=== PATIENT | male | born 1980 | race Caucasian/White ===

== ENCOUNTER → 2017-12-18 12:41 | Outpatient (CLI) | payer OTHER, SELFPAY ==
--- NOTE | 2017-12-18 | XR_ITS ---
Fluoroscopy-guided left shoulder joint injection FL fluoroscopy <1hr, XR shoulder LT 1V CLINICAL INDICATION: ITS.REASON: LT SHOULDER INJURY, PAIN ORDERING PHYSICIAN: Dagoberto Bell MD PATIENT AGE: 37 years COMPARISON: None TECHNIQUE: Following obtaining informed consent aseptic conditions and local anesthesia with 1% lidocaine using fluoroscopy guidance and the anterior approach 22-gauge spinal needle was inserted along the superior medial aspect of the left humeral head within the joint capsule and a small amount of Isovue-300 injected to confirm location and sided joint capsule. Contrast flowed freely about the joint. A mixture of 1 mL of betamethasone, 2 mL's lidocaine, 2 mL bupivacaine was injected without incident. Single view left shoulder: Shows contrast within the joint and joint capsule. No fracture or other significant anomalies. IMPRESSION: Status post fluoroscopy-guided left shoulder joint injection as described above without evidence of immediate complication
== END ==
PROVIDERS: Family Provider Physician Assistant; PCP Physician Assistant; Visit Provider Orthopaedic Surgery
DX: M75.42 Impingement syndrome of left shoulder (principal)
CPT/HCPCS: 73020; 76000

== ENCOUNTER → 2018-03-20 12:53 | Outpatient (CLI) | payer OTHER, SELFPAY ==
--- NOTE | 2018-03-20 12:55 | MR_ITS ---
MR shoulder LT w con, IR arthrogram shoulder LT HISTORY: Left arm pain weakness and limited range of motion, suspected SLAP injury ITS.REASON: SLAP ORDERING PHYSICIAN: Abner Campos MD PATIENT AGE: 37 years COMPARISON: 06/18/2017 IR arthrogram shoulder LT.: TECHNIQUE: Following obtaining informed consent under aseptic conditions with fluoroscopic guidance and local anesthesia with 1% buffered lidocaine using the anterior approach approximately 20 mL's of a mixture of Isovue, gadolinium, and normal saline injected into the left shoulder joint. The patient tolerated the procedure well without evidence of immediate complication. FINDINGS: Homogeneous filling of the left shoulder joint without significant resistance. No abnormal collection of contrast that would indicate a rotator cuff tear. MRI arthrogram: TECHNIQUE: Routine post arthrographic images obtained supplemented with ABER images FINDINGS: There is slight increased T2 signal of the acromioclavicular joint suggesting some mild edema with minimal hypertrophic change along the undersurface of the acromion with minimal impingement upon the supraspinatus muscle and tendon. Mild thickening of the supraspinatus tendon and there is slight increased T2 signal of the distal aspect of the infraspinatus tendon suggesting tendinopathy/tendinosis. There is a small subarticular cyst involving the base of the greater tuberosity medially. There is no evidence of rotator cuff tear. No contrast collection in the subdeltoid region. The glenoid labrum has an unremarkable appearance. No evidence of SLAP lesion. Unremarkable appearing glenohumeral ligaments. Bicipital tendon is in place. No evidence of tendon tear. The rotator interval has an unremarkable gas. IMPRESSION: 1. No evidence of rotator cuff tear or glenoid labral tear. 2. Mild tendinopathy/tendinosis of the supraspinatus and infraspinatus tendons with minimal impingement upon the supraspinatus tendon
== END ==
PROVIDERS: Family Provider Physician Assistant; PCP Physician Assistant; Visit Provider Orthopaedic Surgery
DX: S43.432A Superior glenoid labrum lesion of left shoulder, initial encounter (principal)
CPT/HCPCS: 73040; 73222

== ENCOUNTER → 2018-04-16 11:39 | Outpatient (CLI) | payer OTHER, SELFPAY ==
[2018-04-16 11:59] LABS: Basophils % 0.5 % (0.1-2.0); Eosinophils # 0.5 K/mm3 (0.0-0.4); Eosinophils % 5.8 % (0.1-12.0); Lymphocytes # 3.1 K/mm3 (0.7-4.5); Lymphocytes % 35.5 K/mm3 (10-50); Mean Corpuscular HGB Conc 32.2 g/dL (31.8-35.4); Mean Corpuscular Hemoglobin 28.7 pg (27.0-31.2); Mean Corpuscular Volume 89.2 fl (80-94); Mean Platelet Volume 7.8 fl (7.4-10.4); Monocytes # 0.5 K/mm3 (0.1-1.0); Monocytes % 5.8 % (1.7-9.3); Neutrophils # 4.6 K/mm3 (1.8-7.8); Neutrophils % 52.4 % (37.0-80.0); Platelet Count 190 K/mm3 (142-424); Red Blood Count 6.39 M/mm3 (4.60-6.20); Red Cell Distribution Width 13.6 % (11.5-17.5); White Blood Count 8.8 K/mm3 (4.8-10.8)
--- NOTE | 2018-04-16 12:04 | XR_ITS ---
XR chest 2V HISTORY: ITS.REASON: H/O TOBACCO USE ORDERING PHYSICIAN: Abner Campos MD PATIENT AGE: 37 years COMPARISON: None FINDINGS: Unremarkable cardiovascular structures. There is coarsening of the perihilar and lower lobe markings nonspecific but may be seen with chronic peribronchial inflammatory change/smoking-related lung disease. No lobar consolidation or collapse. No acute bony anomalies. IMPRESSION: Coarsened bronchovascular markings consistent with smoking-related lung disease
[2018-04-16 12:05] LABS: Hemoglobin 18.5 g/dL (14.1-18.0)
[2018-04-16 13:05] LABS: Anion Gap 12.2 mEq/L (5-15); Blood Urea Nitrogen 12 mg/dL (7-18); Carbon Dioxide 28 mmol/L (21.0-32.0); Chloride 104 mmol/L (98-107); Creatinine,Serum 0.73 mg/dL (0.70-1.30); Estimated Glomerular Filt Rate 122 ml/min (>60); GFR (African American) 147 ML/MIN (>60); Glucose 95 mg/dL (74-106); Potassium 4.2 mmoL/L (3.5-5.1); Sodium 140 mmol/L (136-145)
== END ==
PROVIDERS: Visit Provider Orthopaedic Surgery
DX: Z01.818 Encounter for other preprocedural examination (principal); S49.92XD Unspecified injury of left shoulder and upper arm, subsequent encounter; M75.42 Impingement syndrome of left shoulder; M67.912 Unspecified disorder of synovium and tendon, left shoulder; M75.22 Bicipital tendinitis, left shoulder; M19.012 Primary osteoarthritis, left shoulder; Y99.0 Civilian activity done for income or pay
CPT/HCPCS: 36415; 71046; 80048; 85025

== ENCOUNTER → 2018-07-29 13:25 | Outpatient (CLI) | payer OTHER, SELFPAY ==
--- NOTE | 2018-07-29 13:28 | XR_ITS ---
XR shoulder LT min 2V HISTORY: Shoulder pain, follow-up surgery ITS.REASON: 3 month shoulder sx follow up; sx 04/28/18 ORDERING PHYSICIAN: Abner Campos MD PATIENT AGE: 38 years Comparison: None FINDINGS: The glenohumeral joint and acromioclavicular joint has an unremarkable appearance. There is a well-circumscribed lucent defect in the proximal shaft of the humerus likely related to a surgical defect. Please correlate with surgical history. IMPRESSION: Small lucent defect of the proximal humerus which may be postsurgical otherwise no change with no acute finding
== END ==
PROVIDERS: PCP Physician Assistant; Visit Provider Orthopaedic Surgery
DX: Z09 Encounter for follow-up examination after completed treatment for conditions other than malignant neoplasm (principal)
CPT/HCPCS: 73030

== ENCOUNTER → 2018-08-12 09:59 | Outpatient (CLI) | payer OTHER, SELFPAY ==
[2018-08-12 11:40] LABS: Basophils # 0.1 K/mm3 (0-0.2); Eosinophils # 0.4 K/mm3 (0.0-0.4); Mean Platelet Volume 7.9 fl (7.4-10.4); Monocytes # 0.6 K/mm3 (0.1-1.0)
[2018-08-12 11:51] LABS: Basophils % 0.7 % (0.1-2.0); Hematocrit 56.5 % (42.0-52.0); Lymphocytes # 3.1 K/mm3 (0.7-4.5); Lymphocytes % 36.7 K/mm3 (10-50); Mean Corpuscular HGB Conc 33.1 g/dL (31.8-35.4); Mean Corpuscular Hemoglobin 29.9 pg (27.0-31.2); Mean Corpuscular Volume 90.4 fl (80-94); Monocytes % 7.2 % (1.7-9.3); Neutrophils # 4.2 K/mm3 (1.8-7.8); Neutrophils % 50.4 % (37.0-80.0); Platelet Count 201 K/mm3 (142-424); Red Blood Count 6.25 M/mm3 (4.60-6.20); Red Cell Distribution Width 13.5 % (11.5-17.5); White Blood Count 8.4 K/mm3 (4.8-10.8)
[2018-08-12 11:52] LABS: Anion Gap 13.6 mEq/L (5-15); Blood Urea Nitrogen 16 mg/dL (7-18); Calcium 9.7 mg/dL (8.5-10.1); Carbon Dioxide 30 mmol/L (21.0-32.0); Chloride 102 mmol/L (98-107); Creatinine,Serum 0.86 mg/dL (0.70-1.30); Estimated Glomerular Filt Rate 100 ml/min (>60); GFR (African American) 121 ML/MIN (>60); Glucose 90 mg/dL (74-106); Potassium 4.6 mmoL/L (3.5-5.1); Sodium 141 mmol/L (136-145)
[2018-08-12 11:57] LABS: Hemoglobin 18.7 g/dL (14.1-18.0)
== END ==
PROVIDERS: PCP Physician Assistant; Visit Provider Orthopaedic Surgery
DX: Z01.812 Encounter for preprocedural laboratory examination (principal)
CPT/HCPCS: 36415; 80048; 85025

== ENCOUNTER 2018-12-21 09:00 | Outpatient (RCR) | payer OTHER, SELFPAY ==
--- NOTE | 2018-06-17 14:32 | HMH.OTOPEV ---
OT Inpatient Evaluation Rehab OT Outpatient Eval Start: 06/17/18 14:19 Freq: Status: Active Protocol: Document 06/17/18 14:20 TFRY (Rec: 06/17/18 14:32 TFRY [id number]) Electronically Signed By Yumi Davey, OT 06/17/18 14:20 Outpatient Therapy Subjective History Subjective History This is 37 year old left handed male referred to occupational therapy as patient is status post glenohumeral debridement, bicep tenotomy, distal clavicle excision, SAD, open bicep tendoesis. Patient underwent surgery on 04/28/18. 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 Chief Complaint Pain Stiff Symptom Type Sharp Dull Other Symptoms Relieved By Rest/Positioning Symptoms Aggravated By Physical Activity Prior Functional Limitations None Current Functional Limitations Reaching Lifting Housework Sleeping Recreation Activity Level of pain today (0-10) 2 Pain scale - at its best (0-10) 2 Pain scale - at its worst (0-10) 7 Shoulder/Elbow Eval Shoulder Objective Measurements Palpation Tenderness tenderness shoulder exam standard left swelling shoulder exam standard left Shoulder ROM Left Shoulder ROM Limitations Pain Shoulder Abduction Active Range of 60 Motion (degrees) Shoulder Abduction Passive Range of 75 Motion (degrees) Shoulder Flexion Active Range of Motion 75 (degrees) Query Text: Shoulder Flexion Passive Range of Motion 108 (degrees) Shoulder External Rotation Active Range 5 of Motion (degrees) Shoulder External Rotation Passive Range 45 of Motion (degrees) Shoulder Internal Rotation Active Range WFL of Motion (degrees) Shoulder Internal Rotation Passive Range 48 of Motion (degrees) Shoulder Extension Active Range of 28 Motion (degrees) pain with active ROM shoulder exam left standard pain with passive ROM shoulder exam left standard decreased ROM shoulder exam standard left Shoulder MMT Shoulder Strength Reason Not Measured Orthopedic Precautions Elbow Objective Measurements OT Outpatient Assessment
--- NOTE | 2018-10-26 09:41 | HMH.RHREAS ---
Rehab Reassessment Rehab OP Re-assessment Start: 08/31/18 09:08 Freq: Status: Active Protocol: Document 10/26/18 08:35 TFRY (Rec: 10/26/18 09:41 TFRY [id number]) Electronically Signed By Yumi Davey OT 10/26/18 08:35 Rehab Re-assessment Subjective Subjective IT JUST HURTS EVERY ONCE IN A WHILE. Objective Objective Notes PATIENT SEEN THIS DATE FOR SKILLED OT SERVICES. REASESSMENT OF LEFT SHOULDER ROM: PROM - FLEXION - 0-168 AROM - FLEXION - 0-168 ABDUCTION - 0-180 ABDUCTION - 0-140 INT. ROT. - 0-82 INT. ROT. - 0-60 EXT. ROT. - 0-85 EXT. ROT. - 0-72 EXTENSION - 0-55 EXTENSION - 0-53 STRENGTH - FLEXION - 4/5 ABDUCTION - 4/5 INT. ROT. - 4/4+/5 EXT. ROT. - 4/5 EXTENSION - 4/5 PATIENT REPORTS THAT HE HIS ABLE TO DO ALL ADL'S AND OCCASSIONALLY HAS PAIN. EXT. ROT. - 0-85 Assessment Progress Assessment Progressing as Expected Assessment Notes PATIENT IS MAKING PROGRESS WITH STRENGTH AND AROM. Patient goals met STG'S - 8/8 LTG'S - /7 Goals Not Met STRENGTH AND ADVANCED HEP Revised Goals PATIENT TO DEMONSTRATE ABILITY TO LIFT BILATERALLY 150 LBS AWAY FROM BODY FROM GROUND TO OVERHEAD 3 TIMES IN A ROW IN 8 WEEKS. Plan Plan CONTINUE WORKING ON 2 UNMET LTGS AND REVISED GOAL. Frequency of Therapy 2X WEEK Duration of therapy 8 WEEKS Time and Billing Re-Eval Time 5 Re-Eval Billing Units 0 PHYSICIAN CERTIFICATION: I certify the specified therapy services for Elan Saavedra are required, authorized, and reviewed every 30 days.
--- NOTE | 2018-12-21 09:37 | HMH.RHREAS ---
Rehab Reassessment Rehab OP Re-assessment Start: 08/31/18 09:08 Freq: Status: Active Protocol: Document 12/21/18 08:59 TFRY (Rec: 12/21/18 09:36 TFRY [id number]) Electronically Signed By Yumi Davey OT 12/21/18 08:59 Rehab Re-assessment Subjective Subjective I DON'T GO BACK TO THE DOCTOR TILL END OF MONTH. Objective Objective Notes PATIENT SEEN THIS DATE FOR SKILLED OT SERVICES. LEFT SHOULDER AROM - FLEXION - 0- 175 ABDUCTION - 0-135 INT ROT - 0-85 EXT ROT - 0-60 PROM - ABDUCTION - 0-166 LEFT SHOULDER STRENGTH - 5/5 THROUGHOUT DEMONSTRATED ABILITY TO LIFT 80 LBS TO WAIST VERBALIZED UNDERSTANDING OF HEP Assessment Progress Assessment Progressing as Expected Assessment Notes ROM IMPROVED ONLY LIMITATION IS WITH ABDUCTION. 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 Time and Billing Re-Eval Time 5 Re-Eval Billing Units 0 PHYSICIAN CERTIFICATION: I certify the specified therapy services for Elan Saavedra are required, authorized, and reviewed every 30 days.
== END 2019-01-18 13:01 | disposition home or self-care (01) ==
LOC: OT 09:00
PROVIDERS: Family Provider Physician Assistant; PCP Physician Assistant; Visit Provider Orthopaedic Surgery
DX: M75.42 Impingement syndrome of left shoulder (principal); M67.912 Unspecified disorder of synovium and tendon, left shoulder; M75.22 Bicipital tendinitis, left shoulder; M19.012 Primary osteoarthritis, left shoulder
CPT/HCPCS: 97014; 97110; 97140; 97164; 97165; G0283

== ENCOUNTER 2018-12-31 11:20 | Outpatient (RCR) | payer OTHER, SELFPAY | END 2018-12-31 11:30 | disposition home or self-care (01) | LOC: PT 11:20 | PROVIDERS: Visit Provider Orthopaedic Surgery | DX: G56.02 Carpal tunnel syndrome, left upper limb (principal) | CPT/HCPCS: 97760 ==

== ENCOUNTER → 2019-01-13 12:54 | Outpatient (CLI) | payer OTHER, SELFPAY ==
--- NOTE | 2019-01-13 12:57 | MR_ITS ---
MR shoulder LT wo con HISTORY:Left shoulder pain and stiffness with limited range of motion ITS.REASON: had surgery 04/2018; still having stiffness ORDERING PHYSICIAN: Abner Campos MD PATIENT AGE: 38 years Comparison: 03/20/2018 TECHNIQUE: Standard multiplanar multiecho sequences are performed without contrast. FINDINGS: Acromioclavicular hypertrophic changes are less apparent presumed status post surgery. The impingement upon the supraspinatus tendon has decreased from the previous exam. No evidence of rotator cuff tear. The supra and infraspinatus tendons have an unremarkable appearance as does the subscapularis and teres minor tendon. No obvious labral tear. There is mild degree of motion artifact does of skier fine detail. The motion artifact is more prominent on the sagittal and axial images. There is a defect within the proximal shaft of the humerus anteriorly and may be due to transfer of the long head of the biceps tendon. IMPRESSION: 1. No evidence of rotator cuff tear or labral tear. 2. Postsurgical changes of the AC joint with decrease in the impingement upon the supraspinatus tendon 3. Defect within the anterior and proximal cortex of the humerus which may be due to bicipital tendon transfer
== END ==
PROVIDERS: PCP Nurse Practitioner Family; Visit Provider Orthopaedic Surgery
DX: M25.612 Stiffness of left shoulder, not elsewhere classified (principal); M75.42 Impingement syndrome of left shoulder
CPT/HCPCS: 73221

== ENCOUNTER → 2019-01-21 12:00 | Outpatient (CLI) | payer OTHER, SELFPAY ==
--- NOTE | 2019-01-21 12:03 | CA_ITS ---
PROCEDURE: 2-D M-mode and color Doppler study INDICATIONS FOR THE TEST: Chest painX COPD Heart Murmur Tobacco Smoking Palpitations Fatigue Syncope Edema HypertensionXDiabetes Mellitus Rheumatic Fever SOBXDOE Obesity Hyperlipidemia Family History HD Additional History ABN EKG,PRE OP GASTRIC SLEEVE PATIENT INFORMATION HEIGHT: 73 WEIGHT:322 GENDER: Male B/P:147/82 2-D/M-MODE INTERPRETATION: 2-D MEASUREMENTS OBSERVED VALUES IN CMS Right Ventricular Dimension (RVDd) 2.1 Interventricular Septum (Thickness)(IVsd) .9 Left Ventricular Internal Dimensions(LVIDd) 5.7 Left Ventricular Posterior Wall (Thickness)(LVPWd) .9 Aortic Root 3.5 Aortic Cusp Separation 2.0 Left Atrial Dimensions (LAD) 2.3 2D 1. Left atrium is normal size, left ventricle is normal size, no concentric left ventricular hypertrophy, visually estimated ejection fraction 55% with no regional wall motion abnormality. 2. The right atrium and right ventricle are normal size and contractility. 3. The aortic, mitral and tricuspid valvular grossly normal. 4. The pulmonic valve is poorly visualized. 5. No significant pericardial effusion noted. DOPPLER INTERROGATION: Doppler interrogation of the aortic, mitral and tricuspid valvular presence of mild mitral and tricuspid regurgitation, tricuspid regurgitation jet velocity is inadequate for calculation of the right ventricular systolic pressure, diastolic parameters are within normal range. CONCLUSION: 1. Normal left ventricular size, preserved left ventricular systolic function, visually estimated ejection fraction 55% with no regional wall motion abnormality, diastolic parameters are within normal range. 2. Mild mitral and tricuspid regurgitation 3. No significant pericardial effusion noted.
== END ==
PROVIDERS: PCP Nurse Practitioner Family; Visit Provider Internal Medicine
DX: Z01.818 Encounter for other preprocedural examination (principal); R06.02 Shortness of breath; R07.9 Chest pain, unspecified; R94.31 Abnormal electrocardiogram [ECG] [EKG]; I10 Essential (primary) hypertension
CPT/HCPCS: 93017; 93306

== ENCOUNTER → 2019-02-09 14:58 | Outpatient (CLI) | payer OTHER, SELFPAY ==
--- NOTE | 2019-02-09 15:12 | XR_ITS ---
XR chest 2V HISTORY: ITS.REASON: history of smoking and hypertension ORDERING PHYSICIAN: Abner Campos MD PATIENT AGE: 38 years COMPARISON: 04/16/2018 FINDINGS: The cardiomediastinal silhouette and pulmonary vascularity are within normal limits. The lungs are clear without infiltrates, suspicious nodules, or pleural effusions. No acute bony abnormalities. IMPRESSION: Negative chest, no acute finding
[2019-02-09 15:29] LABS: Basophils # 0.1 K/mm3 (0-0.2); Basophils % 0.5 % (0.1-2.0); Eosinophils # 0.3 K/mm3 (0.0-0.4); Eosinophils % 3.4 % (0.1-12.0); Hematocrit 49.9 % (42.0-52.0); Hemoglobin 16.9 g/dL (14.1-18.0); Lymphocytes # 3.9 K/mm3 (0.7-4.5); Lymphocytes % 39.9 % (10-50); Mean Corpuscular HGB Conc 33.8 g/dL (31.8-35.4); Mean Corpuscular Hemoglobin 29.8 pg (27.0-31.2); Mean Corpuscular Volume 88.2 fl (80-94); Mean Platelet Volume 7.5 fl (7.4-10.4); Monocytes # 0.5 K/mm3 (0.1-1.0); Monocytes % 5.6 % (1.7-9.3); Neutrophils # 4.9 K/mm3 (1.8-7.8); Neutrophils % 50.6 % (37.0-80.0); Platelet Count 210 K/mm3 (142-424); Red Blood Count 5.66 M/mm3 (4.60-6.20); Red Cell Distribution Width 13.3 % (11.5-17.5); White Blood Count 9.7 K/mm3 (4.8-10.8)
[2019-02-09 16:21] LABS: Alanine Aminotransferase 36 U/L (12-78); Albumin Level 3.9 gm/dL (3.4-5.0); Alkaline Phosphatase 78 U/L (46-116); Anion Gap 17.2 mEq/L (5-15); Aspartate Amino Transferase 19 U/L (15-37); Bilirubin,Total 0.4 mg/dL (0.2-1.0); Blood Urea Nitrogen 18 mg/dL (7-18); Calcium 9.1 mg/dL (8.5-10.1); Carbon Dioxide 26 mmol/L (21.0-32.0); Chloride 102 mmol/L (98-107); Creatinine,Serum 1.05 mg/dL (0.70-1.30); Estimated Glomerular Filt Rate 79 ml/min (>60); GFR (African American) 96 ML/MIN (>60); Globulin 3.8 gm/dl (1.3-3.2); Glucose 121 mg/dL (74-106); Potassium 4.2 mmoL/L (3.5-5.1); Sodium 141 mmol/L (136-145); Total Protein,Serum 7.7 gm/dL (6.4-8.2)
== END ==
PROVIDERS: Visit Provider Orthopaedic Surgery
DX: Z01.818 Encounter for other preprocedural examination (principal)
CPT/HCPCS: 36415; 71046; 80053; 85025

== ENCOUNTER → 2019-02-19 09:58 | Outpatient (CLI) | payer OTHER, SELFPAY ==
[2019-02-19 14:21] LABS: Basophils % 0.4 % (0.1-2.0); Eosinophils # 0.4 K/mm3 (0.0-0.4); Hemoglobin 14.9 g/dL (14.1-18.0); Lymphocytes # 3.5 K/mm3 (0.7-4.5); Lymphocytes % 35.9 % (10-50); Mean Corpuscular HGB Conc 33.9 g/dL (31.8-35.4); Mean Corpuscular Volume 88.5 fl (80-94); Mean Platelet Volume 8.3 fl (7.4-10.4); Monocytes # 0.6 K/mm3 (0.1-1.0); Monocytes % 6.4 % (1.7-9.3); Neutrophils # 5.3 K/mm3 (1.8-7.8); Neutrophils % 53.4 % (37.0-80.0); Platelet Count 237 K/mm3 (142-424); Red Blood Count 4.97 M/mm3 (4.60-6.20); Red Cell Distribution Width 13.5 % (11.5-17.5); White Blood Count 9.8 K/mm3 (4.8-10.8)
[2019-02-19 14:33] LABS: Alanine Aminotransferase 34 U/L (12-78); Albumin Level 3.4 gm/dL (3.4-5.0); Alkaline Phosphatase 64 U/L (46-116); Anion Gap 11.6 mEq/L (5-15); Aspartate Amino Transferase 15 U/L (15-37); Bilirubin,Total 0.4 mg/dL (0.2-1.0); Blood Urea Nitrogen 26 mg/dL (7-18); Calcium 8.8 mg/dL (8.5-10.1); Carbon Dioxide 30 mmol/L (21.0-32.0); Chloride 104 mmol/L (98-107); Cholesterol 182 mg/dL (140-200); Estimated Glomerular Filt Rate 84 ml/min (>60); Free T4 (Free Thyroxine) 0.83 ng/dl (0.76-1.46); GFR (African American) 102 ML/MIN (>60); Globulin 3.3 gm/dl (1.3-3.2); Glucose 88 mg/dL (74-106); HDL Cholesterol 45 mg/dL (27-67); LDL Cholesterol 118 mg/dL (0-130); Potassium 4.6 mmoL/L (3.5-5.1); Sodium 141 mmol/L (136-145); Thyroid Stimulating Hormone 4.88 uIU/ml (0.358-3.740); Total Protein,Serum 6.7 gm/dL (6.4-8.2); Triglycerides 94 mg/dL (30-200); VLDL Cholesterol 19 mg/dL (0-40)
[2019-02-25 09:48] LABS: Cotinine None Detected (.); Nicotine None Detected (.)
== END ==
PROVIDERS: PCP Nurse Practitioner Family; Visit Provider Nurse Practitioner Family
DX: F17.201 Nicotine dependence, unspecified, in remission (principal); E66.01 Morbid (severe) obesity due to excess calories; I10 Essential (primary) hypertension
CPT/HCPCS: 36415; 80053; 80061; 80323; 84439; 84443; 85025; G0480

== ENCOUNTER → 2019-03-24 10:18 | Outpatient (CLI) | payer OTHER, SELFPAY ==
--- NOTE | 2019-03-24 | NVE_ITS ---
Venous Exam Indications: 782.3 Edema. IMPRESSIONS 1. There is no evidence of significant Reflux. 2. No evidence of deep or superficial vein thrombosis involving the right lower extremity and left lower extremity History: Swelling of both lower extremities. Risk factors: Hypertension. Patient has bruising that showed up yesterday on the right foot and has now spread up to the ankle. He denies trauma. Edema present. Complete lower extremity venous duplex evaluation. Doppler flow study including spectral analysis, color and hensley scale imaging. Location: Vascular laboratory. Patient status: Outpatient. Tables: Venous flow and imaging: + +-------+ + Location Overall Flow properties + +-------+ + Right common femoral Patent Normal phasicity; spontaneous; normal augmentation; compressible + +-------+ + Right saphenofemoral junction Patent Compressible + +-------+ + Right profunda femoral Patent Compressible + +-------+ + Right femoral Patent Normal phasicity; spontaneous; normal augmentation; compressible; no reflux + +-------+ + Right greater saphenous Patent Normal phasicity; spontaneous; normal augmentation; compressible + +-------+ + Right popliteal Patent Normal phasicity; spontaneous; normal augmentation; compressible + +-------+ + Right posterior tibial Patent Compressible + +-------+ + Right peroneal Patent Compressible + +-------+ + Right gastrocnemius Patent Compressible + +-------+ + Right soleal Patent Compressible + +-------+ + Left common femoral Patent Normal phasicity; spontaneous; normal augmentation; compressible + +-------+ + Left saphenofemoral junction Patent Compressible + +-------+ + Left profunda femoral Patent Compressible + +-------+ + Left femoral Patent Normal phasicity; spontaneous; normal augmentation; compressible + +-------+ + Left greater saphenous Patent Normal phasicity; spontaneous; normal augmentati
--- NOTE | 2019-03-24 10:58 | XR_ITS ---
XR foot RT min 3V HISTORY: Foot pain ITS.REASON: RT LEG PAIN ORDERING PHYSICIAN: Jocelynn Thurston PATIENT AGE: 38 years COMPARISON: None FINDINGS: No fracture or dislocation. No lytic or blastic change. There is normal mineralization.. The joint spaces are well-preserved. No significant degenerative/arthritic changes. No erosive changes evident. IMPRESSION: Negative, no acute finding
--- NOTE | 2019-03-24 10:58 | XR_ITS ---
XR ankle RT min 3V HISTORY: ITS.REASON: RT LEG PAIN ORDERING PHYSICIAN: Jocelynn Thurston PATIENT AGE: 38 years Comparison: None FINDINGS: No fracture or dislocation. No lytic or blastic change. There is normal mineralization.. The joint spaces are well-preserved. No significant degenerative/arthritic changes. No erosive changes evident. There is mild soft tissue swelling at the ankle on both sides. IMPRESSION: Mild soft tissue swelling otherwise negative
--- NOTE | 2019-03-24 10:58 | XR_ITS ---
XR tibia fibula RT 2V CLINICAL INDICATION: ITS.REASON: RT LEG PAIN ORDERING PHYSICIAN: Jocelynn Thurston PATIENT AGE: 38 years Comparison: None FINDINGS: No fracture or dislocation. No lytic or blastic change. Tiny calcific density overlies the tibial tuberosity region within the soft tissues at 1 to 2 mm nonspecific. IMPRESSION: No acute finding
== END ==
PROVIDERS: PCP Nurse Practitioner Family; Visit Provider Nurse Practitioner Family
DX: M79.604 Pain in right leg (principal); M79.671 Pain in right foot; M25.571 Pain in right ankle and joints of right foot
CPT/HCPCS: 73590; 73610; 73630; 93970

== ENCOUNTER → 2019-05-06 13:02 | Outpatient (CLI) | payer OTHER, SELFPAY ==
--- NOTE | 2019-05-06 13:08 | XR_ITS ---
XR shoulder LT min 2V HISTORY: ITS.REASON: left shoulder pain/ sp sx 02/10/19 ORDERING PHYSICIAN: Abner Campos MD COMPARISON:: 01/13/2019 FINDINGS: The distal aspect of the clavicle is missing compared to the previous exam consistent with an osteotomy with widening of the acromioclavicular joint space. A small defect once again noted in the proximal shaft of the humerus which may be postsurgical. The glenohumeral joint has an unremarkable appearance. IMPRESSION: Postsurgical changes, no acute finding
== END ==
PROVIDERS: PCP Nurse Practitioner Family; Visit Provider Orthopaedic Surgery
DX: Z09 Encounter for follow-up examination after completed treatment for conditions other than malignant neoplasm (principal); M75.42 Impingement syndrome of left shoulder
CPT/HCPCS: 73030

== ENCOUNTER → 2019-06-01 13:18 | Outpatient (CLI) | payer OTHER, SELFPAY | PROVIDERS: PCP Nurse Practitioner Family; Visit Provider Internal Medicine Pulmonary Disease | DX: G47.33 Obstructive sleep apnea (adult) (pediatric) (principal) | CPT/HCPCS: 95806 ==

== ENCOUNTER 2019-07-07 09:00 | Outpatient (RCR) | payer OTHER, SELFPAY ==
--- NOTE | 2019-02-11 09:53 | HMH.OTOPEV ---
OT Inpatient Evaluation Rehab OT Outpatient Eval Start: 02/11/19 09:42 Freq: Status: Active Protocol: Document 02/11/19 09:42 TFRY (Rec: 02/11/19 09:53 TFRY [id number]) Electronically Signed By Yumi Davey, OT 02/11/19 09:42 Outpatient Therapy Subjective History Subjective History This is a 38 year old left handed male referred to occupational therapy as he underwent arthroscopic revision DCE,SAD, and capsule release to left shoulder on . Patient's initial injury occurried at work. Chief Complaint Pain Stiff Prior Functional Limitations Lifting Current Functional Limitations Reaching Lifting Housework Dressing Sleeping Level of pain today (0-10) 0 Shoulder/Elbow Eval Shoulder Objective Measurements Palpation Tenderness tenderness shoulder exam standard left swelling shoulder exam standard left Shoulder ROM Left Shoulder Abduction Passive Range of 175 Motion (degrees) Shoulder Flexion Passive Range of Motion 175 (degrees) Shoulder External Rotation Passive Range 80 of Motion (degrees) Shoulder Internal Rotation Passive Range 80 of Motion (degrees) Elbow Objective Measurements OT Outpatient Assessment Impairments Problems/Impairments Impaired Range of Motion Impaired Strength Impaired Lifting Impaired Dressing Impaired Shower/Bathing Impaired Household Care Impaired Work Activities Prognosis Rehab Potential Good Clinical Impression Consistent with Diagnosis Yes Short Term Goals Number of Weeks 5 Increase Range of Motion Yes: Left shoulder AROM = PROM Increase Strength Yes: Left Shoulder Strength - 4/5 Restore Ability to Lift Objects to Waist Yes Level Improve Ability to Dress Self Yes Improve Ability to Shower/Bathe Self Yes Improve Ability For Household Care Yes Improve Tolerance to Work Activities Yes Patient to be Ind w/ HEP Yes Patient to be Ind w/ Advanced HEP Yes Longterm Goals Number of Weeks 10 Increase Range of Motion Yes: Left shoulder AROM = PROM Increase Strength Yes: Left Shoulder Strength - 5/5 Rest
--- NOTE | 2019-04-07 09:12 | HMH.RHREAS ---
Rehab Reassessment Rehab OP Re-assessment Start: 04/07/19 08:18 Freq: Status: Active Protocol: Document 04/07/19 08:19 TFRY (Rec: 04/07/19 09:12 TFRY [id number]) Electronically Signed By Yumi Davey OT 04/07/19 08:19 Rehab Re-assessment Subjective Subjective I just have trouble when it comes to things over head. Objective Objective Notes Patient seen this date for skilled occupational therapy services. See exercise flow sheet for exercises. Reassessment of left shoulder AROM: Flexion - 0-155; Abduction - 0-140; int. rot. - 0-80; ext. rot. - 0-70. Left shoulder strength - flexion - 4/5; abduction - 4-/5; int. rot. - 4/5; ext. rot. - 4/5. Patient reports he is able to do everything except he reports that he has difficulty performing overhead tasks. Assessment Progress Assessment Progressing as Expected Assessment Notes AROM and strength improving toward goals. Patient goals met STG's - 6/9 LTG's - 04/25 Goals Not Met Strength and AROM Plan Plan Continue Occupational therapy working on improving strength to 5/5 and continue to work on improving AROM. Frequency of Therapy 2x a week Duration of therapy 5 weeks Time and Billing Re-Eval Time 5 Re-Eval Billing Units 0 PHYSICIAN CERTIFICATION: I certify the specified therapy services for Elan Saavedra are required, authorized, and reviewed every 30 days.
--- NOTE | 2019-05-17 09:50 | HMH.RHREAS ---
Rehab Reassessment Rehab OP Re-assessment Start: 04/07/19 08:18 Freq: Status: Active Protocol: Document 05/17/19 09:36 TFRY (Rec: 05/17/19 09:50 TFRY [id number]) Electronically Signed By Yumi Davey OT 05/17/19 09:36 Rehab Re-assessment Subjective Subjective My pain is a 2 at worse in that shoulder> Objective Objective Notes Patient seen this date for skilled occupational therapy services. See exercise flow sheet for exercises. Reassessment of left shoulder AROM: flexion - 0-160; abduction - 0-135; internal rotation - WFL; external rotation - 0-65. Strength - flexion - 4-/5; abduction - 3+ /5; internal rotation - 3+/5; external rotation - 4-/5. Patient reports that pain is a 2 at worse. Assessment Progress Assessment Slower Than Expected Assessment Notes ROM/strength improving slowly. Recommend to continue therapy may want to consider work conditioning/work hardening in order to return to work. Patient goals met STG's - 9 LTG's - 04/25 Goals Not Met strength and AROM Plan Plan Continue to work toward unmet goals Frequency of Therapy 2x Duration of therapy 6 weeks Time and Billing Re-Eval Time 5 Re-Eval Billing Units 0 PHYSICIAN CERTIFICATION: I certify the specified therapy services for Elan Saavedra are required, authorized, and reviewed every 30 days.
== END 2019-07-07 11:30 | disposition home or self-care (01) ==
LOC: OT 09:00
PROVIDERS: Visit Provider Orthopaedic Surgery
DX: M25.612 Stiffness of left shoulder, not elsewhere classified (principal); M75.52 Bursitis of left shoulder; M75.42 Impingement syndrome of left shoulder; M19.012 Primary osteoarthritis, left shoulder
CPT/HCPCS: 97014; 97110; 97140; 97164; 97165; G0283

== ENCOUNTER → 2019-09-03 12:34 | Outpatient (CLI) | payer OTHER, SELFPAY ==
--- NOTE | 2019-09-03 | ECG_ITS ---
APPROVED REPORT Exam: Resting ECG HR:82 bpm ECG Measurements Heart Rate 82 AXES NV 156 P 69 QRSd 84 QRS 63 QT 344 T 21 QTc 401 <Conclusion> Normal sinus rhythm Normal ECG Electronically signed by : Leroy Roberts, 09/05/2019 14:12:27
--- NOTE | 2019-09-03 12:56 | XR_ITS ---
PROCEDURE: XR CHEST 2V CLINICAL HISTORY: TOBACCO USE, HTN, PRE OP COMPARISON: CXR2V XR chest 2V from 04/16/2018 CXR2V XR chest 2V from 02/09/2019 FINDINGS: The cardiomediastinal silhouette and pulmonary vascularity are within normal limits. The lungs are clear without infiltrates, suspicious nodules, or pleural effusions. No acute bony abnormalities. IMPRESSION: No acute findings. Dictated by: Dr. Ja Fitch MD 09/03/2019 13:[address] Ja Fitch MD in [place] 09/03/2019 13:26
[2019-09-09 21:05] LABS: Cotinine None Detected (.); Nicotine None Detected (.)
== END ==
PROVIDERS: PCP Nurse Practitioner Family; Visit Provider Physician Assistant
DX: Z01.818 Encounter for other preprocedural examination (principal); R12 Heartburn; I10 Essential (primary) hypertension; E66.01 Morbid (severe) obesity due to excess calories; Z71.3 Dietary counseling and surveillance; Z72.0 Tobacco use
CPT/HCPCS: 71046; 80323; 93005; G0480

== ENCOUNTER → 2019-11-05 11:51 | Outpatient (CLI) | payer SELFPAY ==
[2019-11-05 12:27] LABS: Basophils # 0.1 K/mm3 (0-0.2); Basophils % 0.4 % (0.1-2.0); Eosinophils # 0.5 K/mm3 (0.0-0.4); Eosinophils % 3.5 % (0.1-12.0); Hematocrit 57.2 % (42.0-52.0); Lymphocytes # 2.5 K/mm3 (0.7-4.5); Mean Corpuscular HGB Conc 31.4 g/dL (31.8-35.4); Mean Corpuscular Hemoglobin 28.8 pg (27.0-31.2); Mean Corpuscular Volume 91.8 fl (80-94); Mean Platelet Volume 8.3 fl (7.4-10.4); Monocytes # 0.5 K/mm3 (0.1-1.0); Monocytes % 3.8 % (1.7-9.3); Neutrophils # 10.3 K/mm3 (1.8-7.8); Neutrophils % 74.3 % (37.0-80.0); Platelet Count 231 K/mm3 (142-424); Red Blood Count 6.23 M/mm3 (4.60-6.20); Red Cell Distribution Width 13.7 % (11.5-17.5); White Blood Count 13.8 K/mm3 (4.8-10.8)
[2019-11-05 14:25] LABS: Alanine Aminotransferase 38 U/L (12-78); Albumin/Globulin Ratio 1.2 (1.1-1.8); Alkaline Phosphatase 78 U/L (46-116); Anion Gap 15.3 mEq/L (5-15); Aspartate Amino Transferase 24 U/L (15-37); Bilirubin,Total 0.6 mg/dL (0.2-1.0); Blood Urea Nitrogen 7 mg/dL (7-18); Calcium 9.6 mg/dL (8.5-10.1); Carbon Dioxide 29 mmol/L (21.0-32.0); Chloride 103 mmol/L (98-107); Chol/HDL Ratio 6.2 (1-3.5); Cholesterol 210 mg/dL (140-200); Creatinine,Serum 0.89 mg/dL (0.70-1.30); Estimated Glomerular Filt Rate 96 ml/min (>60); Ferritin 243 ng/mL (8-388); GFR (African American) 116 ML/MIN (>60); Globulin 3.4 gm/dl (1.3-3.2); Glucose 81 mg/dL (74-106); HDL Cholesterol 34 mg/dL (27-67); Iron 54 ug/dl (28-170); LDL Cholesterol 158 mg/dL (0-130); Magnesium 1.4 mg/dL (1.4-2.2); Phosphorous 3.3 mg/dL (2.4-4.9); Potassium 4.3 mmoL/L (3.5-5.1); Sodium 143 mmol/L (136-145); Thyroid Stimulating Hormone 2.87 uIU/ml (0.358-3.740); Total Protein,Serum 7.4 gm/dL (6.4-8.2); Triglycerides 90 mg/dL (30-200); VLDL Cholesterol 18 mg/dL (0-40)
[2019-11-05 16:51] LABS: Hemoglobin A1C 5.5 % (0.0-7.0)
[2019-11-06 13:05] LABS: Prealbumin 16 mg/dL (14-35); Vitamin D 25 Hydroxy 20.3 ng/mL (30.0-100.0)
[2019-11-06 17:44] LABS: Parathyroid Hormone Intact 13 pg/mL (15-65)
[2019-11-11 05:18] LABS: Vitamin B1 149.9 nmol/L (66.5-200.0)
[2019-11-12 12:09] LABS: Methylmalonic Acid 120 nmol/L (0-378)
[2019-11-13 21:07] LABS: Vitamin E Alpha Tocopherol 7.5 mg/L (5.9-19.4)
[2019-11-14 16:27] LABS: Vitamin A 21.3 ug/dL (18.9-57.3); Vitamin E Gamma Tocopherol 1.5 mg/L (0.7-4.9)
== END ==
PROVIDERS: Visit Provider Physician Assistant
DX: R63.4 Abnormal weight loss (principal); I10 Essential (primary) hypertension; R53.83 Other fatigue; Z98.84 Bariatric surgery status
CPT/HCPCS: 36415; 80053; 80061; 82131; 82652; 82728; 82746; 83036; 83540; 83735; 83970; 84100; 84134; 84425; 84443; 84446; 84590; 85025

== ENCOUNTER → 2020-01-18 12:50 | Outpatient (CLI) | payer OTHER, SELFPAY ==
--- NOTE | 2020-01-18 12:55 | XR_ITS ---
PROCEDURE: XR FOOT WT BEARING RT 3V CLINICAL INDICATION: hammertoes COMPARISON: No exams were available for comparison FINDINGS: No fracture or dislocation. No lytic or blastic change. There is normal mineralization. The joint spaces are well-preserved. No significant degenerative/arthritic changes. No erosive changes evident. Other findings:None. IMPRESSION: No acute findings. Dictated by: Uday Olivarez MD 01/18/2020 13:30 Electronically signed by Uday Olivarez MD in [place] 01/18/2020 13:30
--- NOTE | 2020-01-18 12:55 | XR_ITS ---
PROCEDURE: XR FOOT WT BEARING LT 3V CLINICAL INDICATION: hammertoes COMPARISON: No exams were available for comparison FINDINGS: No fracture or dislocation. No lytic or blastic change. There is normal mineralization. The joint spaces are well-preserved. No significant degenerative/arthritic changes. No erosive changes evident. Other findings:Flexion deformity involves the 2nd 3rd and 4th toes. IMPRESSION: Second 3rd and 4th hammertoe deformity Dictated by: Uday Olivarez MD 01/18/2020 13:31 Electronically signed by Uday Olivarez MD in [place] 01/18/2020 13:31
== END ==
PROVIDERS: PCP Nurse Practitioner Family; Visit Provider Podiatrist
DX: M20.42 Other hammer toe(s) (acquired), left foot (principal); M20.41 Other hammer toe(s) (acquired), right foot
CPT/HCPCS: 73630

== ENCOUNTER → 2020-04-03 12:00 | Outpatient (CLI) | payer OTHER, SELFPAY ==
--- NOTE | 2020-04-03 12:07 | XR_ITS ---
PROCEDURE: XR CHEST 2V CLINICAL HISTORY: PREOP, FORMER SMOKER Former smoker COMPARISON: CXR2V XR chest 2V from 04/16/2018 CXR2V XR chest 2V from 02/09/2019 XR CHEST 2V from 09/03/2019 FINDINGS: The cardiomediastinal silhouette and pulmonary vascularity are within normal limits. The lungs are clear without infiltrates, suspicious nodules, or pleural effusions. No acute bony abnormalities. IMPRESSION: No acute findings. Dictated by: Uday Olivarez MD 04/03/2020 13:16 Electronically signed by Uday Olivarez MD in [place] 04/03/2020 13:16
--- NOTE | 2020-04-03 12:40 | ECG_ITS ---
APPROVED REPORT Exam: Resting ECG HR:59 bpm ECG Measurements Heart Rate 59 AXES NE 126 P 63 QRSd 88 QRS 42 QT 390 T 44 QTc 386 <Conclusion> Sinus bradycardia Incomplete RBBB Otherwise normal ECG Electronically signed by : Solo Wilson, 04/03/2020 15:44:37
[2020-04-03 13:12] LABS: Basophils # 0.1 K/mm3 (0-0.2); Basophils % 0.8 % (0.1-2.0); Eosinophils # 0.3 K/mm3 (0.0-0.4); Eosinophils % 4.3 % (0.1-12.0); Hematocrit 49.9 % (42.0-52.0); Hemoglobin 16.7 g/dL (14.1-18.0); Lymphocytes % 37.9 % (10-50); Mean Corpuscular HGB Conc 33.5 g/dL (31.8-35.4); Mean Corpuscular Hemoglobin 29.9 pg (27.0-31.2); Mean Corpuscular Volume 89.2 fl (80-94); Mean Platelet Volume 7.9 fl (7.4-10.4); Monocytes # 0.5 K/mm3 (0.1-1.0); Monocytes % 6.7 % (1.7-9.3); Neutrophils % 50.3 % (37.0-80.0); Platelet Count 219 K/mm3 (142-424); Red Blood Count 5.59 M/mm3 (4.60-6.20); Red Cell Distribution Width 14.5 % (11.5-17.5)
[2020-04-03 13:32] LABS: Alanine Aminotransferase 13 U/L (12-78); Albumin Level 4.5 g/dl (3.5-5.0); Albumin/Globulin Ratio 1.5 (1.1-1.8); Alkaline Phosphatase 74 U/L (38-126); Aspartate Amino Transferase 19 U/L (17-59); Bilirubin,Total 0.7 mg/dl (0.2-1.3); Blood Urea Nitrogen 11 mg/dl (9-20); Calcium 9.9 mg/dl (8.4-10.2); Carbon Dioxide 27 mmol/L (22.0-30.0); Chloride 106 mmol/L (98-107); Estimated Glomerular Filt Rate 108 ml/min (>60); GFR (African American) 131 ML/MIN (>60); Globulin 3.1 g/dL (1.3-3.2); Glucose 98 mg/dl (74-100); Sodium 138 mmol/L (136-145); Total Protein,Serum 7.6 g/dl (6.3-8.2)
== END ==
PROVIDERS: PCP Nurse Practitioner Family; Visit Provider Podiatrist
DX: Z01.810 Encounter for preprocedural cardiovascular examination (principal); Z87.891 Personal history of nicotine dependence; M20.42 Other hammer toe(s) (acquired), left foot; M20.12 Hallux valgus (acquired), left foot
CPT/HCPCS: 36415; 71046; 80053; 85025; 93005

== ENCOUNTER → 2020-04-11 09:02 | Outpatient (CLI) | payer OTHER, SELFPAY ==
[2020-04-11 10:12] LABS: Coronavirus 19 IgG Antibody Negative (Negative); Coronavirus 19 IgM Antibody Negative (Negative)
[2020-04-11 11:20] LABS: Chol/HDL Ratio 5.3 (1-3.5); Cholesterol 223 mg/dl (140-200); HDL Cholesterol 42 mg/dl (40-60); Iron 107 ug/dL (49-181); Magnesium 1.8 mg/dl (1.6-2.3); Phosphorous 3.8 mg/dl (2.5-4.5); Triglycerides 112 mg/dl (30-150); VLDL Cholesterol 22 mg/dL (0-40)
[2020-04-11 11:31] LABS: Direct LDL Cholesterol 177.48 mg/dL (100-129)
[2020-04-11 11:51] LABS: Hemoglobin A1C 5.2 % (4.0-6.0)
[2020-04-11 11:52] LABS: Thyroid Stimulating Hormone 3.76 uIU/mL (0.465-4.68)
[2020-04-11 11:56] LABS: Ferritin 129 ng/ml (17.9-464)
[2020-04-12 14:34] LABS: Prealbumin 18 mg/dL (14-35); Vitamin D 25 Hydroxy 20.9 ng/mL (30.0-100.0)
[2020-04-13 09:59] LABS: Parathyroid Hormone Intact 13 pg/mL (15-65)
[2020-04-13 17:44] LABS: Vitamin B1 134.5 nmol/L (66.5-200.0)
[2020-04-14 01:11] LABS: Methylmalonic Acid 262 nmol/L (0-378)
[2020-04-14 08:18] LABS: Vitamin E Alpha Tocopherol 9.4 mg/L (5.9-19.4)
[2020-04-14 13:40] LABS: Vitamin E Gamma Tocopherol 2.1 mg/L (0.7-4.9)
[2020-04-15 11:12] LABS: Vitamin A 24.9 ug/dL (18.9-57.3)
== END ==
PROVIDERS: Visit Provider Podiatrist
DX: Z01.818 Encounter for other preprocedural examination (principal); E53.8 Deficiency of other specified B group vitamins; E55.9 Vitamin D deficiency, unspecified; E66.01 Morbid (severe) obesity due to excess calories; R53.83 Other fatigue; Z98.84 Bariatric surgery status
CPT/HCPCS: 36415; 80061; 82131; 82652; 82728; 82746; 83036; 83540; 83735; 83970; 84100; 84134; 84425; 84443; 84446; 84590; 86328

== ENCOUNTER 2020-04-12 06:09 | Day surgery (SDC) | payer OTHER, SELFPAY ==
--- NOTE | 2020-04-07 08:52 | SUR.PREOP ---
04/07/2020 @ 0900--PHONE CALL MADE TO PATIENT. PATIENT UNDERSTANDS THAT LAB WORK AND COVID TESTING NEEDS TO BE COMPLETED BEFORE 930 ON 04/11/2020. PATIENT UNDERSTANDS IF LAB WORK AND COVID-19 TESTS ARE NOT COMPLETED BY 12PM ON THAT DATE, THE SURGERY SCHEDULED WILL BE CANCELLED AND RESCHEDULED FOR ANOTHER TIME.
[2020-04-11 12:59] VITALS: BMI 34.0
[2020-04-12] VITALS (14 sets, daily range): BP systolic 122–162; BP diastolic 69–99; PULSE 72–100; RESP 12–26; TEMP 36.2–43; O2SAT 92–99
--- NOTE | 2020-04-12 08:05 | HMH.ANESCL ---
[facility] Anesthesia Checklist - Patient Identification Patient Identification: Arm Band, Verbal (Name & ) - Structural Data Admitted From: Home Planned Operative Procedure/s: Left hammertoe repair 2nd-4th, callus debridement, shay osteotomy Consent for Planned Operative Procedure(s) Verified: Yes Verified Documents: Surgical Consent, History and Physical - NPO Status Verified Time NPO: 23:00 - Chart Verification Results Verified: BMP - Additional verifications Anesthesia Reactions: No Hx Blood Transfusions: No Blood Transfusion Reaction: No - Airway Assessment C-Spine Mobility Assessed: Yes TMJ Mobility Assessed: Yes Dentition: Dentures-good fit (removed) - Neurological Assessment Level of Consciousness: Awake, Alert, Appropriate, Follows Commands Hx Seizures: No Numbness or tingling in extremities: No - Anesthesia Plan Anesthesia Risk discussed: Yes Anesthesia Plan: Verified ASA Class: II Anesthesia Type: General w/block (LMA GA with postop pain left popliteal nerve block) [facility] History I have reviewed the patient's past medical history: Yes Medical History: Reports:: Kidney Stones, Ulcer Denies:: Cancer, Diabetes Mellitus Type 1, Diabetes Mellitus Type 2, Internal Pacemaker, MRSA, Seizures *Have you ever received a pneumonia vaccine?: No *Have you received a flu vaccine this season?: Yes Other Medical History: Denies: Blood Transfusion Reaction Comment:: Crohn's disease, obesity Anesthesia experience/problems:: none Laterality Cases: Left: Arthroscopy Shoulder, Bilateral: Tonsillectomy Other Surgeries: Yes: Bariatric Surgery (Gastric Sleeve Oct 08, 2019), Cholecystectomy. No: Pacemaker Amputation: No Fractures: No - *Social History Educational Level: Attended College Smoking Status: Former smoker Tobacco Type: cigarettes # Packs/Day (cigarettes): 1 Alcohol Intake: never Alcohol Intake Frequency:: 0-2 drinks per day Substance Use Type: denies use *Occupational Status:: unemployed Housing: house Household Members: family *Travel in the last 8 weeks: None Family Hx:: No significant family history
--- NOTE | 2020-04-12 09:11 | XR_ITS ---
PROCEDURE: XR FOOT LT 2V CLINICAL INDICATION: HAMMER TOE COMPARISON: XR FOOT WT BEARING RT 3V from 01/18/2020 XR FOOT WT BEARING LT 3V from 01/18/2020 FINDINGS: Fluoroscopy time: 28 seconds Images are submitted following hammertoe surgery with pin placement through the 2nd 3rd 4th and 5th phalanges as well as a staple along the medial aspect of the proximal phalanx of the great toe. Other findings:None. IMPRESSION: Postsurgical changes Dictated by: Uday Olivarez MD 04/12/2020 16:25 Electronically signed by Uday Olivarez MD in [place] 04/12/2020 16:25
--- NOTE | 2020-04-12 09:30 | XR_ITS ---
PROCEDURE: XR FOOT LT MIN 3V CLINICAL INDICATION: Post op HT Follow-up surgery COMPARISON: XR FOOT WT BEARING RT 3V from 01/18/2020 XR FOOT WT BEARING LT 3V from 01/18/2020 XR FOOT LT 2V from 04/12/2020 FINDINGS: Status post osteotomy at the distal aspect of the proximal phalanx of the great toe with a staple noted medially with good alignment. Pins have been placed through the toes from the distal phalanx through the middle phalanx and into the proximal phalanx of the 2nd 3rd 4th and 5th toes with improvement in hammertoe deformity. Posterior splint is in place. IMPRESSION: The postsurgical changes as described above Dictated by: Uday Olivarez MD 04/12/2020 16:18 Electronically signed by Uday Olivaerz MD in [place] 04/12/2020 16:18
--- NOTE | 2020-04-12 09:40 | HMH.ANESI ---
[facility] Anesthesia Record Part I Intake, IV Amount: 1,000 Estimated blood loss (mL): 0 Urine output (mL): 0 Blood Pressure: 154/90 SaO2: 95 Pulse Rate: 96 Respiratory Rate: 12 Temperature: 97.8 F Patient is:: Awake, Stable Stable to PACU at:: 09:35
--- NOTE | 2020-04-12 09:47 | HMH.OPNOTE ---
Date of procedure: 04/12/20 Pre-op Diagnosis:: 1. Left hallux interphalangus 2. Left hammertoe deformity 2?5 3. Left gastrocnemius equinus 4. Left medial plantar hallux callus 5. Left plantar sub-third metatarsal callus/lesion Post-op Diagnosis:: Same Procedure performed:: 1. Left hammertoe repair 2?4 (PIPJ AD with implant) 2. Left hammertoe repair 5 (PIPJ AP) 3. Left [place] osteotomy 4. Left gastrocnemius recession 5. Left callus debridement (excision of lesion) 6. Application of posterior splint Surgeon:: Felicia Beltrán DPM INSPECTION MACHINE TENDER:: Kike Elizabeth Anesthesia: GETA, regional (Left popliteal nerve block) Estimated blood loss (mL): 10 Clinical Note:: Patient is a 39M who presents for continued painful hammertoes. X-rays 3 views b/l feet WB taken 01/18/20, evaluated by myself. Report reviewed. No fracture or dislocation. No lytic or blastic change. There is normal mineralization. The joint spaces are well-preserved. No significant degenerative/arthritic changes. No erosive changes evident. Other findings: Flexion deformity involves the 2nd 3rd and 4th toes. We discussed x-rays and conservative versus surgical treatment options. Conservative treatment options include change shoe wear, prefab or custom molded inserts, strapping, taping and padding. Patient can also take NSAIDs, ice and elevate for pain and swelling. He has wider and deeper shoes to accommodate the deformity. He has used spacers, callus remover, met pads and still has pain. After a long discussion with the patient in regards to the conservative versus surgical treatment for the hammertoe deformity, the patient has elected to proceed with surgery because they have failed conservative treatment and continue to have pain and worsening symptoms affecting daily activities. The patient has been instructed on the planned procedure, all risk versus benefits of the procedure to include bleeding, infection, nerve and blood vessel damage, need for further surgery, delay in healing of soft tissue or bone, failure of bones to heal, non-union, mal-union, prolonged pain and recovery, prolonged swelling, CRPS/RSD, DVT and anesthetic complications. No guarantees were given. All questions fully answered. The patient verbalized understanding and agreed to proceed with surgery. Written consent was obtained. Medical clearance per PCP-Jocelynn Thurston. Necessary labs and pre-op testing ordered: CBC, CMP, EKG, CXR. e-Rx for Ramsey 7.5/325 # 28, Motrin 800mg # 60. Patient states he is okay to take NSAIDs occasionally. He has Zofran left from his right shoulder surgery last year. Patient will need crutches on DOS. Fitted and dispensed short fracture boot (size 12) in office. Operative findings:: Hallux interphalangeus noted with callus on the medial plantar hallux. Callus noted to the plantar third metatarsal deep to the subcutaneous tissue. Hammertoe deformity 2?5. Fourth and fifth toes have adductovarus rotation. Gastroc equinus released with the recession procedure. Operative note:: On this date and time patient was deemed an appropriate surgical candidate. Preop regional left popliteal block by anesthesia. With informed consent signed, the patient was taken to the operating theater. The patient was positioned supine. General anesthesia was induced. Tourniquet was applied to the left mid-calf at 225 mmHg. The left lower extremity was prepped and drapped in normal sterile fashion. Left gastrocnemius recession: Attention was directed to the posterior leg medially a linear incision was mapped out. Dissection was carried through the skin to subcutaneous tissue with care taken to maintain surgical hemostasis and safely retract neurovascular structures. Patient was then carried down bluntly through the subcutaneous tissue to the peritenon overlying the gastrocnemius muscle. The peritenon was transected and preserved for later closure. The gastroc was identified and utilizing a 15 blade a Lexis transverse incision was made while the
--- NOTE | 2020-04-12 21:15 | P.PN_ITS ---
[facility] Anesthesia Record Part II Discharge Time: 11:18 Destination: Home PACU nurse assessment reviewed?: Yes Patient Condition:: Good Anesthesia Complications:: None Swallowing reflex intact?: Yes Cyanosis?: No Blood Pressure: 122/73 Pulse Rate: 73 Temperature: 98.0 F Mental Status: Alert & Oriented Pain level:: 0 Nausea and/or vomitting:: None Intake, IV Amount: 0 Comments:: RR 16, O2sat 99% RA
== END 2020-04-12 11:18 | disposition home or self-care (01) ==
LOC: OR 06:10
PROVIDERS: PCP Nurse Practitioner Family; Visit Provider Podiatrist
PROC: (CPT 27687; principal; 2020-04-12 07:30)
DX: M20.42 Other hammer toe(s) (acquired), left foot (principal); L84 Corns and callosities; M21.6X2 Other acquired deformities of left foot; M24.572 Contracture, left ankle; E55.9 Vitamin D deficiency, unspecified; Z87.891 Personal history of nicotine dependence
CPT/HCPCS: 27687; 28285 ×4; 11055; 73620; 73630; 76000; 96374; C1713; C1769; J2405

== ENCOUNTER → 2020-04-27 10:16 | Outpatient (CLI) | payer OTHER, SELFPAY ==
--- NOTE | 2020-04-27 10:21 | XR_ITS ---
PROCEDURE: XR FOOT WT BEARING LT 3V CLINICAL INDICATION: postop views Follow-up surgery COMPARISON: XR FOOT WT BEARING RT 3V from 01/18/2020 XR FOOT WT BEARING LT 3V from 01/18/2020 XR FOOT LT MIN 3V from 04/12/2020 XR FOOT LT 2V from 04/12/2020 FINDINGS: Pins are once again noted extending from the tip of the distal phalanx into the proximal aspect of the proximal phalanx of the 2nd 3rd and 5th digits. The 4th digit pin has been removed. The proximal aspect of the pin at the 2nd digit extends dorsal to the bone at the proximal phalanx. There is a metallic staple along the medial aspect at osteotomy site at the proximal phalanx of the 1st toe IMPRESSION: Postsurgical changes as described above with good alignment Dictated by: Uday Olivarez MD 04/27/2020 13:52 Electronically signed by Uday Olivarez MD in [place] 04/27/2020 13:52
== END ==
PROVIDERS: PCP Nurse Practitioner Family; Visit Provider Podiatrist
DX: Z98.890 Other specified postprocedural states (principal); M20.42 Other hammer toe(s) (acquired), left foot; M20.12 Hallux valgus (acquired), left foot; B07.8 Other viral warts
CPT/HCPCS: 73630

== ENCOUNTER → 2020-05-11 09:39 | Outpatient (CLI) | payer OTHER, SELFPAY ==
--- NOTE | 2020-05-11 09:46 | XR_ITS ---
PROCEDURE: XR FOOT WT BEARING LT 3V CLINICAL INDICATION: post-op COMPARISON: XR FOOT WT BEARING RT 3V from 01/18/2020 XR FOOT LT MIN 3V from 04/12/2020 XR FOOT LT 2V from 04/12/2020 XR FOOT WT BEARING LT 3V from 04/27/2020 FINDINGS: There are no significant interval changes. Pins traversing the 2nd 3rd and 5th digits and a staple traversing an osteotomy site of the proximal 1st digit are again noted. IMPRESSION: Stable postsurgical changes as above Dictated by: Juvencio Pendleton 05/11/2020 09:56 Electronically signed by Juvencio Pendleton in [place] 05/11/2020 09:56
== END ==
PROVIDERS: PCP Nurse Practitioner Family; Visit Provider Podiatrist
DX: Z98.890 Other specified postprocedural states (principal)
CPT/HCPCS: 73630

== ENCOUNTER 2020-05-29 19:51 | Emergency (ER) | payer OTHER, SELFPAY ==
[2020-05-29 20:12] VITALS: BP 133/72; PULSE 117; RESP 16; TEMP 38.8; O2SAT 98; BMI 31.9
--- NOTE | 2020-05-29 20:23 | HMH.EDUTC ---
[facility] [place] Clinical Impression: Viral syndrome Disposition: Home, Self-Care Condition on Discharge: Good Instructions: DI for Viral Syndrome Additional Instructions: Follow up with your regular doctor. Take the medications as directed. Self-quarantine until your results of your COVID-19 test is back. GO TO THE ER FOR ANY WORSENING SYMPTOMS OR CONCERNS SELF-QUARANTINE UNTIL THE RESULTS OF YOUR COVID-19 TEST IS BACK. Prescriptions: Ondansetron [Zofran 4mg ODT] 4 mg PO Q8HP PRN #20 tab.rapdis PRN Reason: Nausea Transmission Status: Received by [facility] Azithromycin [Z-Golden 250mg Tab*] 250 mg PO UD DOSE PK #6 tab Transmission Status: Received by [facility] Referrals: Jocelynn Thurston [Primary Care Provider] - Forms: Work/School Release Time of Disposition: 21:03 Medical Decision Making - Medical Records Medical records reviewed: No: I reviewed the patient's medical records. - Stanton Inquiry Pt receiving controlled substance: No Vital Signs: 05/29/20 20:12 05/29/20 20:28 05/29/20 21:05 Temperature 101.9 F H 101.9 F H 101.9 F H Temperature Source Oral Oral Pulse Rate 117 H Pulse Rate [Left Radial] 117 H 117 H Respiratory Rate 16 16 16 Blood Pressure 133/72 Blood Pressure [Right Arm] 133/72 133/72 Blood Pressure Mean [Right Arm] 92 92 Blood Pressure Source [Right Arm] Automatic Cuff Automatic Cuff Blood Pressure Position [Right Arm] Sitting Sitting 02 Sat by Pulse Oximetry 98 98 Oxygen Delivery Method Room Air Room Air - Lab Data Lab results reviewed: Yes: I reviewed the patient's lab results. Lab Results 05/29/20 20:35: Influenza Type A Ag Negative, Influenza Type B Ag Negative 05/29/20 20:35: Strep Scn Rapid Clinic Negative 05/29/20 21:18: Urine Color Yellow, Urine Appearance Clear, Urine pH 6.5, Ur Specific Shannon 1.015, Urine Protein Negative, Urine Glucose (UA) Negative, Urine Ketones Negative, Urine Blood Trace, Urine Nitrate Negative, Urine Bilirubin 1+ A, Urine Urobilinogen 1, Ur Leukocyte Esterase Negative Orders (Tests/Meds): ED MEDICATIONS Discontinued Medications Generic Name Dose Route Start Last Admin Trade Name Freq PRN Reason Stop Dose Admin Azithromycin 500 mg 05/29/20 20:49 05/29/20 20:54 Zithromax 250mg Tablet PO 05/29/20 20:50 500 mg ONCE ONE Administration Protocol Ibuprofen 800 mg 05/29/20 20:26 05/29/20 20:27 Motrin 400mg Tablet PO 05/29/20 20:27 800 mg ONCE ONE Administration ORDERS Category Date Time Status SARS-CoV-2, FLO Stat Lab 05/29/20 20:45 Received Strep Screen Confirmation Stat Micro 05/29/20 20:35 Received [facility] HPI - General Stated complaint: Fever 101.3 fatigue,nauseated,diarrhea Time Seen by Provider: 05/29/20 20:24 Limitations: No Limitations Description of Symptoms (Recalled from Triage Doc. by RN): pt complains of body aches, nausea and lethargy since last night. pt stated he had a 101 fever at home earlier today but didnt take any medication for treatment - History of Present Illness Provider Complaint: He states that he has been running a fever and feeling bad since yesterday evening. Thru out today he has felt progressively worse. He denies chest congestion and chest pain, but he has had a mild dry cough. He has had nausea but no vomiting. He denies any diarrhea. - Related Data Home Medications Medication Instructions Recorded Confirmed cholecalciferol (vitamin D3) 1,250 1,250 mcg PO QWEEK cap 01/18/20 05/11/20 mcg (50,000 unit) capsule Previous Rx's Medication Instructions Recorded hydrocodone 7.5 mg-acetaminophen 1 tab PO Q4-6H PRN #30 tab 04/03/20 325 mg tablet ibuprofen 800 mg tablet 800 mg PO BID #60 tab 04/03/20 clindamycin HCl 300 mg capsule 300 mg PO TID 14 Days #42 cap 05/10/20 Azithromycin [Z-Golden 250mg Tab*] 250 mg PO UD DOSE PK #6 tab 05/29/20 Ondansetron [Zofran 4mg ODT] 4 mg PO Q8HP PRN #20 tab.rap
[2020-05-29 20:28] VITALS: BP 133/72; PULSE 117; RESP 16; TEMP 38.8; O2SAT 98; BMI 32.1
[2020-05-29 20:38] LABS: UTC Influenza A Antigen Negative (Negative); UTC Strep Screen (Rapid) Negative (Negative)
[2020-05-29 20:39] LABS: UTC Influenza B Antigen Negative (Negative)
--- NOTE | 2020-05-29 20:43 | XR_ITS ---
PROCEDURE: XR CHEST 2V CLINICAL HISTORY: fever, chills, cough COMPARISON: CXR2V XR chest 2V from 02/09/2019 XR CHEST 2V from 09/03/2019 XR CHEST 2V from 04/03/2020 FINDINGS: The cardiomediastinal silhouette and pulmonary vascularity are within normal limits. The lungs are clear without infiltrates, suspicious nodules, or pleural effusions. There is a well-circumscribed lucency in the proximal shaft of the left humerus measuring approximately 7 mm. This may be postsurgical in nature from prior bicipital tendon transfer. Please correlate patient's surgical history IMPRESSION: No acute cardiac or pulmonary findings. Well-circumscribed lucency proximal left humerus possibly postsurgical. Please correlate with clinical findings and surgical history Dictated by: Uday Olivarez MD 05/30/2020 07:54 Electronically signed by Uday Olivarez MD in [place] 05/30/2020 07:54
[2020-05-29 21:05] VITALS: BP 133/72; PULSE 117; RESP 16; TEMP 38.8; O2SAT 98
[2020-05-29 21:19] LABS: Apearance,Urine Clear (Clear); Bilirubin,Urine 1+ (Negative); Blood, Urine Trace (Negative); Color,Urine Yellow (Yellow); Glucose,Urine (UA) Negative (Negative); Ketones,Urine Negative (Negative); PH,Urine 6.5 (5.0-8.5); Protein,Urine Negative (Negative); Specific Gravity, Urine 1.015 (1.005-1.030); UTC Leukocyte Esterase,Urine Negative (Negative); UTC Nitrate,Urine Negative (Negative); Urobilinogen,Urine 1 EU/dl (0.2)
[2020-05-31 13:15] LABS: Covid-19 Nasal PCR Sendout Lex Not Detected
== END 2020-05-29 21:15 | disposition home or self-care (01) ==
PROVIDERS: Emergency Provider Nurse Practitioner Family; PCP Nurse Practitioner Family
DX: B34.9 Viral infection, unspecified (principal); K21.9 Gastro-esophageal reflux disease without esophagitis; I10 Essential (primary) hypertension; Z87.442 Personal history of urinary calculi; Z87.891 Personal history of nicotine dependence
CPT/HCPCS: 71046; 81003; 87804; 87880; 99202; 99203; U0004

== ENCOUNTER → 2020-06-01 10:17 | Outpatient (CLI) | payer OTHER, SELFPAY ==
--- NOTE | 2020-06-01 10:20 | XR_ITS ---
PROCEDURE: XR FOOT WT BEARING LT 3V CLINICAL INDICATION: postop views Follow-up surgery COMPARISON: No exams were available for comparison FINDINGS: Compared to the previous exam the pins have been removed from the 2nd 3rd and 5th toes. There remains screws within the PIP joint of the 2nd and 3rd toe and a stable at the osteotomy site of the proximal phalanx of the great toe with good alignment. IMPRESSION: Postsurgical changes as described Dictated by: Uday Olivarez MD 06/01/2020 13:21 Electronically signed by Udya Olivarez MD in [place] 06/01/2020 13:21
== END ==
PROVIDERS: PCP Nurse Practitioner Family; Visit Provider Podiatrist
DX: Z98.890 Other specified postprocedural states (principal); M20.42 Other hammer toe(s) (acquired), left foot
CPT/HCPCS: 73630

== ENCOUNTER → 2020-06-13 14:50 | Outpatient (CLI) | payer OTHER, SELFPAY ==
[2020-06-13 18:06] LABS: Alanine Aminotransferase 16 U/L (12-78); Albumin Level 4.1 g/dl (3.5-5.0); Albumin/Globulin Ratio 1.5 (1.1-1.8); Alkaline Phosphatase 66 U/L (38-126); Anion Gap 12.1 mEq/L (5-15); Aspartate Amino Transferase 21 U/L (17-59); Bilirubin,Total 0.6 mg/dl (0.2-1.3); Blood Urea Nitrogen 12 mg/dl (9-20); Calcium 9.4 mg/dl (8.4-10.2); Carbon Dioxide 31 mmol/L (22.0-30.0); Chloride 102 mmol/L (98-107); Estimated Glomerular Filt Rate 126 ml/min (>60); GFR (African American) 153 ML/MIN (>60); Globulin 2.8 g/dL (1.3-3.2); Glucose 92 mg/dl (74-100); Potassium 4.1 mmoL/L (3.5-5.1); Sodium 141 mmol/L (136-145); Total Protein,Serum 6.9 g/dl (6.3-8.2)
[2020-06-13 18:35] LABS: Thyroid Stimulating Hormone 3.62 uIU/mL (0.465-4.68)
== END ==
PROVIDERS: Visit Provider Nurse Practitioner Family
DX: I10 Essential (primary) hypertension (principal); E03.9 Hypothyroidism, unspecified
CPT/HCPCS: 36415; 80053; 84443

== ENCOUNTER 2020-10-22 10:25 | Emergency (ER) | payer OTHER, SELFPAY ==
[2020-10-22 10:45] VITALS: BP 00/00; PULSE 0; RESP 0; TEMP -17.7; TEMP 0
== END 2020-10-22 10:46 | disposition left against medical advice (07) ==
LOC: UTC 10:28
PROVIDERS: Emergency Provider Nurse Practitioner Family; PCP Nurse Practitioner Family
DX: Z53.21 Procedure and treatment not carried out due to patient leaving prior to being seen by health care provider (principal)

== ENCOUNTER → 2020-10-22 10:53 | Outpatient (CLI) | payer OTHER, SELFPAY | PROVIDERS: PCP Nurse Practitioner Family; Visit Provider Nurse Practitioner Family | DX: Z03.818 Encounter for observation for suspected exposure to other biological agents ruled out (principal) | CPT/HCPCS: U0003 ==

== ENCOUNTER → 2020-11-30 19:00 | Outpatient (CLI) | payer OTHER, SELFPAY | PROVIDERS: Visit Provider Podiatrist | DX: B07.0 Plantar wart (principal) | CPT/HCPCS: 87070; 87186; 87205; 88305 ==

== ENCOUNTER → 2020-12-06 13:40 | Outpatient (CLI) | payer OTHER, SELFPAY ==
--- NOTE | 2020-12-06 13:41 | US_ITS ---
PROCEDURE: US EXTREMITY LT LIMITED CLINICAL INDICATION: evaluate for soft tissue mass or foreign body COMPARISON: No exams were available for comparison FINDINGS: Ultrasound performed of the palpable area in the posterior left foot. No abscess foreign body or mass apparent. IMPRESSION: No obvious mass foreign body or abscess. CT may provide further evaluation if symptoms persist Dictated by: Uday Olivarez MD 12/06/2020 15:59 Uday Olivarez MD in [place] 12/06/2020 15:59
== END ==
PROVIDERS: PCP Nurse Practitioner Family; Visit Provider Podiatrist
DX: M79.672 Pain in left foot (principal)
CPT/HCPCS: 76882

== ENCOUNTER → 2021-01-25 13:18 | Outpatient (CLI) | payer OTHER, SELFPAY ==
--- NOTE | 2021-01-25 13:22 | XR_ITS ---
PROCEDURE: XR FOOT WT BEARING RT 3V CLINICAL INDICATION: knot on foot COMPARISON: CR XR FOOT LT MIN 3V from 04/12/2020 CR XR FOOT WT BEARING LT 3V from 04/27/2020 CR XR FOOT WT BEARING LT 3V from 05/11/2020 CR XR FOOT WT BEARING LT 3V from 06/01/2020 FINDINGS: No fracture or dislocation. No lytic or blastic change. There is normal mineralization. The joint spaces are well-preserved. No significant degenerative/arthritic changes. No erosive changes evident. There is an area of exostosis along the posterior and superior aspect of the calcaneus anterior to the Achilles insertion consistent with a deformity. Kager's fat pad is preserved. IMPRESSION: Kathryn deformity of the calcaneus otherwise negative. Dictated by: Uday Olivarez MD 01/25/2021 16:41 Uday Olivarez MD in [place] 01/25/2021 16:41
== END ==
PROVIDERS: PCP Nurse Practitioner Family; Visit Provider Podiatrist
DX: M79.671 Pain in right foot (principal)
CPT/HCPCS: 73630

== ENCOUNTER 2021-07-07 23:57 | Emergency (ER) | payer OTHER, SELFPAY ==
[2021-07-07 23:58] VITALS: BP 147/93; PULSE 78; RESP 18; TEMP 36.7; O2SAT 99; BMI 29.7
--- NOTE | 2021-07-08 00:10 | HMH.EDGENADL ---
ED Disposition Clinical Impression: Tension headache, Cervical myofascial strain Disposition: Home, Self-Care Condition on Discharge: Good Additional Instructions: Medication as directed. return to the emergency room if new symptoms or worsening of symptoms. Follow-up with the primary care physician. Prescriptions: Meloxicam [Mobic 7.5mg Tab] 7.5 mg PO BID 10 Days #20 tab Transmission Status: Pending to [facility] Tizanidine HCl [Zanaflex 4mg tab] 4 mg PO BID PRN 7 Days #14 tab PRN Reason: Breakthru Severe Pain Transmission Status: Pending to [facility] Referrals: Jocelynn Thurston [Primary Care Provider] - - Critical Care Critical Care Time: No Attestation: On , the high probability of a clinically significant, sudden or life threatening deterioration of the following system(s) required my full and direct attention, intervention and personal management. The time I documented below is in addition to time spent performing reported procedures but includes the following listed in this critical care notation. Medical Decision Making - Medical Records MR Comment: strep test was negative. he was given toradol and zanaflex. - Stanton Inquiry Pt receiving controlled substance: No Stanton was queried for this patient: No Vital Signs: 07/07/21 23:58 Temperature 98.1 F Temperature Source Oral Pulse Rate [Right] 78 Respiratory Rate 18 Blood Pressure [Right Arm] 147/93 H Blood Pressure Mean [Right Arm] 111 02 Sat by Pulse Oximetry 99 - Lab Data Lab Results 07/08/21 00:30: Group A Strep Rapid Negative Orders (Tests/Meds): ED MEDICATIONS Discontinued Medications Generic Name Dose Route Start Last Admin Trade Name Freq PRN Reason Stop Dose Admin Ketorolac Tromethamine 30 mg 07/08/21 00:20 07/08/21 00:29 Ketorolac 30mg/Ml Vial IM 07/08/21 00:21 30 mg ONCE ONE Administration ORDERS Category Date Time Status Strep Screen Confirmation Stat Micro 07/08/21 00:30 Received General Adult HPI - General Chief complaint: PAIN Stated complaint: Pain in neck shooting up into skull Time Seen by Provider: 07/08/21 00:10 Mode of Arrival: Ambulatory Limitations: No Limitations Description of Symptoms (Recalled from ER Triage Doc. by RN): pt c/o stiff neck since marshal, yesterday started having pain shooting up the back of head. today pt feels like throat is swollen and sore - History of Present Illness HPI narrative: 40-year-old male he is complaining of stiffness and neck pain for the past 2 days now he has pain in the back of the head. He has no fever or chills. He has some soreness in the throat. Pain is exacerbated with movement. However he has full extension and flexion of the cervical spine. No radiation of the pain to l upper extremities. Change in sensation or muscle strength in lower extremities. No symptoms of radicular pain or radiculopathy - Related Data Previous Rx's Medication Instructions Recorded meloxicam 7.5 mg tablet 7.5 mg PO ONCE 30 Days #30 tab 01/25/21 methylprednisolone 4 mg tablets in 4 mg PO PER PKG DIR #21 tab 01/25/21 a dose pack Meloxicam [Mobic 7.5mg Tab] 7.5 mg PO BID 10 Days #20 tab 07/08/21 Tizanidine HCl [Zanaflex 4mg 4 mg PO BID PRN 7 Days #14 tab 07/08/21 tab] Allergies Allergy/AdvReac Type Severity Reaction Status Date / Time Penicillins Allergy Severe Anaphylaxis, Verified 01/25/21 14:02 and hives [facility] History - Hepatitis A Screen Drug use history?: No High risk sexual behaviors?: No History of sexually transmitted infection?: No Currently employed?: No Childcare worker?: No Do you have indoor plumbing?: Yes Do you have electricity?: Yes Attestation statement:: This patient has been screened for Hepatitis A risk factors. Medical History: Reports:: Gastroesophageal Reflux Disease(GERD), Hypertension, Kidney Stones, Ulcer Denies:: Cancer, Diabetes Mellitus Type 1, Diabetes M
[2021-07-08 00:44] LABS: Strep Scrn Group A (Rapid) Negative (Negative)
[2021-07-08 01:57] VITALS: BP 135/74; PULSE 72; RESP 18; TEMP 36.7; O2SAT 99
== END 2021-07-08 01:59 | disposition home or self-care (01) ==
PROVIDERS: Emergency Provider Internal Medicine; PCP Nurse Practitioner Family
DX: G44.209 Tension-type headache, unspecified, not intractable (principal); M79.18 Myalgia, other site; S16.1XXA Strain of muscle, fascia and tendon at neck level, initial encounter; K21.9 Gastro-esophageal reflux disease without esophagitis; I10 Essential (primary) hypertension; Z87.442 Personal history of urinary calculi; Z87.19 Personal history of other diseases of the digestive system; K50.90 Crohn's disease, unspecified, without complications; E66.9 Obesity, unspecified; Z72.0 Tobacco use; Z68.29 Body mass index [BMI] 29.0-29.9, adult; Z88.0 Allergy status to penicillin
CPT/HCPCS: 87430; 96372; 99283

== ENCOUNTER 2021-09-14 08:58 | Emergency (ER) | payer OTHER, SELFPAY ==
[2021-09-14 09:04] VITALS: BP 130/74; PULSE 72; RESP 16; TEMP 36.4; O2SAT 99; BMI 29.7
--- NOTE | 2021-09-14 09:18 | HMH.EDUTC ---
[facility] [place] Clinical Impression: Eye problem Disposition: Home, Self-Care Condition on Discharge: Good Additional Instructions: Go straight to [facility] upon leaving the [facility] Return if needed Straight to ER if any life threatening symptoms Referrals: Jocelynn Thurston [Primary Care Provider] - As needed [facility] [Other] Time of Disposition: 10:17 Medical Decision Making - Stanton Inquiry Pt receiving controlled substance: No Stanton was queried for this patient: No Vital Signs: 09/14/21 09:04 09/14/21 09:27 Temperature 97.6 F 97.6 F Temperature Source Temporal Artery Scan Pulse Rate 72 Pulse Rate [Left] 72 Respiratory Rate 16 16 Blood Pressure 130/74 Blood Pressure [Right Arm] 130/74 Blood Pressure Mean [Right Arm] 92 02 Sat by Pulse Oximetry 99 - Physician Consults Physician Consulted: [facility] Time: 10:10 Reason -: Opthalmology Eval/Care Comment/Response: Spoke with staff at [facility] and informed them of symptoms and they advised to have him come on to the clinic for examination and evaluation of eye problem [facility] [place]PI - General Stated complaint: lt eye burning/swollen Time Seen by Provider: 09/14/21 09:19 Mode of Arrival: Ambulatory Source of Information: Patient Limitations: No Limitations Description of Symptoms (Recalled from Triage Doc. by RN): pt states his left eye has been swollen and red for two weeks. the first few days there was minimal drainage and pt had a GILBERT. pt now c/o it feeling like sand in his eye and blurred vision. pt does not wear contacts or glasses. R 20/20. L 20/50 HEENT Symptoms (Recalled from RN notes): Yes (L eye swelling and pain) Resp Symptoms (Recalled from RN notes): No Skin Symptoms (Recalled from RN notes): No MS Symptoms (Recalled from RN notes): No Functional Status (Recalled from RN notes): na - History of Present Illness Provider Complaint: Patient states that he has been having eye problems for about 2 weeks States that he has been working on his house and unsure if he may have got something in it Patient states that he had a little nagging headache about 3 weeks ago and took some Tylenol for it and it went away, not sure if it is related but aobut a week later he started with some redness and drainage to the left eye, states he got some drops over the counter and the drianage stopped States that since then he has had some swelling on and off with redness and feeling like there is sand in his eye. States that at times the vision in the eye will get blurry and he can blink a couple of times and it is ok, Denies known injury denies known FB in his eye denies pain - Related Data Previous Rx's Medication Instructions Recorded meloxicam 7.5 mg tablet 7.5 mg PO ONCE 30 Days #30 tab 01/25/21 methylprednisolone 4 mg tablets in 4 mg PO PER PKG DIR #21 tab 01/25/21 a dose pack Meloxicam [Mobic 7.5mg Tab] 7.5 mg PO BID 10 Days #20 tab 07/08/21 Tizanidine HCl [Zanaflex 4mg 4 mg PO BID PRN 7 Days #14 tab 07/08/21 tab] Allergies Allergy/AdvReac Type Severity Reaction Status Date / Time Penicillins Allergy Severe Anaphylaxis, Verified 01/25/21 14:02 and hives - Worker's Comp Is this a Worker's Comp case?: No [facility] History - Hepatitis A Screen Drug use history?: No High risk sexual behaviors?: No History of sexually transmitted infection?: No Currently employed?: No Childcare worker?: No Do you have indoor plumbing?: Yes Do you have electricity?: Yes Attestation statement:: This patient has been screened for Hepatitis A risk factors. I have reviewed the patient's past medical history: Yes Medical History: Reports:: Gastroesophageal Reflux Disease(GERD), Hypertension, Kidney Stones, Ulcer Denies:: Cancer, Diabetes Mellitus Type 1, Diabetes Mellitus Type 2, Internal Pacemaker, MRSA, Seizures Other Medical History: Denies: Blood Transfusion Reaction Comment: Crohn's disease, obesity [place]
[2021-09-14 09:27] VITALS: BP 130/74; PULSE 72; RESP 16; TEMP 36.4
== END 2021-09-14 10:28 | disposition home or self-care (01) ==
PROVIDERS: Emergency Provider Nurse Practitioner; PCP Nurse Practitioner Family
DX: H10.32 Unspecified acute conjunctivitis, left eye (principal); K21.9 Gastro-esophageal reflux disease without esophagitis; I10 Essential (primary) hypertension; F17.210 Nicotine dependence, cigarettes, uncomplicated
CPT/HCPCS: 99202; G0463

== ENCOUNTER → 2022-03-07 15:23 | Outpatient (CLI) | payer OTHER, SELFPAY ==
--- NOTE | 2022-03-07 15:25 | XR_ITS ---
FINAL REPORT CLINICAL HISTORY: flank pain FINDINGS: A single view of the abdomen was obtained. There is a nonobstructive bowel gas pattern. A moderate amount of retained stool is noted in the colon. There are no abnormally dilated loops of small bowel. There are no abnormal calcifications. There are postoperative changes noted in the right abdomen. IMPRESSION: Nonobstructive bowel gas pattern with a moderate amount of retained stool. Reviewed, Interpreted and Dictated by Donato Bhagat III, MD Transcribed by Tammy Heck Authenticated by Donato Bhagat III, MD on 03/07/2022 04:58:34 PM [facility]
== END ==
PROVIDERS: PCP Nurse Practitioner Family; Visit Provider Urology
DX: M54.9 Dorsalgia, unspecified (principal)
CPT/HCPCS: 74018

== ENCOUNTER 2024-05-16 03:34 | Emergency (ER) | payer SELFPAY ==
[2024-05-16 03:35] VITALS: BP 136/88; PULSE 60; RESP 18; TEMP 36.6; O2SAT 100; BMI 33.2
--- NOTE | 2024-05-16 03:38 | CT_ITS ---
PROCEDURE INFORMATION: Exam: CT Abdomen And Pelvis Without Contrast Exam date and time: 05/16/2024 3:56 AM Age: 43 years old Clinical indication: Abdominal pain; Flank; Left; Additional info: Left flank pain HX stones TECHNIQUE: Imaging protocol: Computed tomography of the abdomen and pelvis without contrast. Radiation optimization: All CT scans at this facility use at least one of these dose optimization techniques: automated exposure control; mA and/or kV adjustment per patient size (includes targeted exams where dose is matched to clinical indication); or iterative reconstruction. COMPARISON: CR XR KUB 03/07/2022 3:38 PM FINDINGS: Liver: Normal. No mass. Gallbladder and biliary ducts: Cholecystectomy. Pancreas: Normal. No ductal dilation. Spleen: Normal. No splenomegaly. Adrenal glands: Normal. No mass. Kidneys and ureters: 5 mm stone in the mid left ureter with moderate left-sided hydronephrosis. Multiple small intrarenal stones are present bilaterally measuring up to 3 mm. Stomach and bowel: Prior gastric surgery. Appendix: No evidence of appendicitis. Intraperitoneal space: Unremarkable. No free air. No significant fluid collection. Vasculature: Unremarkable. No abdominal aortic aneurysm. Lymph nodes: Unremarkable. No enlarged lymph nodes. Urinary bladder: Unremarkable as visualized. Reproductive: Unremarkable as visualized. Bones/joints: Unremarkable. No acute fracture. Soft tissues: Unremarkable. IMPRESSION: 5 mm stone in the mid left ureter with moderate left-sided hydronephrosis. Multiple small intrarenal stones are present bilaterally measuring up to 3 mm.
--- NOTE | 2024-05-16 03:40 | ED_ITS ---
Discharge Plan Disposition Patient Disposition: Home, Self-Care Condition: Good Prescriptions Prescriptions: New tamsulosin 0.4 mg capsule 0.4 mg PO DAILY Qty: 30 0RF oxycodone 5 mg tablet 5 mg PO Q8H PRN (Reason: pain) Qty: 12 0RF ketorolac 10 mg tablet 10 mg PO Q8H PRN (Reason: pain) 4 Days Qty: 12 0RF ondansetron 4 mg tablet,disintegrating 4 mg PO Q8H PRN (Reason: nausea and vomiting) 4 Days Qty: 12 0RF No Action methylprednisolone [Medrol (Golden)] 4 mg tablets,dose pack 4 mg PO PER PKG DIR Qty: 21 0RF meloxicam 7.5 MG tablet 7.5 mg PO BID 10 Days Qty: 20 0RF tizanidine 4 MG tablet 4 mg PO BID PRN (Reason: Breakthru Severe Pain) 7 Days Qty: 14 0RF Referrals Follow up/Referrals: Jocelynn Thurston [Primary Care Provider] - See instructions Activity Restrictions/Add. Instructions Additional Instructions/Restrictions: You were evaluated in the emergency department today. Please follow-up closely with urology as well as your primary care provider. aging department supervisor your prescriptions and take as prescribed. Return to the emergency department for new or worsening symptoms, such as significant worsening of pain, fevers greater than 100.4 ?F, intractable nausea and vomiting, or other concerns. Clinical Impressions Clinical Impression: Hydronephrosis concurrent with and due to calculi of kidney and ureter Stand Alone Forms Stand Alone Forms: Work/School Release Instructions Patient Instructions: DI for Kidney Stones Discharge ED Provider: Kolton Newman General Adult HPI <Kolton Newman MD - Last Filed: 05/16/24 07:00> General Chief complaint: Abdominal Pain Stated complaint: abd pain, left side back pain, freq urination Time Seen by Provider: 05/16/24 03:36 History of Present Illness HPI narrative: 43-year-old male with history of kidney stones that have required surgical intervention in the past presents with acute onset left lower quadrant and flank pain that he reports is very consistent with his prior episodes. Reports that it started this evening and has been worsening. Denies any urinary symptoms, denies any fevers chills or systemic symptoms. Related Data Previous Rx's Medication Instructions Recorded methylprednisolone 4 mg tablets in 4 mg PO PER PKG DIR #21 tabs 01/25/21 a dose pack (Medrol (Golden)) meloxicam 7.5 mg tablet 7.5 mg PO BID 10 days #20 tabs 07/08/21 tizanidine 4 mg tablet 4 mg PO BID PRN Breakthru Severe 07/08/21 Pain 7 days #14 tabs ketorolac 10 mg tablet 10 mg PO Q8H PRN pain 4 days #12 05/16/24 tabs ondansetron 4 mg disintegrating 4 mg PO Q8H PRN nausea and 05/16/24 tablet vomiting 4 days #12 tabs oxycodone 5 mg tablet 5 mg PO Q8H PRN pain #12 tabs 05/16/24 tamsulosin 0.4 mg capsule 0.4 mg PO DAILY #30 caps 05/16/24 Allergies Allergy/AdvReac Type Severity Reaction Status Date / Time Penicillins Allergy Severe Anaphylaxis, Verified 03/07/22 14:59 and hives PFS <Kolton Newman MD - Last Filed: 05/16/24 07:00> [facility] Disclaimer: The information contained in this section may have been updated after the patient was seen, as this information can be updated by other users. Medical History (Updated 05/16/24 @ 06:44 by Kolton Newman MD) Tobacco abuse Abnormal EKG HTN (hypertension) SOB (shortness of breath) Chest pain Pre-op evaluation Social History Smoking Status: Current every day smoker tobacco type: cigarettes packs per day: 1 second hand exposure: Yes alcohol intake: never substance use type: denies use current occupational status: employed Travel in the last 8 weeks: None household members: family housing: house current occupation: [employer] current occupational exposures/hazards: No caffeine: Yes <Kolton Newman MD - Last Filed: 05/16/24 07:00> ROS Obtained: Yes All systems reviewed & no additional complaints except as documented Physical Exam <Kolton Newman MD - Last Filed: 05/16/24 07:00> General General appearance: alert and in distress Head Head exam: atraumatic and normocephalic Eye Eye exam: Present normal appearance, PERRL and EOMI ENT ENT exam: Present normal oropharynx and normal external ear exam Neck Neck exam: Present normal inspection and full ROM Chest Chest inspection: Present normal inspection and symmetric chest wall rise; Absent tenderness Respiratory Respiratory exam: Present normal lung sounds bilaterally; Absent respiratory distress Cardiovascular Cardiovascular exam: Present regular rate and normal rhythm Abdominal Exam Abdominal exam: Present soft; Absent distention, tenderness or guarding Extremities Exam Extremities exam: Present normal inspection; Absent edema or joint swelling Back Exam Back exam: Present normal inspection, tenderness and CVA tenderness (L) Neurological Exam Neurological exam: Present alert and oriented X3; Absent motor sensory deficit Psychiatric Psychiatric exam: Present normal affect and normal mood Skin Skin exam: Present warm, dry and normal color Lymphatic Lymphatic Findings: no adenopathy Medical Decision Making <Kolton Newman MD - Last Filed: 05/16/24 07:00> Medical Records Medical records reviewed: Yes I reviewed the patient's medical records. Stanton Inquiry Pt receiving controlled substance: No Stanton was queried for this patient: No Vital Signs: 05/16/24 03:35 05/16/24 05:30 05/16/24 07:25 Temperature 97.9 F 97.7 F Temperature Source Oral Oral Pulse Rate 71 75 Pulse Rate [Left Radial] 60 Respiratory Rate 18 17 Blood Pressure 106/59 L 96/53 L Blood Pressure [Right Arm] 136/88 Blood Pressure Mean 67 Blood Pressure Mean [Right Arm] 104 Blood Pressure Source Automatic Cuff Blood Pressure Source [Right Arm] Automatic Cuff Blood Pressure Position [Right Arm] Sitting 02 Sat by Pulse Oximetry 100 97 Oxygen Delivery Method Room Air Room Air Lab Data Lab results reviewed: Yes I reviewed the patient's lab results. Lab Results 05/16/24 03:43: WBC 10.2, RBC 5.56, Hgb 17.4, Hct 53.2 H, MCV 95.8 H, MCH 31.3 H , MCHC 32.7, RDW 14.0, Plt Count 197, MPV 7.7, Neut % (Auto) 67.9, Lymph % (Auto) 22.8, [place] % (Auto) 5.1, Eos % (Auto) 3.3, Baso % (Auto) 0.8, Neut # (Auto) 6.9, Lymph # (Auto) 2.3, [place] # (Auto) 0.5, Eos # (Auto) 0.3, Baso # (Auto) 0.1, Sodium 144, Potassium 4.0, Chloride 103, Carbon Dioxide 33 H, Anion Gap 12.0, BUN 14, Creatinine 1.10, Estimated Creat Clear 138, Estimated GFR 73, Est GFR ( Amer) 89, Glucose 142 H, Calcium 9.5, Total Bilirubin 0.5, AST 25, ALT 21, Alkaline Phosphatase 62, Total Protein 7.7, Albumin 4.2, Globulin 3.5 H, Albumin/Globulin Ratio 1.2 05/16/24 04:20: Urine Color Yellow, Urine Appearance Clear, Urine pH 6.0, Ur Specific Staples >= 1.030, Urine Protein 1+, Urine Glucose (UA) Negative, Urine Ketones Negative, Urine Blood 3+, Urine Nitrate Negative, Urine Bilirubin Negative, Urine Urobilinogen 0.2, Ur Leukocyte Esterase Negative, Urine RBC 5- 10, Urine WBC 5-10, Ur Squamous Epith Cells 3-5, Calcium Oxalate Crystal Trace, Urine Bacteria Trace, Hyaline Casts Occasional, Urine Mucus 1+, Urine Sperm Occ 05/16/24 03:43 05/16/24 03:43 Orders (Tests/Meds): ED MEDICATIONS Discontinued Medications Generic Name Dose Route Start Last Admin Trade Name Raulq PRN Reason Stop Dose Admin Acetaminophen 1,000 mg 05/16/24 03:38 05/16/24 03:52 Acetaminophen 500mg Tab PO 05/16/24 03:39 1,000 mg ONCE ONE Administration Ketorolac Tromethamine 30 mg 05/16/24 03:38 05/16/24 03:52 Ketorolac 30mg/Ml Vial IV 05/16/24 03:39 30 mg ONCE ONE Administration Morphine Sulfate 4 mg 05/16/24 03:38 05/16/24 03:53 Morphine 4mg/Ml Syringe IV 05/16/24 03:39 4 mg ONCE ONE Administration Morphine Sulfate 4 mg 05/16/24 06:54 05/16/24 06:56 Morphine 4mg/Ml Syringe IV 05/16/24 06:55 4 mg ONCE ONE Administration Ondansetron HCl 4 mg 05/16/24 03:38 05/16/24 03:52 Ondansetron 4mg/2ml Vial IV 05/16/24 03:39 4 mg ONCE ONE Administration Oxycodone HCl 5 mg 05/16/24 05:06 05/16/24 05:11 Oxycodone 5mg Immediate Release Tablet PO 05/16/24 05:07 5 mg ONCE ONE Administration Tamsulosin HCl 0.4 mg 05/16/24 21:00 05/16/24 05:11 Tamsulosin 0.4mg Capsule PO 06/15/24 20:59 0.4 mg HS FRANCES Administration ORDERS Category Date Time Status CT abdomen pelvis wo con Stat Cat Scan 05/16/24 03:38 Completed CBC w/Auto Diff [Complete Blood Count Auto Diff] Stat Lab 05/16/24 03:43 Completed CMP [Comprehensive Metabolic Panel] Stat Lab 05/16/24 03:43 Completed UA [Urinalysis and Microscopic] Stat Lab 05/16/24 04:20 Completed Medical Decision Narrative: 43-year-old male with history of prior kidney stones presents with acute onset left lower quadrant/left flank pain concerning for kidney stone.. History was obtained via interactive discussion with patient, chart review. On arrival, patient is [afebrile, hemodynamically stable, satting appropriately, alert, oriented x4, GCS 15], moving all extremities spontaneously. Full physical exam performed and significant for left CVA tenderness. Differential includes but is not limited to pyelonephritis, ureterolithiasis, colitis,. Patient was given IV Toradol, p.o. Tylenol, IV morphine, IV Zofran, 1 L fluid bolus for symptomatic management and correction of underlying abnormalities. Workup initiated including CBC CMP UA CT abdomen and pelvis without contrast.. On re-evaluation, patient [remains afebrile, HD stable.] Given an additional 5 of oxycodone for pain control. Laboratory workup independently interpreted by me and significant for no significant electrolyte derangement, no leukocytosis. Urine has 5-10 RBCs, 5-10 WBCs, 3-5 squames, trace bacteria, mucus, sperm. I do not believe that this urinalysis is consistent with an acute infection at this time. Imaging independently interpreted by me and significant for 5 mm stone in the mid left ureter with moderate left-sided hydronephrosis. See radiology read for full review of final results. Given patient history, exam and workup, patient's presentation most likely represents left obstructive ureterolithiasis. Interact discussion of patient regarding his presentation. Patient given additional morphine, patient handed off to oncoming physician pending pain control and decision on discharge versus transfer. <Jeanne Alcaraz, DO - Last Filed: 05/16/24 08:06> Vital Signs: 05/16/24 03:35 05/16/24 05:30 05/16/24 07:25 Temperature 97.9 F 97.7 F Temperature Source Oral Oral Pulse Rate 71 75 Pulse Rate [Left Radial] 60 Respiratory Rate 18 17 Blood Pressure 106/59 L 96/53 L Blood Pressure [Right Arm] 136/88 Blood Pressure Mean 67 Blood Pressure Mean [Right Arm] 104 Blood Pressure Source Automatic Cuff Blood Pressure Source [Right Arm] Automatic Cuff Blood Pressure Position [Right Arm] Sitting 02 Sat by Pulse Oximetry 100 97 Oxygen Delivery Method Room Air Room Air Lab Data Lab Results 05/16/24 03:43: WBC 10.2, RBC 5.56, Hgb 17.4, Hct 53.2 H, MCV 95.8 H, MCH 31.3 H , MCHC 32.7, RDW 14.0, Plt Count 197, MPV 7.7, Neut % (Auto) 67.9, Lymph % (Auto) 22.8, [place] % (Auto) 5.1, Eos % (Auto) 3.3, Baso % (Auto) 0.8, Neut # (Auto) 6.9, Lymph # (Auto) 2.3, [place] # (Auto) 0.5, Eos # (Auto) 0.3, Baso # (Auto) 0.1, Sodium 144, Potassium 4.0, Chloride 103, Carbon Dioxide 33 H, Anion Gap 12.0, BUN 14, Creatinine 1.10, Estimated Creat Clear 138, Estimated GFR 73, Est GFR ( Amer) 89, Glucose 142 H, Calcium 9.5, Total Bilirubin 0.5, AST 25, ALT 21, Alkaline Phosphatase 62, Total Protein 7.7, Albumin 4.2, Globulin 3.5 H, Albumin/Globulin Ratio 1.2 05/16/24 04:20: Urine Color Yellow, Urine Appearance Clear, Urine pH 6.0, Ur Specific Staples >= 1.030, Urine Protein 1+, Urine Glucose (UA) Negative, Urine Ketones Negative, Urine Blood 3+, Urine Nitrate Negative, Urine Bilirubin Negative, Urine Urobilinogen 0.2, Ur Leukocyte Esterase Negative, Urine RBC 5- 10, Urine WBC 5-10, Ur Squamous Epith Cells 3-5, Calcium Oxalate Crystal Trace, Urine Bacteria Trace, Hyaline Casts Occasional, Urine Mucus 1+, Urine Sperm Occ Orders (Tests/Meds): ED MEDICATIONS Discontinued Medications Generic Name Dose Route Start Last Admin Trade Name Teri PRN Reason Stop Dose Admin Acetaminophen 1,000 mg 05/16/24 03:38 05/16/24 03:52 Acetaminophen 500mg Tab PO 05/16/24 03:39 1,000 mg ONCE ONE Administration Ketorolac Tromethamine 30 mg 05/16/24 03:38 05/16/24 03:52 Ketorolac 30mg/Ml Vial IV 05/16/24 03:39 30 mg ONCE ONE Administration Morphine Sulfate 4 mg 05/16/24 03:38 05/16/24 03:53 Morphine 4mg/Ml Syringe IV 05/16/24 03:39 4 mg ONCE ONE Administration Morphine Sulfate 4 mg 05/16/24 06:54 05/16/24 06:56 Morphine 4mg/Ml Syringe IV 05/16/24 06:55 4 mg ONCE ONE Administration Ondansetron HCl 4 mg 05/16/24 03:38 05/16/24 03:52 Ondansetron 4mg/2ml Vial IV 05/16/24 03:39 4 mg ONCE ONE Administration Oxycodone HCl 5 mg 05/16/24 05:06 05/16/24 05:11 Oxycodone 5mg Immediate Release Tablet PO 05/16/24 05:07 5 mg ONCE ONE Administration Tamsulosin HCl 0.4 mg 05/16/24 21:00 05/16/24 05:11 Tamsulosin 0.4mg Capsule PO 06/15/24 20:59 0.4 mg HS [facility] Administration ORDERS Category Date Time Status CT abdomen pelvis wo con Stat Cat Scan 05/16/24 03:38 Completed CBC w/Auto Diff [Complete Blood Count Auto Diff] Stat Lab 05/16/24 03:43 Completed CMP [Comprehensive Metabolic Panel] Stat Lab 05/16/24 03:43 Completed UA [Urinalysis and Microscopic] Stat Lab 05/16/24 04:20 Completed Medical Decision Narrative: 43-year-old male with history of prior kidney stones presents with acute onset left lower quadrant/left flank pain concerning for kidney stone.. History was obtained via interactive discussion with patient, chart review. On arrival, patient is [afebrile, hemodynamically stable, satting appropriately, alert, oriented x4, GCS 15], moving all extremities spontaneously. Full physical exam performed and significant for left CVA tenderness. Differential includes but is not limited to pyelonephritis, ureterolithiasis, colitis,. Patient was given IV Toradol, p.o. Tylenol, IV morphine, IV Zofran, 1 L fluid bolus for symptomatic management and correction of underlying abnormalities. Workup initiated including CBC CMP UA CT abdomen and pelvis without contrast.. On re-evaluation, patient [remains afebrile, HD stable.] Given an additional 5 of oxycodone for pain control. Laboratory workup independently interpreted by me and significant for no significant electrolyte derangement, no leukocytosis. Urine has 5-10 RBCs, 5-10 WBCs, 3-5 squames, trace bacteria, mucus, sperm. I do not believe that this urinalysis is consistent with an acute infection at this time. Imaging independently interpreted by me and significant for 5 mm stone in the mid left ureter with moderate left-sided hydronephrosis. See radiology read for full review of final results. Given patient history, exam and workup, patient's presentation most likely represents left obstructive ureterolithiasis. Interact discussion of patient regarding his presentation. Patient given additional morphine, patient handed off to oncoming physician pending pain control and decision on discharge versus transfer. Kieran DO: I assumed care of the patient at 7 AM. On my assessment, he is resting comfortably and states his pain is improved. He wants to try going home. Given this, he was discharged home with prescription for oxycodone, Toradol, Zofran, and Flomax. He was given instructions for expectant management, supportive management, and outpatient follow-up. He was given very strict return precautions. He was discharged after all questions were answered. Procedures <Kolton Newman MD - Last Filed: 05/16/24 07:00> Risk/Benefits of Procedure(s) Were Explained: Yes Critical Care <Kolton Newman MD - Last Filed: 05/16/24 07:00> Critical Care Time Critical Care Time: No
[2024-05-16 03:51] LABS: Basophils # 0.1 K/mm3 (0-0.2); Basophils % 0.8 % (0.1-2.0); Eosinophils # 0.3 K/mm3 (0.0-0.4); Eosinophils % 3.3 % (0.1-12.0); Hematocrit 53.2 % (42.0-52.0); Hemoglobin 17.4 g/dL (14.1-18.0); Lymphocytes # 2.3 K/mm3 (0.7-4.5); Lymphocytes % 22.8 % (10-50); Mean Corpuscular HGB Conc 32.7 g/dL (31.8-35.4); Mean Corpuscular Hemoglobin 31.3 pg (27.0-31.2); Mean Corpuscular Volume 95.8 fl (80-94); Mean Platelet Volume 7.7 fl (7.4-10.4); Monocytes # 0.5 K/mm3 (0.1-1.0); Monocytes % 5.1 % (1.7-9.3); Neutrophils # 6.9 K/mm3 (1.8-7.8); Neutrophils % 67.9 % (37.0-80.0); Platelet Count 197 K/mm3 (142-424); Red Blood Count 5.56 M/mm3 (4.60-6.20); White Blood Count 10.2 K/mm3 (4.8-10.8)
[2024-05-16] MEDS: KETOROLAC 30MG/ML VIAL 30 MG IV (03:52)
[2024-05-16] MEDS: ACETAMINOPHEN 500MG TAB 1000 MG PO (03:52)
[2024-05-16] MEDS: ONDANSETRON 4MG/2ML VIAL 4 MG IV (03:52)
[2024-05-16] MEDS: MORPHINE 4MG/ML SYRINGE 4 MG IV ×2 (03:53→06:56)
[2024-05-16 04:21] LABS: Alanine Aminotransferase 21 U/L (12-78); Albumin Level 4.2 g/dl (3.5-5.0); Albumin/Globulin Ratio 1.2 (1.1-1.8); Alkaline Phosphatase 62 U/L (38-126); Aspartate Amino Transferase 25 U/L (17-59); Bilirubin,Total 0.5 mg/dl (0.2-1.3); Blood Urea Nitrogen 14 mg/dl (9-20); Calcium 9.5 mg/dl (8.4-10.2); Carbon Dioxide 33 mmol/L (22.0-30.0); Chloride 103 mmol/L (98-107); Creatinine Clearance Estimated 138 mL/min (50-200); Estimated Glomerular Filt Rate 73 ml/min (>60); GFR (African American) 89 ML/MIN (>60); Globulin 3.5 g/dL (1.3-3.2); Glucose 142 mg/dl (74-100); Sodium 144 mmol/L (136-145); Total Protein,Serum 7.7 g/dl (6.3-8.2)
[2024-05-16 04:24] LABS: Microscopic, Urine URINE MICROSCOPIC (MICROSCOPIC)
[2024-05-16 04:26] LABS: Appearance,Urine CLEAR (Clear); Bilirubin,Urine Negative (Negative); Blood, Urine 3+ (Negative); Color,Urine YELLOW (Yellow); Glucose,Urine (UA) Negative (Negative); Ketones,Urine Negative (Negative); Leukocyte Esterase,Urine Negative (Negative); Nitrate,Urine Negative (Negative); Protein,Urine 1+ (Negative); Specific Gravity, Urine >= 1.030 (1.005-1.030); Urobilinogen,Urine 0.2 EU/dl (0.2)
--- NOTE | 2024-05-16 04:28 | PC.NURSE ---
Rounded on patient. Patient laying left lateral at this time. Reports pain improved to 6/10 at this time. No further needs expressed at this time.
[2024-05-16 04:58] LABS: Bacteria,Urine Trace /lpf; Mucus,Urine 1+ /lpf; Sperm,Urine OCC /lpf
[2024-05-16 04:59] LABS: Calcium Oxalate Crystals,Urine Trace /lpf; Hyaline Casts,Urine Occasional #/lpf (0)
--- NOTE | 2024-05-16 05:04 | PC.NURSE ---
rounded on patient, patient given blanket and pillow, states pain is starting to come back, RN notified
[2024-05-16] MEDS: OXYCODONE 5MG IMMEDIATE RELEASE TABLET 5 MG PO (05:11)
[2024-05-16] MEDS: TAMSULOSIN 0.4MG CAPSULE 0.4 MG PO (05:11)
[2024-05-16 05:30] VITALS: BP 106/59; PULSE 71; O2SAT 97
[2024-05-16 07:25] VITALS: BP 96/53; PULSE 75; RESP 17; TEMP 36.5; O2SAT 98
== END 2024-05-16 07:38 | disposition home or self-care (01) ==
PROVIDERS: Emergency Provider Emergency Medicine; PCP Nurse Practitioner Family
DX: N13.2 Hydronephrosis with renal and ureteral calculous obstruction (principal); R10.32 Left lower quadrant pain; M54.59 Other low back pain; F17.210 Nicotine dependence, cigarettes, uncomplicated; I10 Essential (primary) hypertension
CPT/HCPCS: 74176; 80053; 81001; 85025; 96374; 96375; 96376; 99285; J1885; J2270; J2405

== ENCOUNTER 2024-11-17 13:13 | Emergency (ER) | payer OTHER, SELFPAY ==
[2024-11-17] VITALS (11 sets, daily range): BP systolic 90–126; BP diastolic 44–79; PULSE 77–106; RESP 18–20; TEMP 36.6–36.9; O2SAT 93–99; BMI 32.5
--- NOTE | 2024-11-17 13:16 | ECG_ITS ---
APPROVED REPORT Exam: Resting ECG HR:97 bpm ECG Measurements Heart Rate 97 AXES CA 155 P 73 QRSd 93 QRS 43 QT 309 T 46 QTc 363 Conclusion SINUS RHYTHM NORMAL ECG UNCONFIRMED REPORT Electronically signed by : VAISHALI TORRES, 11/19/2024 06:52:10
--- NOTE | 2024-11-17 13:31 | PC.NURSE ---
DR BOWER AT BEDSIDE
--- NOTE | 2024-11-17 13:38 | ED_ITS ---
Discharge Plan Disposition Patient Disposition: Home, Self-Care Prescriptions Prescriptions: New prednisone 20 mg tablet 40 mg PO DAILY 5 Days Qty: 10 0RF doxycycline monohydrate 100 mg capsule 100 mg PO BID 5 Days Qty: 10 0RF No Action methylprednisolone [Medrol (Golden)] 4 mg tablets,dose pack 4 mg PO PER PKG DIR Qty: 21 0RF tamsulosin 0.4 mg capsule 0.4 mg PO DAILY Qty: 30 0RF oxycodone 5 mg tablet 5 mg PO Q8H PRN (Reason: pain) Qty: 12 0RF ketorolac 10 mg tablet 10 mg PO Q8H PRN (Reason: pain) 4 Days Qty: 12 0RF ondansetron 4 mg tablet,disintegrating 4 mg PO Q8H PRN (Reason: nausea and vomiting) 4 Days Qty: 12 0RF meloxicam 7.5 MG tablet 7.5 mg PO BID 10 Days Qty: 20 0RF tizanidine 4 MG tablet 4 mg PO BID PRN (Reason: Breakthru Severe Pain) 7 Days Qty: 14 0RF Referrals Follow up/Referrals: Provider,Referral, MD [Referring] - See instructions Activity Restrictions/Add. Instructions Additional Instructions/Restrictions: Call your family doctor to establish care for this visit to the emergency department and schedule follow-up within 48 hours to ensure improvement. If you have any worsening of your condition or any other concerning signs or symptoms, return to the emergency department or your primary care doctor for further evaluation. Steroid each morning for the next 5 days, antibiotic twice daily for the next 5 days. Clinical Impressions Clinical Impression: Chest pain, Atypical pneumonia Print Language Print Language: German Discharge ED Provider: Kavon Deal HPI <Yaakov Chacon MD - Last Filed: 11/17/24 16:14> General Chief Complaint: Chest Pain Stated Complaint: cp Time Seen by Provider: 11/17/24 13:20 Mode of Arrival: Ambulatory Source of Information: Patient Limitations: No Limitations Description of Symptoms (Recalled from ER Triage Doc. by RN): chest pain. woke him up this morning. got sweaty dizzy nauseous History of Present Illness HPI narrative: Patient is a 44-year-old male with no chronic comorbidities who presents emergency department for evaluation of chest pain. Onset was acute, woke him up this morning. When the chest pain happens he gets sweaty. He has had a subacute cough and multiple sick contacts at school. There is also associated nonbloody vomiting and diarrhea. He is a smoker. Past surgical history of previous cholecystectomy. Due to persistent chest pain which waxes and wanes in intensity presents here for continued evaluation. Chest pain is substernal, does not radiate through to his back. He has a slight cough however it is not as bad as it has been in recent weeks as he had a perceiving respiratory infection that is largely resolved. Related Data Previous Rx's ?Medication ?Instructions ?Recorded methylprednisolone 4 mg tablets in 4 mg PO PER PKG DIR #21 tabs 01/25/21 a dose pack (Medrol (Golden)) meloxicam 7.5 mg tablet 7.5 mg PO BID 10 days #20 tabs 07/08/21 tizanidine 4 mg tablet 4 mg PO BID PRN Breakthru Severe 07/08/21 Pain 7 days #14 tabs ketorolac 10 mg tablet 10 mg PO Q8H PRN pain 4 days #12 05/16/24 tabs ondansetron 4 mg disintegrating 4 mg PO Q8H PRN nausea and 05/16/24 tablet vomiting 4 days #12 tabs oxycodone 5 mg tablet 5 mg PO Q8H PRN pain #12 tabs 05/16/24 tamsulosin 0.4 mg capsule 0.4 mg PO DAILY #30 caps 05/16/24 doxycycline monohydrate 100 mg 100 mg PO BID 5 days #10 caps 11/17/24 capsule prednisone 20 mg tablet 40 mg (2 x 20 mg) PO DAILY 5 days 11/17/24 #10 tabs Allergies Allergy/AdvReac Type Severity Reaction Status Date / Time Penicillins Allergy Severe Anaphylaxis, Verified 03/07/22 14:59 and hives PFS <Yaakov Chacon MD - Last Filed: 11/17/24 16:14> [facility] Disclaimer: The information contained in this section may have been updated after the patient was seen, as this information can be updated by other users. Medical History (Updated 11/17/24 @ 17:13 by Kavon Deal MD) Tobacco abuse Abnormal EKG HTN (hypertension) SOB (shortness of breath) Chest pain Pre-op evaluation Social History Smoking Status: Current every day smoker tobacco type: cigarettes packs per day: 1 second hand exposure: Yes alcohol intake: never substance use type: denies use current occupational status: employed Travel in the last 8 weeks: None household members: family housing: house current occupation: [employer] current occupational exposures/hazards: No caffeine: Yes Have you lived/traveled outside US in past 30 days?: No Contact w/someone who lives/traveled outside US past 30 days?: No Exposure to someone with infectious disease in past 14 days?: No Do you have a fever (greater than 100.4 F or 38 C)?: No Have you tested positive for COVID-19: No Exposed to someone with COVID-19 in past 14 days?: No Do you have a sore throat?: No Do you have a cough?: No Do you have any weakness?: No Do you have any diarrhea?: No Are you experiencing any unusual bleeding?: No Do you have any muscle aches/pain?: No Do you have any abdominal pain?: No Are you experiencing loss of taste or smell?: No Other Medical History Have you received the Flu Vaccine for this season: No Have you received the Pneumonia Vaccine: No <Yaakov Chacon MD - Last Filed: 11/17/24 16:14> ROS Obtained: Yes Systems reviewed as appropriate & no additional complaints except as documented Physical Exam <Yaakov Chacon MD - Last Filed: 11/17/24 16:14> General General appearance: alert and in no apparent distress Head Head exam: atraumatic and normocephalic Eye Eye exam: Present PERRL ENT ENT exam: Present mucous membranes moist Neck Neck exam: Present normal inspection Chest Chest inspection: Present normal inspection and symmetric chest wall rise Respiratory Respiratory exam: Present normal lung sounds bilaterally; Absent respiratory distress Cardiovascular Cardiovascular exam: Present regular rate and normal rhythm Abdominal Exam Abdominal exam: Present soft; Absent tenderness, guarding or rebound Extremities Exam Extremities exam: Present normal inspection Neurological Exam Neurological exam: Present alert Psychiatric Psychiatric exam: Present normal affect Skin Skin exam: Present warm and dry HEART Score <Yaakov Chacon MD - Last Filed: 11/17/24 16:14> HEART Score HEART Score assessment performed?: Yes History (anamnesis): Moderately suspicious ECG: Normal Age: <45 years Risk factors: 1-2 risk factors Troponin: </= normal limit HEART Score: 2 <Kavon Deal MD - Last Filed: 11/17/24 17:13> HEART Score HEART Score: 2 Critical Care <Yaakov Chacon MD - Last Filed: 11/17/24 16:14> Critical Care Time Critical Care Time: No Medical Decision Making <Yaakov Chacon MD - Last Filed: 11/17/24 16:14> [place] Inquiry Pt receiving controlled substance: No Vital Signs Vital Signs: 11/17/24 13:14 11/17/24 13:18 11/17/24 13:31 Temperature 98.4 F Temperature Source Oral Pulse Rate 106 H 102 H Pulse Rate [Right] 99 H Respiratory Rate 20 Blood Pressure 118/79 126/75 Blood Pressure [Right Arm] 118/79 Blood Pressure Mean [Right Arm] 92 02 Sat by Pulse Oximetry 97 97 94 L Oxygen Delivery Method Room Air Room Air Room Air 11/17/24 14:01 11/17/24 14:31 11/17/24 15:00 Temperature Temperature Source Pulse Rate 96 H 85 77 Pulse Rate [Right] Respiratory Rate Blood Pressure 121/71 90/44 L 103/52 L Blood Pressure [Right Arm] Blood Pressure Mean [Right Arm] 02 Sat by Pulse Oximetry 96 96 97 Oxygen Delivery Method Room Air Room Air Room Air 11/17/24 15:31 11/17/24 16:01 11/17/24 16:31 Temperature Temperature Source Pulse Rate 87 77 104 H Pulse Rate [Right] Respiratory Rate Blood Pressure 122/71 96/50 L 126/76 Blood Pressure [Right Arm] Blood Pressure Mean [Right Arm] 02 Sat by Pulse Oximetry 93 L 96 94 L Oxygen Delivery Method Room Air Room Air Room Air Lab Data Labs: Lab Results 11/17/24 13:20: WBC 16.3 H, RBC 6.12, Hgb 19.1 H, Hct 55.0 H, MCV 89.9, MCH 31.5 H, MCHC 35.1, RDW 13.0, Plt Count 252, MPV 9.8, Neut % (Auto) 85.6 H, Lymph % (Auto) 6.6 L, Kleberg % (Auto) 4.0, Eos % (Auto) 2.7, Baso % (Auto) 0.7, Neut # (Auto) 13.9 H, Lymph # (Auto) 1.1, Kleberg # (Auto) 0.7, Eos # (Auto) 0.4, Baso # (Auto) 0.1, Total Counted 100, Neutrophils % (Manual) 88 H, Lymphocytes % (Manual) 7 L, Monocytes % (Manual) 3, Eosinophils % (Manual) 2, Platelet Estimate Normal, RBC Morphology Normal, D-Dimer 0.68 H, Sodium 140, Potassium 4.5, Chloride 103, Carbon Dioxide 32 H, Anion Gap 9.5, BUN 16, Creatinine 1.00, Estimated Creat Clear 147, Estimated GFR 82, Est GFR ( Amer) 99, Glucose 114 H, Calcium 9.8, Total Bilirubin 0.9, AST 43, ALT 35, Alkaline Phosphatase 84, Troponin I < 0.01, Total Protein 7.9, Albumin 4.6, Globulin 3.3 H, Albumin/Globulin Ratio 1.4, Lipase 35, HIV Ag/Ab Combo Qual Negative 11/17/24 13:49: SARS-CoV-2 (PCR) Not detected, Influenza A Untype (PCR) Not detected, Influenza Type B (PCR) Not detected 11/17/24 16:21: Troponin I < 0.01 11/17/24 13:20 11/17/24 13:20 Response Orders (Tests/Meds): ED MEDICATIONS Discontinued Medications Generic Name Dose Route Start Last Admin Trade Name Raulq PRN Reason Stop Dose Admin Acetaminophen 1,000 mg 11/17/24 13:36 11/17/24 13:44 Acetaminophen 1,000mg/100ml Vial IV 11/17/24 13:37 1,000 mg ONCE ONE Administration Aspirin 324 mg 11/17/24 13:36 11/17/24 13:44 Aspirin 81mg Chewable Tablet PO 11/17/24 13:37 324 mg ONCE ONE Administration Belladonna Alkaloids 60 ml 11/17/24 13:36 11/17/24 13:44 Belladonna Alkaloids 60 Ml Ml PO 11/17/24 13:37 60 ml ONCE ONE Administration Dexamethasone 10 mg 11/17/24 16:03 11/17/24 16:09 Dexamethasone 4mg Tablet PO 11/17/24 16:04 10 mg ONCE ONE Administration Doxycycline Hyclate 100 mg 11/17/24 16:02 11/17/24 16:09 Doxycycline Hycl 100 Mg Tablet PO 11/17/24 16:03 100 mg ONCE ONE Administration Lactated Ringer's 1,000 mls @ 999 mls/hr 11/17/24 13:43 11/17/24 13:56 Lactated Ringer's 1000 Ml Bag IV 11/17/24 14:43 999 mls/hr .Q1H1M ONE Administration Ondansetron HCl 4 mg 11/17/24 13:39 11/17/24 13:44 Ondansetron 4mg/2ml Vial IV 11/17/24 13:40 4 mg ONCE ONE Administration ORDERS Category Date Time Status CXR 2 view (NOT portable) [XR chest 2V] Stat Exams 11/17/24 13:38 Completed CBC w/Auto Diff [Complete Blood Count Auto Diff] Stat Lab 11/17/24 13:20 Completed CMP [Comprehensive Metabolic Panel] Stat Lab 11/17/24 13:20 Completed D-Dimer Stat Lab 11/17/24 13:20 Completed HIV Combo Stat Lab 11/17/24 13:20 Completed Hep C Ab with Reflex to RNA Stat Lab 11/17/24 13:20 Received Lipase Stat Lab 11/17/24 13:20 Completed Rapid PCR Covid and Flu A/B Stat Lab 11/17/24 13:49 Completed Trop I [Troponin I] Stat Lab 11/17/24 13:20 Completed Troponin I Q3H Lab 11/17/24 16:21 Completed Troponin I Q3H Lab 11/17/24 21:30 Ordered ECG Data Tracing #1: ECG Narrative: Independently inter by me rate is 97, rhythm is regular, axis is normal, no ST elevation in anatomical contiguous leads, QTc 363 MDM Narrative Medical Decision Narrative: In summary patient is 44-year-old male past medical history described above who presents to the emergency department for evaluation of chest pain, vomiting, diarrhea patient is hemodynamically stable and nontoxic-appearing upon arrival, afebrile. Differential includes ACS, pulmonary embolism, viral syndrome, among others. Workup will initially be conducted with hematologic labs, two-view chest x-ray, EKG, troponin. Pulmonary embolism risk will be assessed with D- dimer. Initial inventions include crystalloid bolus, GI cocktail, Tylenol, Zofran. Initial workup reviewed by me, leukocytosis of 16.3, D-dimer 0.68 initial troponin pending. Viral swab negative. Chest x-ray informally interpreted by me, no dense lobar consolidation. D-dimer 0.68 pulmonary embolism excluded per years criteria. Patient's chest pain is anterior and does not radiate through to his back and has other symptoms consistent with viral syndrome as well as no significant hypertension so I do not think that patient has aortic dissection that would need to be ruled out at this time. Serial troponins repeat evaluation pending at time of transfer care to the oncoming physician, Dr. Deal. <Kavon Deal MD - Last Filed: 11/17/24 17:13> Vital Signs Vital Signs: 11/17/24 13:14 11/17/24 13:18 11/17/24 13:31 Temperature 98.4 F Temperature Source Oral Pulse Rate 106 H 102 H Pulse Rate [Right] 99 H Respiratory Rate 20 Blood Pressure 118/79 126/75 Blood Pressure [Right Arm] 118/79 Blood Pressure Mean [Right Arm] 92 02 Sat by Pulse Oximetry 97 97 94 L Oxygen Delivery Method Room Air Room Air Room Air 11/17/24 14:01 11/17/24 14:31 11/17/24 15:00 Temperature Temperature Source Pulse Rate 96 H 85 77 Pulse Rate [Right] Respiratory Rate Blood Pressure 121/71 90/44 L 103/52 L Blood Pressure [Right Arm] Blood Pressure Mean [Right Arm] 02 Sat by Pulse Oximetry 96 96 97 Oxygen Delivery Method Room Air Room Air Room Air 11/17/24 15:31 11/17/24 16:01 11/17/24 16:31 Temperature Temperature Source Pulse Rate 87 77 104 H Pulse Rate [Right] Respiratory Rate Blood Pressure 122/71 96/50 L 126/76 Blood Pressure [Right Arm] Blood Pressure Mean [Right Arm] 02 Sat by Pulse Oximetry 93 L 96 94 L Oxygen Delivery Method Room Air Room Air Room Air Lab Data Labs: Lab Results 11/17/24 13:20: WBC 16.3 H, RBC 6.12, Hgb 19.1 H, Hct 55.0 H, MCV 89.9, MCH 31.5 H, MCHC 35.1, RDW 13.0, Plt Count 252, MPV 9.8, Neut % (Auto) 85.6 H, Lymph % (Auto) 6.6 L, Kleberg % (Auto) 4.0, Eos % (Auto) 2.7, Baso % (Auto) 0.7, Neut # (Auto) 13.9 H, Lymph # (Auto) 1.1, Kleberg # (Auto) 0.7, Eos # (Auto) 0.4, Baso # (Auto) 0.1, Total Counted 100, Neutrophils % (Manual) 88 H, Lymphocytes % (Manual) 7 L, Monocytes % (Manual) 3, Eosinophils % (Manual) 2, Platelet Estimate Normal, RBC Morphology Normal, D-Dimer 0.68 H, Sodium 140, Potassium 4.5, Chloride 103, Carbon Dioxide 32 H, Anion Gap 9.5, BUN 16, Creatinine 1.00, Estimated Creat Clear 147, Estimated GFR 82, Est GFR ( Amer) 99, Glucose 114 H, Calcium 9.8, Total Bilirubin 0.9, AST 43, ALT 35, Alkaline Phosphatase 84, Troponin I < 0.01, Total Protein 7.9, Albumin 4.6, Globulin 3.3 H, Albumin/Globulin Ratio 1.4, Lipase 35, HIV Ag/Ab Combo Qual Negative 11/17/24 13:49: SARS-CoV-2 (PCR) Not detected, Influenza A Untype (PCR) Not detected, Influenza Type B (PCR) Not detected 11/17/24 16:21: Troponin I < 0.01 Response Orders (Tests/Meds): ED MEDICATIONS Discontinued Medications Generic Name Dose Route Start Last Admin Trade Name Freq PRN Reason Stop Dose Admin Acetaminophen 1,000 mg 11/17/24 13:36 11/17/24 13:44 Acetaminophen 1,000mg/100ml Vial IV 11/17/24 13:37 1,000 mg ONCE ONE Administration Aspirin 324 mg 11/17/24 13:36 11/17/24 13:44 Aspirin 81mg Chewable Tablet PO 11/17/24 13:37 324 mg ONCE ONE Administration Belladonna Alkaloids 60 ml 11/17/24 13:36 11/17/24 13:44 Belladonna Alkaloids 60 Ml Ml PO 11/17/24 13:37 60 ml ONCE ONE Administration Dexamethasone 10 mg 11/17/24 16:03 11/17/24 16:09 Dexamethasone 4mg Tablet PO 11/17/24 16:04 10 mg ONCE ONE Administration Doxycycline Hyclate 100 mg 11/17/24 16:02 11/17/24 16:09 Doxycycline Hycl 100 Mg Tablet PO 11/17/24 16:03 100 mg ONCE ONE Administration Lactated Ringer's 1,000 mls @ 999 mls/hr 11/17/24 13:43 11/17/24 13:56 Lactated Ringer's 1000 Ml Bag IV 11/17/24 14:43 999 mls/hr .Q1H1M ONE Administration Ondansetron HCl 4 mg 11/17/24 13:39 11/17/24 13:44 Ondansetron 4mg/2ml Vial IV 11/17/24 13:40 4 mg ONCE ONE Administration ORDERS Category Date Time Status CXR 2 view (NOT portable) [XR chest 2V] Stat Exams 11/17/24 13:38 Completed CBC w/Auto Diff [Complete Blood Count Auto Diff] Stat Lab 11/17/24 13:20 Completed CMP [Comprehensive Metabolic Panel] Stat Lab 11/17/24 13:20 Completed D-Dimer Stat Lab 11/17/24 13:20 Completed HIV Combo Stat Lab 11/17/24 13:20 Completed Hep C Ab with Reflex to RNA Stat Lab 11/17/24 13:20 Received Lipase Stat Lab 11/17/24 13:20 Completed Rapid PCR Covid and Flu A/B Stat Lab 11/17/24 13:49 Completed Trop I [Troponin I] Stat Lab 11/17/24 13:20 Completed Troponin I Q3H Lab 11/17/24 16:21 Completed Troponin I Q3H Lab 11/17/24 21:30 Ordered MDM Narrative Medical Decision Narrative: In summary patient is 44-year-old male past medical history described above who presents to the emergency department for evaluation of chest pain, vomiting, diarrhea patient is hemodynamically stable and nontoxic-appearing upon arrival, afebrile. Differential includes ACS, pulmonary embolism, viral syndrome, among others. Workup will initially be conducted with hematologic labs, two-view chest x-ray, EKG, troponin. Pulmonary embolism risk will be assessed with D- dimer. Initial inventions include crystalloid bolus, GI cocktail, Tylenol, Zofran. Initial workup reviewed by me, leukocytosis of 16.3, D-dimer 0.68 initial troponin pending. Viral swab negative. Chest x-ray informally interpreted by me, no dense lobar consolidation. D-dimer 0.68 pulmonary embolism excluded per years criteria. Patient's chest pain is anterior and does not radiate through to his back and has other symptoms consistent with viral syndrome as well as no significant hypertension so I do not think that patient has aortic dissection that would need to be ruled out at this time. Serial troponins repeat evaluation pending at time of transfer care to the oncoming physician, Dr. Deal. Say: I assumed primary responsibility for this patient after signout from previous physician. On my evaluation, patient no acute distress. Oxygen in the mid to low 90s. Patient given doxycycline and Decadron based on chest x-ray with interstitial inflammatory appearance. Independent interpretation of workup with leukocytosis. Patient has dimer is elevated, but years negative. Troponin negative and delta troponin negative. Lipase negative, viral swab negative. I feel this is consistent with exacerbation of undiagnosed underlying COPD with significant smoking history versus reactive airway disease and interstitial pneumonia. Patient given Decadron and doxycycline for home-going. Because patient at baseline without signs or symptoms of clinical decompensation, deemed appropriate for discharge. Results were relayed to patient who voiced understanding and were agreeable to outpatient management and follow up. I discussed my clinical impression with patient and answered all questions. At this time, the evidence for any other entities in the differential is insufficient to warrant any further testing or ED observation. This was explained as well. Advisory was given that persistent or worsening symptoms require further evaluation. I confirmed the understanding of this discussion.
--- NOTE | 2024-11-17 13:38 | XR_ITS ---
PROCEDURE INFORMATION: Exam: XR Chest Exam date and time: 11/17/2024 2:33 PM Age: 44 years old Clinical indication: Pain; Chest pressure; Additional info: Cp, subacute cough TECHNIQUE: Imaging protocol: Radiologic exam of the chest. Views: 2 views. COMPARISON: CR XR CHEST 2V 05/29/2020 8:48 PM FINDINGS: Lungs: Unremarkable. No consolidation. Pleural spaces: Unremarkable. No pleural effusion. No pneumothorax. Heart/Mediastinum: Unremarkable. No cardiomegaly. Bones/joints: Unremarkable. IMPRESSION: No acute findings.
[2024-11-17] MEDS: BELLADONNA ALKALOIDS 60 ML ML PO (13:44)
[2024-11-17] MEDS: ONDANSETRON 4MG/2ML VIAL 4 MG IV (13:44)
[2024-11-17] MEDS: ASPIRIN 81MG CHEWABLE TABLET 324 MG PO (13:44)
[2024-11-17] MEDS: ACETAMINOPHEN 1,000MG/100ML VIAL 1000 MG IV (13:44)
[2024-11-17 13:50] LABS: Alanine Aminotransferase 35 U/L (12-78); Albumin Level 4.6 g/dl (3.5-5.0); Albumin/Globulin Ratio 1.4 (1.1-1.8); Alkaline Phosphatase 84 U/L (38-126); Anion Gap 9.5 mEq/L (5-15); Aspartate Amino Transferase 43 U/L (17-59); Bilirubin,Total 0.9 mg/dl (0.2-1.3); Blood Urea Nitrogen 16 mg/dl (9-20); Calcium 9.8 mg/dl (8.4-10.2); Carbon Dioxide 32 mmol/L (22.0-30.0); Chloride 103 mmol/L (98-107); Creatinine Clearance Estimated 147 mL/min (50-200); Estimated Glomerular Filt Rate 82 ml/min (>60); GFR (African American) 99 ML/MIN (>60); Globulin 3.3 g/dL (1.3-3.2); Glucose 114 mg/dl (74-100); Lipase 35 U/L (23-300); Potassium 4.5 mmoL/L (3.5-5.1); Sodium 140 mmol/L (136-145); Total Protein,Serum 7.9 g/dl (6.3-8.2)
[2024-11-17 13:52] LABS: Basophils # 0.1 K/mm3 (0-0.2); Basophils % 0.7 % (0.1-2.0); Eosinophils # 0.4 K/mm3 (0.0-0.4); Eosinophils % 2.7 % (0.1-12.0); Lymphocytes # 1.1 K/mm3 (0.7-4.5); Lymphocytes % 6.6 % (10-50); Mean Corpuscular HGB Conc 35.1 g/dL (31.8-35.4); Mean Corpuscular Hemoglobin 31.5 pg (27.0-31.2); Mean Corpuscular Volume 89.9 fl (80-94); Mean Platelet Volume 9.8 fl (7.4-10.4); Monocytes # 0.7 K/mm3 (0.1-1.0); Neutrophils # 13.9 K/mm3 (1.8-7.8); Neutrophils % 85.6 % (37.0-80.0); Platelet Count 252 K/mm3 (142-424); Red Blood Count 6.12 M/mm3 (4.60-6.20); White Blood Count 16.3 K/mm3 (4.8-10.8)
[2024-11-17 13:53] LABS: Coronavirus 19, PCR Not Detected (NotDetected); Influenza A, PCR Not Detected (NotDetected); Influenza B, PCR Not Detected (NotDetected)
[2024-11-17 13:55] LABS: MANUAL DIFFERENTIAL MANUAL DIFFERENTIAL (MANUAL DIFF)
[2024-11-17] MEDS: LACTATED RINGERS 1000ML 1,000 ML 999 ML IV (13:56)
[2024-11-17 14:04] LABS: Eosinophils % 2 % (0-3); Lymphocytes % 7 % (10-50); Monocytes % 3 % (2-9); Neutrophils % 88 % (42-76); Platelet Estimate Normal; RBC Morphology Normal; Total Cells Counted 100
[2024-11-17 14:37] LABS: D-Dimer 0.68 ug/mL (0.0-0.5)
[2024-11-17 14:49] LABS: Hemoglobin 19.1 g/dL (14.1-18.0)
[2024-11-17 15:06] LABS: HIV Combo NEGATIVE (Negative)
[2024-11-17 15:44] LABS: Troponin I < 0.01 ng/ml (0.00-0.034)
[2024-11-17] MEDS: DEXAMETHASONE 4MG TABLET 10 MG PO (16:09)
[2024-11-17] MEDS: DOXYCYCLINE HYCL 100 MG TABLET PO (16:09)
--- NOTE | 2024-11-17 16:31 | PC.NURSE ---
ROUNDED ON PT NO NEEDS AT THIS TIME CALL LIGHT IN REACH
[2024-11-17 17:00] LABS: Troponin I < 0.01 ng/ml (0.00-0.034)
[2024-11-19 06:18] LABS: HCV Ab Non Reactive (Non Reactive)
== END 2024-11-17 17:19 | disposition home or self-care (01) ==
PROVIDERS: Emergency Medicine; Emergency Provider Emergency Medicine; PCP Nurse Practitioner Family
DX: J18.9 Pneumonia, unspecified organism (principal); R07.9 Chest pain, unspecified; R42 Dizziness and giddiness; R11.2 Nausea with vomiting, unspecified; R61 Generalized hyperhidrosis; R05.9 Cough, unspecified; R19.7 Diarrhea, unspecified
CPT/HCPCS: 71046; 80053; 83690; 84484; 85007; 85025; 85027; 85378; 86803; 87389; 87636; 93005; 96361; 96374; 96375; 99284; J0131; J2405; J7120; J8540

== ENCOUNTER 2025-10-14 18:16 | Emergency (ER) | payer OTHER, SELFPAY ==
--- OUTSIDE RECORDS SUMMARY | 2025-08-25 12:45 | XMS_ITS | Encounter Summary ---
Author Organization [facility] Address [address] [place] [address] Care Team Providers Care Humanities Instructor Name Role Phone Karena Jocelynn Cheryl MCBRIDE Primary Care Provider + [phone] Encounter Details Date Type Department Care Team (Late st Contact Info) Description 08/25/2025 1:45 PM EDT Office Visit [facility] [address] [place] [address] Bala Washburn MD [address] [address] Herpes keratitis (Primary Dx) Social History Tobacco Use Types Packs/Day Years Used Date Smoking Tobacco: Every Day Cigarettes 1 20 Passive Smoke Exposure: Never Smokeless Tobacco: Never Sex and Gender Information Value Date Recorded Sex Assigned at Not on file Legal Sex Male 7:29 PM EDT Gender Identity Not on file Sexual Orientation Not on file documented as of this encounter Miscellaneous Notes * Progress Notes - Migel Cruz MD - 08/25/2025 1:45 PM EDT Images from the original note were not included. Hx of poss fiberglass insulation in L eye 4yo, removed after 3 weeks. Was told there was herpes virus. - did well for 1yr. - had flare approx 1yr later. Tx w/ Steroid and improved. - 9ma awoke w/ blurred vision - using valtrex 500mg daily, prednisolone bid left eye (OS) w/ gradual improvement, went down to once daily last visit - Mrx to 20/20 last visit and gave new glasses. 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 Appears inactive. As above 3. Irreg astimatism left eye (OS). Poss scleral fit contact lens (CL) in future. Check K sensation at next visit. Fu 3-4 weeks. 06/20/2025: 07/21/25: 07/21 - stable - using valtrex 500 daily - using PF daily slightly more prominent vessels. Increase to BID - Trial of scleral lens w/ Dr. Dunn - fu 4-6 weeks. 08/25 - stable w/o change, no epi defect, vessels similar compared to prior exam - favor viral etiology - no ac rxn. - Significant headache not responsive to OTC tylenol, however no AC inflamamtion, and IOP reasonable - using valtrex 500 daily - continue - using PF BID- decrase to daily x 2 weeks, then every other day - Trial of scleral lens w/ Dr. Dunn - end august Fu 2-3 months. - mild IOP elev w/ squeezing and steroid not in right, nonsusp ON. Observe. documented in this encounter Plan of Treatment Upcoming Encounters Date Type Department Care Team (Late st Contact Info) Description 11/28/2025 11:15 AM EST Office Visit [facility] [address] [place] [address] Bala Washburn MD [address] [phone] documented as of this encounter Visit Diagnoses Diagnosis Herpes keratitis- Primary Herpes simplex disciform keratitis documented in this encounter Additional Health Concerns Assessment Noted Time A Body Mass Index follow-up plan has been documented for the patient 08/25/2025 2:27 PM EDT documented as of this encounter Care Teams Humanities Instructor Relationship Specialty Start Date End Date Jocelynn Thurston APRN [address] [place] [address] PCP - General 06/19/25 documented as of this encounter
[2025-10-14 18:25] VITALS: BP 172/101; PULSE 72; RESP 16; TEMP 36.6; O2SAT 100; BMI 32.5
--- OUTSIDE RECORDS SUMMARY | 2025-10-14 18:26 | XMS_ITS | Clinical Summary ---
[facility] Address [address] [place] [id number] Care Team Providers Care Buzzsaw Operator Name Role Phone Nyasia Yadav Primary Care Provider [phone] Allergies Active Allergy Reactions Criticality Noted Date Comments Penicillins 12/18/2016 Medications lisinopril-hydro chlorothiazide (PRINZIDE,ZESTOR ETIC) 10-12.5 MG per tablet Take 1 tablet by mouth Daily. Active escitalopram (LEXAPRO) 20 MG tablet Take 20 mg by mouth Daily. Active levothyroxine (SYNTHROID, LEVOTHROID) 25 MCG tablet Take 25 mcg by mouth Daily. Active busPIRone (BUSPAR) 5 MG tablet Take 5 mg by mouth 3 (Three) Times a Day. Active Social History Tobacco Use Types Packs/Day Years Used Date Smoking Tobacco: Every Day Cigarettes 2 15 Abuse Screen Answer Date Recorded Unsafe at Home or Work/School Not on file Feels Threatened by Someone? Not on file 09/2023 Does Anyone Keep You from Co ntacting Others or Doint Things Outside the Home? Not on file 08/27/2023 Physical Sign of Abuse Present Not on file 1 Housing Stability Answer Date Recorded Current Living Arrangements Not on file 08/17 Potentially Unsafe Housing Conditions Not on owen e 08/27/2023 Family and Community Support Answer Hermes e Recorded Help with Day-to-Day Activities Not on file 08/27/2023 Lonely or Isolated Not on file 08/27/2023 Employment Answer Date Recorded Do you want help finding or keeping work or a ruel b? Not on file 08/27/2023 Disabilities Answer Date Recorded Concentrating, Remembering, or Making Decisions Difficulty Not on file 08/27/2023 Doing Errands Independently Difficulty Not on fi le 08/27/2023 Education Answer Date Recorded Help with school or training? Not on file Preferred Language Not on file 08/27/2023 Sex and Gender Information Value Date Recorded Sex Assigned at Not on file Legal Sex Male 8:46 AM EST Gender Identity Not on file Sexual Orientation Not on file Last Filed Vital Signs Vital Sign Reading Time Taken Comments Blood Pressure - - Pulse - - Temperature - - Respiratory Rate - - Oxygen Saturation - - Inhaled Oxygen Concentration - - Weight 151 kg (333 lb) 12/18/2016 9:02 AM EST Height 185.4 cm (6' 1 ) 12/18/2016 9:02 AM EST Body Mass Index 43.93 12/18/2016 9:02 AM EST Plan of Treatment Health Maintenance Due Date Last Done Comments ANNUAL PHYSICAL 1981 HEPATITIS C SCREENING 1981 TDAP/TD VACCINES (1 - Tdap) 2000 INFLUENZA VACCINE 06/17/2025 Pneumococcal Vaccine 0-49 Aged Out No longer eligible based on patient's age to complete this topic Insurance [employer] Care Teams Buzzsaw Operator Relationship Specialty Start Date End Date Nyasia Yadav PA PCP - General Physician Damage Assessor 12/16/16
--- OUTSIDE RECORDS SUMMARY | 2025-10-14 18:26 | XMS_ITS | Continuity of Care Document ---
Author Organization [facility], [facility] Address [address] [place] [address] Assessment No assessment recorded. Plan of Treatment Reminders Order Date Submit Date Provider Last Modified By Organization Details Last Modified Time Details Appointments CDL PHYSICAL 2024 02:00P M Rafaela Thurston APRN Not available Not available Not available Lab None recorded. Referral None recorded. Procedures None recorded. Surgeries None recorded. Imaging None recorded. Medication Orders albuterol sulfate HFA 90 mcg/actua tion aerosol inhaler 2024 025 [facility], [address] [place] [address], [id number], 08/17/2025 16:42:27 prednison e 20 mg tablet 2024 025 [facility], [address] [place] [address], [id number], 08/29/2025 05:02:42 azithromy kala 250 mg tablet 2024 025 [facility], [address] [place] [address], [id number], 08/17/2025 16:42:27 benzonata te 200 mg capsule 2024 025 [facility], [address] [place] [address], [id number], 08/17/2025 16:42:26 Patient TargetsNo targets recorded. Patient InstructionsNo instructions recorded. Reason for Referral None Reported. Problems Name Problem SNOMED Code Status Onset Date Resolution Date Notes Provider Name and Address Organization Details Recorded Time Acute sinusiti s [id number] Completed 201709/21/2018 Problem Code: J01.90; Problem Code Type: ICD-10; Not Available [facility] 2 21:23:57 Acute bronchit is 17193368 Completed 201711/06/2018 Problem Code: J20.9; Problem Code Type: ICD-10; Jocelynn Thurston APRN [address] [place] [address], [phone] , [employer] 5 09:17:09 Generali zed anxiety disorder 19503759 Active 2017 Problem Code: F41.1; Problem Code Type: ICD-10; Not Available [facility] 2 21:23:56 Hyperten sive disorder 92053679 Active 2017 Problem Code: I10; Problem Code Type: ICD-10; Not Available [facility] 2 21:23:56 Acute bronchit is 66173819 Completed 201801/19/2019 Problem Code: J20.9; Problem Code Type: ICD-10; Jocelynn Thurston APRN [address] [place] [address], [address] , [employer] 5 09:17:09 Severe obesity 91234646873 104 Completed 201811/29/2019 Problem Code: E66.01; Problem Code Type: ICD-10; Not Available [facility] 2 21:23:56 Finding of body mass index 292127921 Active 2018 Problem Code: Z68.41; Problem Code Type: ICD-10; Not Available [facility] 2 21:23:59 Dietary manageme nt surveill ance Completed 201811/29/2019 Jocelynn Thurston APRN [address] [place] [address], [phone] , [employer] 4 14:20:47 Nicotine dependen ce in [facility] n 974217739 Completed 201811/25/2022 Problem Code: F17.201; Problem Code Type: ICD-10; LINDA OSORIO null, [employer] 3 11:54:03 Pain in right lower limb 891171042 Completed 201806/23/2019 Not Available [facility] 2 21:23:57 Cellulit is of right lower limb 57047986076 217120 Completed 201811/25/2022 Problem Code: L03.115; Problem Code Type: ICD-10; LINDA CARRILLOR null, [employer] 3 11:54:03 Hypothyr oidism 72134769 Active 2018 Not Available [facility] 2 21:23:56 Puncture wound of foot 72147510 Completed 201811/25/2022 Problem Code: S91.331A ; Problem Code Type: ICD-10; LINDA CARRILLOR null, [employer] 3 11:54:03 Influenz a vaccine needed 49572387558 06 Completed 201811/25/2022 Problem Code: Z23; Problem Code Type: ICD-10; LINDA CARRILLOR null, [employer] 3 11:54:03 Influenz a vaccine needed 17715640987 06 Completed 201811/29/2019 Problem Code: Z23; Problem Code Type: ICD-10; LINDA CARRILLOR null, [employer] 3 11:54:03 General examinat ion of patient Active 2019 Not Available [facility] 2 21:23:57 Body mass index 30+ - obesity 872416792 Completed 201906/13/2020 Problem Code: Z68.38; Problem Code Type: ICD-10; Jocelynn Thurston, REED [address] [place] [address], [phone] , [employer] 5 13:14:10 Pre-surg teddy evaluati on Completed 201912/18/2021 Not Available [facility] 2 21:23:57 Body mass index 30+ - obesity 547132765 Active 2019 Problem Code: Z68.31; Problem Code Type: ICD-10; Jocelynn Thurston APRN [address] [place], [address] , [employer] 5 13:14:09 Influenz a vaccine needed 17196649826 06 Completed 201912/18/2021 Problem Code: Z23; Problem Code Type: ICD-10; LINDA chen, [employer] 3 11:54:03 Vitamin D deficien cy 36108881 Active 2020 Problem Code: E55.9; Problem Code Type: ICD-10; Not Available [facility] 2 21:23:56 Tobacco dependen ce caused by cigarett es 26940492313 506879 Active 2020 Problem Code: F17.210; Problem Code Type: ICD-10; Not Available [facility] 2 21:23:56 Mixed hyperlip idemia 949161880 Active 2021 Problem Code: E78.2; Problem Code Type: ICD-10; Not Available [facility] 2 21:23:56 Acute bronchit is 36868127 Active 2024 Problem Code: J20.9; Problem Code Type: ICD-10; Jocelynn Thurston APRN [address] [place], [address] , [employer] 5 09:17:09 Notes:*Problem Name: Encount er for general adult medical examination *ICD-10 Codes: Z00.00 *Problem Status: Chronic *Comments: [id number]: 'Z00.0'; *Problem Code: Z00.0 *Problem Code Type: ICD-10 *Note Date: 06/06/2021 Problem Notes None recorded. Procedures Surgical History Date Name Laterality Status Provider Name and Address Organization Details Recorded Time 11/17/19 ureteroscopy and electrohydraulic lithotripsy of calculus of ureter completed Jocelynn Thurston APRN [address] [place], [address], [employer] 08/20/2024 14:28:24 laparoscopic sleeve gastrectomy completed Jocelynn Thurston APRN [address] [place], [address], [employer] 08/20/2024 13:59:24 Imaging Results None recorded. Procedure Notes None recorded. Medical Equipment None Reported. Allergies Allergen ID Allergen Name Allergen Category Reaction Reaction Severity Criticality Documentation Date Start Date Code Code System Note Provider Name and Address Organization Details Recorded Time 12093 Product containin g penicilli n (product) medicatio n Not available Not available Not available 07/23/2022 26596 8001 SNOMED Aller gyCod e: ''; Aller gyNam e: 'Peni cilli ns'; Aller gyCon ceptT ype: ''; Not Available [facility] 22:55:08 Medications Name Sig Start Date Stop Date Status Note LastModified by Organization Details LastModified Time quetiapine 25 mg tablet TAKE ONE TABLET BY MOUTH DAILY NEEDED FOR insomnia 2024 active Not Available Not Available Not Avai lable potassium chloride ER 10 mEq capsule,ext ended release TAKE 1 CAPSULE BY MOUTH ONCE DAILY 11/29 completed Not Available Not Available Not Available paroxetine 10 mg tablet 1 tab po q hs 11/20 completed Not Available Not Available Not Available lisinopril 20 mg-hydrochl orothiazide 12.5 mg tablet TAKE 1 TABLET BY MOUTH ONCE DAILY 06/13 completed Not Available Not Available Not Available azithromyci n 250 mg tablet TAKE 2 TABLETS BY MOUTH ON DAY 1, THEN TAKE 1 TABLET DAILY ON DAYS 2-5 active Not Available Not Available No t Available alprazolam 1 mg tablet Patient only take PRN, at onset of anxiety attack 10/22 completed Not Available Not Available Not Available ofloxacin 0.3 % eye drops INSTILL 1 DROP INTO LEFT EYE THREE TIMES DAILY FOR 5 DAYS 08/20 completed Not Available Not Available Not Available benzonatate 200 mg capsule TAKE 1 CAPSULE BY MOUTH 3 TIMES DAILY NEEDED FOR cough active Not Available Not Available No t Available lisinopril 20 mg tablet Take 1 tablet by mouth daily 11/20 completed Not Available Not Available Not Available prednisone 20 mg tablet Take 2 tablets every day by oral route with meal(s) for 5 days. 08/29 completed Not Available Not Available Not Available valacyclovi r 500 mg tablet TAKE 1 TABLET BY MOUTH EVERY DAY active Not Available Not Available No t Available spironolact one 25 mg tablet TAKE 1 TABLET BY MOUTH ONCE DAILY 11/29 completed Not Available Not Available Not Available ketorolac 10 mg tablet TAKE 1 TABLET BY MOUTH EVERY 8 HOURS NEEDED FOR PAIN FOR 4 DAYS 08/20 completed Not Available Not Available Not Available cyclopentol ate 1 % eye drops INSTILL 1 DROP INTO LEFT EYE EVERY 12 HOURS FOR 7 DAYS 08/20 completed Not Available Not Available Not Available levothyroxi ne 100 mcg tablet Take 1 tablet(s) by mouth daily 11/29 completed Not Available Not Available Not Available Tessalon Perles 100 mg capsule one pill every 8 hours as needed for cough 12/10 completed Not Available Not Available Not Available prednisolon e acetate 1 % eye drops,suspe nsion Administe r 1 drop into the left eye daily. active Not Available Not Available No t Available tamsulosin 0.4 mg capsule TAKE 1 CAPSULE BY MOUTH ONCE DAILY 08/20 completed Not Available Not Available Not Available potassium citrate ER 10 mEq (1,080 mg) tablet,exte nded release Take 1 tablet by mouth every day, for Kidney stone preventio n. active Not Available Not Available No t Available doxycycline monohydrate 100 mg capsule TAKE ONE CAPSULE BY MOUTH TWICE DAILY FOR 5 DAYS 08/28 completed Not Available Not Available Not Available levothyroxi ne 50 mcg tablet TAKE 1 TABLET BY MOUTH ONCE DAILY IN THE MORNING ON AN EMPTY STOMACH 30 MINUTES BEFORE BREAKFAST 11/25 completed Not Available Not Available Not Available paroxetine 20 mg tablet TAKE 1 TABLET BY MOUTH EVERY DAY AT BEDTIME 11/29 completed Not Available Not Available Not Available buspirone 10 mg tablet Take 1 tab by mouth every 8 hours prn anxiety 11/20 completed Not Available Not Available Not Available furosemide 20 mg tablet 1 tablet by mouth daily as needed for swelling 03/30 completed Not Available Not Available Not Available ergocalcife rol (vitamin D2) 1,250 mcg (50,000 unit) capsule TAKE 1 CAPSULE BY MOUTH ONCE A WEEK 11/25 completed Not Available Not Available Not Available [place] 5 mg-325 mg tablet As needed 10/22 completed Not Available Not Available Not Available ondansetron 4 mg disintegrat ing tablet DISSOLVE 1 TABLET IN MOUTH EVERY 8 HOURS NEEDED FOR NAUSEA AND VOMITING FOR 4 DAYS 08/20 completed Not Available Not Available Not Available cefdinir 300 mg capsule TAKE ONE CAPSULE BY MOUTH TWICE DAILY 08/20 completed Not Available Not Available Not Available Ventolin HFA 90 mcg/actuati on aerosol inhaler inahle 1-2 puffs every 4-6 hours as needed for cough or wheeze. active Not Available Not Available No t Available buspirone 15 mg tablet TAKE 1 TABLET BY MOUTH TWICE DAILY 11/29 completed Not Available Not Available Not Available tobramycin 0.3 %-dexametha sone 0.1 % eye drops,suspe nsion INSTILL 1 DROP INTO EACH EYE 4 TIMES DAILY FOR 5 DAYS 08/20 completed Not Available Not Available Not Available oxycodone 5 mg tablet TAKE 1 TABLET BY MOUTH EVERY 8 HOURS NEEDED FOR PAIN 08/20 completed Not Available Not Available Not Available Bactrim DS 800 mg-160 mg tablet Take 1 tablet(s) by mouth q12h for 10 days 04/26 completed Not Available Not Available Not Available Lexapro 20 mg tablet Take 1 tablet(s) by mouth daily 10/22 completed Not Available Not Available Not Available rosuvastati n 10 mg tablet TAKE ONE TABLET BY MOUTH EVERY DAY FOR cholester ol 2024 active Not Available Not Available Not Avai lable Boostrix Tdap 2.5 Lf unit-8 mcg-5 Lf/0.5 mL intramuscul ar syringe inject 0.5 millilite r by intramusc ular route once 07/12 completed Not Available Not Available Not Available Seroquel 50 mg tablet Take 0.5-1 tab PO QHS PRN for sleep 11/29 completed Not Available Not Available Not Available Havrix (PF) 1,440 JAIRON unit/mL intramuscul ar syringe Administe r 1 ml IM once. 07/12 completed Not Available Not Available Not Available diflupredna te 0.05 % eye drops INSTILL 1 DROP INTO LEFT EYE 4 TIMES DAILY FOR 7 DAYS 08/20 completed Not Available Not Available Not Available Seroquel XR 50 mg tablet,exte nded release Take 1 tablet at bedtime 10/22 completed Not Available Not Available Not Available Breo Ellipta 100 mcg-25 mcg/dose powder for inhalation Take 1 inhalatio n(s) by mouth daily 08/30 completed Not Available Not Available Not Available Fluzone Quad 60 mcg (15 mcg x 4)/0.5 mL intramuscul ar susp. inject 0.5 millilite r (60 mcg) by intramusc ular route once 11/29 completed Not Available Not Available Not Available Vitals Date Recorded Body height Body mass index (BMI) Body weight Body temperature Heart rate Oxygen saturation Systolic And Diastolic Systolic And Diastolic Systolic And Diastolic Provider Name and Address Organization Details Last Updated DateTime 5 180.34 cm 39.1 kg/m2 098049. 58 g 98.1 [degF] 81 /min 92 % 154/81 mm[Hg] 163/79 mm[Hg] 118/81 mm[Hg] LINDA OSORIO [employer] 5 09:08:37 Social History Question Answer Notes LastModified by Organizat ion Details LastModified Time Tobacco Smoking Status Current Every Day Smoker SocialHisto ryQuestion: 'Tobacco/Al cohol/Suppl ements'; SocialHisto ryResponse: 'Current Everyday Smoker'; Not Available [employer] 07/23/2022 22:56:33 Do You Have An Advance Directive? No Information not available 11/25/2022 Is Your Home Air Conditioned? Yes Information not available 11/25/2022 In The 14 Days Before Symptom Onset, Have You Had Close Contact With A Laboratory-confir med COVID-19 While That Case Was Ill? No Information not available 11/25/2022 In The 14 Days Before Symptom Onset, Have You Had Close Contact With A Person Who Is Under Investigation For COVID-19 While That Person Was Ill? No Information not available 11/25/2022 Have You Been To An Area Known To Be High Risk For COVID-19? No Information not available 11/25/2022 What Type Of Diet Are You Following? REGULAR Information not available 11/25/2022 Who Is Your Employer? Self Employed Information not available 11/25/2022 Have There Been Any Changes To Your Family Or Social Situation? No Information no t available 11/25/2022 Are There Any Guns Present In Your Home? Yes Information not available 11/25/2022 Do You Have A Medical Power Of Board Design [employer]? No Information not available 11/25/2022 What Was The Date Of Your Most Recent Tobacco Screening? 08/17/2025 Information not available 08/17/2025 What Is Your Current Pack Years? 20-29packyea rs Information not available 06/20/2023 What Is Your Relationship Status? Information not available 11/25/2022 Do You Use Your Seat Belt Or Car Seat Routinely? Yes Information not available 11/25/2022 Do You Have Smoke And Carbon Monoxide Detectors In Your Home? Yes Information not available 11/25/2022 At What Age Did You Start Smoking Tobacco? 21 Information not available 11/25/2022 Are You Passively Exposed To Smoke? No Information no t available 11/25/2022 Are There Any Smokers In Your House? No Information not available 11/25/2022 How Much Tobacco Do You Smoke? 0.5 PPD Information not available 11/25/2022 Do You Use Sunscreen Routinely? No Information not available 11/25/2022 Has Tobacco Cessation Counseling Been Provided? No Information not available 11/25/2022 Have You Recently Traveled Abroad? No Information not available 11/25/2022 Are You Currently In School? No Information not available 11/25/2022 Do You Have Any Dietary Restrictions? No Information not available 11/25/2022 Sex: Male Functional Status Question Answer Note LastModified by Organizat ion Details LastModified Time Do you use any illicit or recreational drugs? No Information not available 11/25/2022 Do you or have you ever used any other forms of tobacco or nicotine? No Information not available 11/25/2022 What is your level of alcohol consumption? None Information not available 11/25/2022 Are you currently employed? Yes Information not available 11/25/2022 Do you have transportation difficulties? No Information not available 11/25/2022 Are you able to care for yourself independently? Yes Information not available 11/25/2022 Mental Status None recorded. Family History Relationship Description Onset Age of this Age Resolved Age Notes LastModified by Organization Details LastModified Time Unspecified Relation Family history of Aortic aneurysm Relati ve: ''; [email or web address] Not available 07/23/2022 23:03:38 Notes:*Procedure Description : Documented family medical history in mother*Relative: Mother *Procedure Description: Documented family medical history in father*Relative: Father Medical History Condition Response Obesity Y Kidney Stones Y Hypothyroidism Y Hypertension Y Immunizations Vaccine Type Date Status Note Provider Nam e and Address Organization Details Recorded Time Hep A, adult 8 completed LINDA chen, [employer] 11/25/2022 11:48:47 Influenza, split virus, quadrivalent, preservative 8 completed Not Available [facility] 07/24/2022 00:01:48 Tdap 9 completed LINDA chen, [employer] 11/25/2022 11:48:47 Influenza, split virus, trivalent, preservative 9 completed Not Available [facility] 10/28/2023 15:15:44 Influenza, split virus, quadrivalent, preservative 0 completed LINDA MYNEAR null, [employer] 11/25/2022 11:48:47 Hep A, adult 9 completed LINDA MYNEAR null, [employer] 11/25/2022 11:48:47 Td (adult), 2 Lf tetanus toxoid, preservative free, adsorbed 6 completed LINDA MYNEAR null, [employer] 11/25/2022 11:48:47 Hep B, adult 0 completed LINDA MYNEAR null, [employer] 11/25/2022 11:48:47 Hep B, adult 0 completed LINDA MYNEAR null, [employer] 11/25/2022 11:48:47 Hep B, adult 0 completed LINDA MYNEAR null, [employer] 11/25/2022 11:48:47 Influenza, split virus, quadrivalent, preservative 9 completed LINDA MYNEAR null, [employer] 11/25/2022 11:48:47 Past Encounters Encounter ID Performer Location Encounter Start Date Encounter Closed Date Diagnosis/Indication Diagnosis SNOMED-CT Code Diagnosis ICD10 Code Diagnosis IMO Codes Diagnosis Note [id number] Jocelynn Thurston APRN [address] [address] 08/17/2025 08:56:56 08/17/2025 10:39:56 Acute bronchitis 76159641 J20.9 [id number] Elan Saavedra presented with a constant headache for 1.5 weeks, body aches, dyspnea, fatigue, right ear pain, wheezing, and minimal productive cough. His medical history includes ocular herpes requiring lifelong Valtrex. Examinatio n revealed diffuse lung inflammati on with wheezing and right ear effusion. He was diagnosed with post-viral bronchitis and right ear effusion. Treatment included antibiotic s, steroids, albuterol inhaler, and continuati on of Tessalon Perles which had been helping his cough. Tylenol, ibuprofen, NyQuil, and Mucinex had not provided relief. Body mass index 30+ - obesity 975113914 E66.9 [id number] Health Concerns Section Related Observation LastModified by Organization Detai ls LastModified Time None Recorded Concern Status LastModified by Organization Details LastModified Time None Recorded Payers Encounter Date Sequence Insurance Name Policy Number Policy Dennis Covered Member ID Dennis Member ID Guarantor Name 08/17/2025 1 [employer] [facility] (MEDICAID HMO) Elan Saavedra [id number] Elan Saavedra Notes Date Note Type Note Provider Name and Address Organization Details Recorded Time 08/17/2025 text/html ROS as noted in the HPI Chief ComplaintConstant headache for a week and a half, body aches, difficulty breathing, fatigue, right ear pain that started last night when it felt like this eardrum popped , wheezing, cough with minimal sputum productionHistory of Present IllnessDustleroy Saavedra presents with a constant headache that started approximately a week and a half ago, accompanied by progressive respiratory symptoms and ear pain. The headache has been persistent 24 hours a day and has not responded to Tylenol or ibuprofen. He initially attributed it to work stress but the symptoms have worsened over time.Over the weekend, he developed body aches and began feeling sick. By the end of the weekend, he was experiencing trouble breathing, weakness, and complete fatigue with any activity. Last night, he experienced sudden severe pain in his right ear that felt like his eardrum popped when he rolled over in bed, prompting him to seek medical care.The patient reports wheezing in his lungs but produces very little sputum when coughing, describing it as mostly dry with occasional small amounts. He denies sinus drainage, congestion, or sore throat. He had some diarrhea during the first couple days of the weekend but not significant amounts. He denies vomiting.For symptom management, he has tried NyQuil primarily to help with sleep and cough, and Mucinex, but reports these have not been effective. He has been drinking some juice and water but notes decreased desire to drink due to feeling dehydrated. He continues to smoke, though not as much during this illness. He mentions having Tessalon Perles that were previously prescribed.The patient has a history of herpes in his eye requiring lifelong Valtrex treatment, which resulted from getting insulation behind his eye and subsequently developing a corneal scar after seeing an eye doctor in [place]. Jocelynn Thurston APRN [address] [facility], [place], [address], [facility] [employer] 08/17/2025 13:14:33
--- OUTSIDE RECORDS SUMMARY | 2025-10-14 18:26 | XMS_ITS | Encounter Summary ---
Author Organization Healthcare Address [address] [place] [address] Care Team Providers Care Service Writer Advisor Name Role Phone Jocelynn Thurston APRN Primary Care Provider [phone] Encounter Details Date Type Department Care Team (Latest Contact Info) Description 08/24/2025 Travel Social History Tobacco Use Types Packs/Day Years Used Date Smoking Tobacco: Every Day Cigarettes 1 20 Passive Smoke Exposure: Never Smokeless Tobacco: Never Sex and Gender Information Value Date Recorded Sex Assigned at Not on file Legal Sex Male 7:29 PM EDT Gender Identity Not on file Sexual Orientation Not on file documented as of this encounter Plan of Treatment Upcoming Encounters Date Type Department Care Team (Late st Contact Info) Description 11/28/2025 11:15 AM EST Office Visit [facility] [address] [place] [address] Bala Washburn MD [address] [address] documented as of this encounter Visit Diagnoses Not on filedocumented in this encounter Care Teams Service Writer Advisor Relationship Specialty Start Date End Date Jocelynn Thurston APRN [address] [place] [address] PCP - General 06/19/25 documented as of this encounter
--- OUTSIDE RECORDS SUMMARY | 2025-10-14 18:26 | XMS_ITS | Encounter Summary ---
Author Organization Healthcare Address [address] [place] [address] Care Team Providers Care Club Attendant Name Role Phone Jocelynn Thurston APRN Primary Care Provider [phone] Encounter Details Date Type Department Care Team (Latest Contact Info) Description 08/25/2025 Travel Social History Tobacco Use Types Packs/Day [...] Description 11/28/2025 11:15 AM EST Office Visit [facility] [address] [place] [address] Bala Washburn MD [address] [address] documented as of this encounter Visit Diagnoses Not on filedocumented in this encounter Additional Health Concerns Assessment Noted Time A Body Mass Index follow-up plan has been documented for the patient 08/25/2025 2:27 PM EDT documented as of this encounter Care Teams Club Attendant Relationship Specialty Start Date End Date Jocelynn Thurston APRN [address] [place] [address] PCP - General 06/19/25 documented as of this encounter
--- OUTSIDE RECORDS SUMMARY | 2025-10-14 18:26 | XMS_ITS | Clinical Summary ---
Author Organization [facility] Address [address] [place] [address] Care Team Providers Care Database Security Expert Name Role Phone Karena Jocelynn Luna APRN Primary Care Provider + [phone] Allergies Active Allergy Reactions Criticality Noted Date Comments Penicillins Hives,Rash,Swelling High 12/18/2016 Medications escitalopram (Lexapro) 20 MG tablet Take 1 tablet by mouth 1 time each day. Active levothyroxine (Synthroid, Levoxyl) 25 MCG tablet Take 1 tablet by mouth 1 time each day. Active lisinopril-hydr oCHLOROthiazide 10-12.5 MG tablet Take 1 tablet by mouth 1 time each day. Active potassium citrate CR (Urocit-K-10) 10 mEq ER tablet Take 1 tablet every day by oral route, for Kidney stone prevention. 5 Active busPIRone (Buspar) 5 MG tablet Take 1 tablet by mouth 3 times a day. Active valACYclovir (Valtrex) 500 MG tablet Take 1 tablet by mouth daily. Active doxycycline (Monodox) 100 MG capsule take one capsule by mouth twice daily for 5 days 5 Active predniSONE (Deltasone) 20 MG tablet take two tablets by mouth daily for 5 days 5 Active QUEtiapine (SEROquel) 25 MG tablet TAKE ONE TABLET BY MOUTH DAILY NEEDED FOR insomnia 5 Active rosuvastatin (Crestor) 10 MG tablet Take 1 tablet by mouth daily. for cholesterol Active prednisoLONE acetate (Pred-Forte) 1 % ophthalmic suspension Administer 1 drop into the left eye daily. 10 mL 1 5 Active valACYclovir (Valtrex) 500 MG tabletIndicatio ns:Herpes keratitis Take 1 tablet by mouth daily. 30 tablet 2 Active Active Problems Problem Noted Date Diagnosed Date Vitamin D deficiency 06/06/2021 Overview (06/20/2025): Problem Code: E55.9; Problem Code Type: ICD-10; Hypothyroidism 04/26/2019 Encounters Date Type Department Care Team Description 08/25/2025 1:45 PM EDT Office Visit [facility] [address] [place] [address] Bala Washburn MD Herpes keratitis (Primary Dx) 08/25/2025 Travel 08/24/2025 Travel 07/21/2025 12:45 PM EDT Office Visit [facility] [address] [place] [address] Bala Washburn MD Corneal neovascularization of left eye (Primary Dx); Corneal scar, left eye; 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 07/21/2025 Travel from Last 3 Months Family History Medical History Relation Name Comments Cancer Paternal Grandmother Relation Name Status Comments Paternal Grandmother Social History Tobacco Use Types Packs/Day Years Used Date Smoking Tobacco: Every Day Cigarettes 1 20 Passive Smoke Exposure: Never Smokeless Tobacco: Never Tobacco Cessation:Ready to Q uit: No; Counseling Given: No Sex and Gender Information Value Date Recorded Sex Assigned at Not on file Legal Sex Male 7:29 PM EDT Gender Identity Not on file Sexual Orientation Not on file Plan of Treatment Upcoming Encounters Date Type Department Care Team (Late st Contact Info) Description 11/28/2025 11:15 AM EST Office Visit [facility] [address] [place] [address] Bala Washburn MD [address] [address] Health Maintenance Due Date Last Done Comments [facility]-Depression Screening 1981 [facility]-HIV Screening 1981 [facility]-Hepatitis C Screening 1981 [facility]-Infant/Child/Adol SDOH Screenings 1981 [id number] Vaccine (#1) 1986 [facility]-Varicella Vaccines (1 of 2 - 13+ 2-dose series) 1994 [facility]- SDOH Screenings 1999 [facility]-Adult SDOH Screenings 1999 [facility]-Pneumococcal Vaccine: Pediatrics (0 to 5 Years) and At-Risk Patients (6 to 49 Years) (1 of 2 - PCV) 2000 [facility]-Zoster Vaccines (1 of 2) 2000 HPV Vaccines (1 - 3-dose SCDM series) 2008 [facility]-Influenza Vaccine (#1) 07/18/202509/23, 08/30/2019, 08/15/2018 [facility]-DTaP,Tdap,and Td Vaccines (3 - Td or Tdap) 07/05/2029 07/05/2019, 06/14/1996 [facility]-Hepatitis B Vaccines Completed 000, 01/09/2000, 11/22/1999 [facility]-Hepatitis A Vaccines Aged Out 019, 11/03/2018 No longer eligible based on patient's age to complete this topic [facility]-HIB Vaccines Aged Out No longer e ligible based on patient's age to complete this topic [facility]-IPV Vaccines Aged Out No longer e ligible based on patient's age to complete this topic [facility]-Rotavirus Vaccines Aged Out No lo nger eligible based on patient's age to complete this topic Insurance CAROL, ANNALEE [id number] [employer] [facility] MEDICAID Care Teams Database Security Expert Relationship Specialty Start Date End Date Jocelynn Thurston, REED [address] [place] [address] PCP - General 06/19/25
--- OUTSIDE RECORDS SUMMARY | 2025-10-14 18:26 | XMS_ITS | Data Portability ---
Author Organization [employer] [facility] Address [address] [place] [address] Assessment Encounter Date Assessment Date Assessment LastModified by Organization Details LastModified Time 06/20/2023 06/20/2023 The patient advised to continue a healthy diet and exercise regularly. He was also advised to: . Labs will be sent to evaluate blood count, renal function lipids and PSA. Advised patient to follow up in 1 year or sooner if needed. Not available 06/20/2023 15:48:38 08/20/2024 08/20/2024 He declined flu vaccination today. Not available 08/22/2024 16:02:37 Plan of Treatment Reminders Order Date Submit Date Provider Last Modified By Organization Details Last Modified Time Details Appointments CDL PHYSICAL 2024 02:00P M Rafaela Thurston APRN Not available Not available Not available Lab lipid panel, serum 2023 [facility] [address] [place], [address], 08/24/2024 08:14:28 CBC w/ auto diff 2023 LOUVALE [employer]), [address] [place], [address], 08/24/2024 08:14:26 CMP, serum or plasma 2023 [facility]E [facility] ([place]), [address] [facility], [place], [address], 08/24/2024 08:14:27 vitamin D, 25-hydrox y, total, serum 2023 024 MACARIO [facility] ([place]), [address] [facility], [place], [address], 08/24/2024 08:14:28 TSH + free T4, serum 2023 024 LOU[facility]E [facility] ([place]), [address] [facility], [place], [address], 08/24/2024 08:14:26 urinalysi s, dipstick 2022 023 [facility], [address] [place] [address], [address], 10/28/2023 15:43:59 HbA1c (hemoglob in A1c), blood [email or web address], [address] [place] [address], [place], [address], 10/28/2023 15:46:37 lipid panel, serum 2022 023 [employer] [facility], [address], [place], [address], 06/21/2023 04:53:20 vitamin D, 25-hydrox y, total, serum 2022 023 [facility], [address], [place], [address], 06/21/2023 04:53:23 PSA, serum or plasma 2022 023 [employer] [facility], [address], [place], [address], 06/21/2023 04:53:21 vitamin B12 + folate, serum or blood 2022 023 [employer] [facility], [address], [place], [address], 06/21/2023 04:53:22 TSH, serum or plasma 2022 023 [employer] [facility], [address], [place], [address], 06/21/2023 04:53:22 CMP, serum or plasma 2022 0[address] [employer] [facility], [address], [place], [address], 06/21/2023 04:53:20 CBC w/ auto diff 2022 023 [employer] [facility], [address], [place], [address], 06/21/2023 04:53:21 urinalysi s, dipstick [address], [address] [place] [address], [address], 11/25/2022 12:08:04 Referral cardiolog ist referral - first available appt; Dr Rahman please 2023 024 tommie Eli MD, [address] [place], [address], 09/27/2024 13:33:42 orthopedi c surgeon referral - first available appt 2022 023 [facility], [address] [place] [address], [address], 07/22/2023 12:43:32 Procedures None recorded. Surgeries None recorded. Imaging electroca rdiogram 2023 024 [facility], [address] [place] [address], [address], 08/20/2024 15:12:24 Medication Orders albuterol sulfate HFA 90 mcg/actua tion aerosol inhaler 2024 025 [facility], [address] [place] [address], [address], 08/17/2025 16:42:27 prednison e 20 mg tablet 2024 025 [facility], [address] [place] [address], [address], 08/29/2025 05:02:42 azithromy kala 250 mg tablet 2024 025 [facility], [address] [place] [address], [address], 08/17/2025 16:42:27 benzonata te 200 mg capsule 2024 025 [facility], [address] [place] [address], [address], 08/17/2025 16:42:26 potassium citrate ER 10 mEq (1,080 mg) tablet,ex tended release 2023 024 [facility], [address] [place] [address], [address], 11/18/2024 08:17:03 quetiapin e 25 mg tablet 2023 024 [facility], [address] [place] [address], [address], 09/28/2024 14:26:20 Patient TargetsNo targets recorded. Patient Instructions Encounter Date Encounter Id Patient Instructions Last Modified By Organization Details Last Modified Time 10/28/2023 [id number] visual acuity* cfryman Not available 11/13/2023 08:42:37 Reason for Referral Orthopedic Surgeon Referral for Shoulder joint pain first available appt Referring Physician: Jocelynn Thurston, [facility], Encounter Date: 06/20/2023 [employer] Referral for Ch est pain first available appt; Dr Rahman please Referring Physician: Jocelynn Thurston, [facility], Encounter Date: 08/20/2024 Results Created Date Observation Date Name Description Value Unit Range Abnormal Flag Note LastModifiedBy Organization Detail LastModifiedTime 11/25/1911/25/2022 urina lysis , dipst ick Leukocytes Negati ve Not Available [address], [address], 11/25/2022 11:57:00 11/25/1911/25/2022 urina lysis , dipst ick Nitrite negati ve Not Available [address], [address], 11/25/2022 11:57:00 11/25/19 23 11/25/2022 urina lysis , dipst ick Urobilinogen .2 Not Available [address], [address], 11/25/2022 11:57:00 11/25/19 23 11/25/2022 urina lysis , dipst ick Protein Negati ve Not Available [address], [address], 11/25/2022 11:57:00 11/25/19 23 11/25/2022 urina lysis , dipst ick pH 7.0 Not Available [address], [address], 11/25/2022 11:57:00 11/25/19 23 11/25/2022 urina lysis , dipst ick Blood Non-He molyze d: Trace Not Available [address] [place], [address], 11/25/2022 11:57:00 11/25/1911/25/2022 urina lysis , dipst ick Specific [place] 1.025 Not Available [address], [address], 11/25/2022 11:57:00 11/25/19 23 11/25/2022 urina lysis , dipst ick Ketone Negati ve Not Available [address], [address], 11/25/2022 11:57:00 11/25/1911/25/2022 urina lysis , dipst ick Bilirubin Negati ve Not Available [address], [address], 11/25/2022 11:57:00 11/25/19 23 11/25/2022 urina lysis , dipst ick Glucose Negati ve Not Available [address], [address], 11/25/2022 11:57:00 11/25/19 23 11/25/2022 urina lysis , dipst ick Appearance Clear Not Available [address], [address], 11/25/2022 11:57:00 11/25/1911/25/2022 urina lysis , dipst ick Color Yellow Not Available [address], [address], 11/25/2022 11:57:00 06/20/20 23 06/21/2023 LIPID PANEL , STAND JUSTIN cholesterol, total 250 mg/dL <200 high Not Available [facility] [place] [facility] [address], [place], [address], 06/21/2023 07:04:07 06/20/20 23 06/21/2023 LIPID PANEL , STAND JUSTIN HDL cholesterol 45 mg/dL > or = 40 normal Not Available [facility] [place] [facility] [address], [place], [address], 06/21/2023 07:04:07 06/20/20 23 06/21/2023 LIPID PANEL , STAND JUSTIN triglyceride s 111 mg/dL <150 normal Not Available [facility] [place] [facility] [address] [facility], [place], [address], 06/21/2023 07:04:07 06/20/20 23 06/21/2023 LIPID PANEL , STAND JUSTIN LDL-choleste rol 181 mg/dL _(tiesha c) high Refer ence range : <100 Le able range <100 mg/dL for prima ry preve ntion ; <70 mg/dL for patie nts with CHD or diabe tic patie nts with > or = 2 CHD risk facto rs. LDL-C is now calcu lated using the Nayana gorman-Hop kins kearau rfaa n, which is a valid ated novel evens stanford r accur acy than the Fried paz equat ion in the estim ation of LDL-C . Nayana gorman SS et al. HADLEY. 2013; 310(1 9): 2061- 2068 (http ://ed ucati on.Qu Mu knutson tics. com/f aq/FA Q164) Not Available [facility] [place] [facility] [address], [place], [address], 06/21/2023 07:04:07 06/20/20 23 06/21/2023 LIPID PANEL , STAND JUSTIN chol/HDLC ratio 5.6 (calc ) <5.0 high Not Available [facility] [place] [facility] [address], [place], [address], 06/21/2023 07:04:07 06/20/2006/21/2023 LIPID PANEL , STAND JUSTIN non HDL cholesterol 205 mg/dL _(tiesha c) <130 high For patie nts with diabe jitednra plus 1 major ASCVD risk facto r, treat ing to a non-H DL-C goal of <100 mg/dL (LDL- C of <70 mg/dL ) is consi dered a thera peuti c optio n. Not Available [facility] [place] [facility] [address] [place], [address], 06/21/2023 07:04:07 06/20/2006/21/2023 COMPR EHENS RISHABH METAB OLIC PANEL glucose 84 mg/dL 65-99 normal Fasti ng refer ence inter david Not Available [facility] [address] [place], [address], 06/21/2023 07:04:08 06/20/20 23 06/21/2023 COMPR EHENS RISHABH METAB OLIC PANEL urea nitrogen (BUN) 12 mg/dL 7-25 normal Not Available [facility] [address] [place], [address], 06/21/2023 07:04:08 06/20/2006/21/2023 COMPR EHENS RISHABH METAB OLIC PANEL creatinine 0.83 mg/dL 0.60-1 .29 normal Not Available [facility] [address] [place], [address], 06/21/2023 07:04:08 06/20/2006/21/2023 COMPR EHENS RISHABH METAB OLIC PANEL eGFR 113 mL/mi n/1.7 3m2 > or = 60 normal Not Available [facility] [address] [place], [address], 06/21/2023 07:04:08 06/20/20 23 06/21/2023 COMPR EHENS RISHABH METAB OLIC PANEL BUN/creatini ne ratio SEE NOTE: (calc ) 6-22 Not Repor peter: BUN and Creat inine are withi n refer ence range . Not Available [facility] [place] [facility] [address] [place], [address], 06/21/2023 07:04:08 06/20/20 23 06/21/2023 COMPR EHENS RISHABH METAB OLIC PANEL sodium 142 mmol/ L 135-14 6 normal Not Available [facility] [place] [facility] [address] [place], [address], 06/21/2023 07:04:08 06/20/20 23 06/21/2023 COMPR EHENS RISHABH METAB OLIC PANEL potassium 4.3 mmol/ L 3.5-5. 3 normal Not Available [facility] [address] [place], [address], 06/21/2023 07:04:08 06/20/20 23 06/21/2023 COMPR EHENS RISHABH METAB OLIC PANEL chloride 105 mmol/ L 98-110 normal Not Available [facility] [place] [facility] [address] [place], [address], 06/21/2023 07:04:08 06/20/20 23 06/21/2023 COMPR EHENS RISHABH METAB OLIC PANEL carbon dioxide 29 mmol/ L 20-32 normal Not Available [facility] [address] [place], [address], 06/21/2023 07:04:08 06/20/20 23 06/21/2023 COMPR EHENS RISHABH METAB OLIC PANEL calcium 9.5 mg/dL 8.6-10 .3 normal Not Available [facility] [address] [place], [address], 06/21/2023 07:04:08 06/20/20 23 06/21/2023 COMPR EHENS RISHABH METAB OLIC PANEL protein, total 7.0 g/dL 6.1-8. 1 normal Not Available [facility] [address] [facility] [place], [address], 06/21/2023 07:04:08 06/20/20 23 06/21/2023 COMPR EHENS RISHABH METAB OLIC PANEL albumin 4.3 g/dL 3.6-5. 1 normal Not Available [facility] [address] [facility] [place], [address], 06/21/2023 07:04:08 06/20/20 23 06/21/2023 COMPR EHENS RISHABH METAB OLIC PANEL globulin 2.7 g/dL_ (calc ) 1.9-3. 7 normal Not Available [facility] [address] [facility] [place], [address], 06/21/2023 07:04:08 06/20/20 23 06/21/2023 COMPR EHENS RISHABH METAB OLIC PANEL albumin/glob ulin ratio 1.6 (calc ) 1.0-2. 5 normal Not Available [facility] [address] [facility] [place], [address], 06/21/2023 07:04:08 06/20/20 23 06/21/2023 COMPR EHENS RISHABH METAB OLIC PANEL bilirubin, total 0.8 mg/dL 0.2-1. 2 normal Not Available [facility] [address] [facility] [place], [address], 06/21/2023 07:04:08 06/20/20 23 06/21/2023 COMPR EHENS RISHABH METAB OLIC PANEL alkaline phosphatase 65 U/L 36-130 normal Not Available [facility] [address] [facility] [place], [address], 06/21/2023 07:04:08 06/20/20 23 06/21/2023 COMPR EHENS RISHABH METAB OLIC PANEL AST 15 U/L 10-40 normal Not Available [facility] [address] [place], [address], 06/21/2023 07:04:08 06/20/20 23 06/21/2023 COMPR EHENS RISHABH METAB OLIC PANEL ALT 16 U/L 9-46 normal Not Available [facility] [place] [facility] [address] [place], [address], 06/21/2023 07:04:08 06/20/20 23 06/21/2023 CBC (INCL UDES DIFF/ PLT) white blood cell count 7.3 thous and/u L 3.8-10 .8 normal Not Available [facility] [address] [place], [address], 06/21/2023 04:53:21 06/20/20 23 06/21/2023 CBC (INCL UDES DIFF/ PLT) red blood cell count 5.56 sharri on/uL 4.20-5 .80 normal Not Available [facility] [address] [place], [address], 06/21/2023 04:53:21 06/20/20 23 06/21/2023 CBC (INCL UDES DIFF/ PLT) hemoglobin 17.6 g/dL 13.2-1 7.1 high Not Available [facility] [address] [place], [address], 06/21/2023 04:53:21 06/20/20 23 06/21/2023 CBC (INCL UDES DIFF/ PLT) hematocrit 51.9 % 38.5-5 0.0 high Not Available [facility] [address] [place], [address], 06/21/2023 04:53:21 06/20/20 23 06/21/2023 CBC (INCL UDES DIFF/ PLT) MCV 93.3 fL 80.0-1 00.0 normal Not Available [facility] [address] [place], [address], 06/21/2023 04:53:21 06/20/20 23 06/21/2023 CBC (INCL UDES DIFF/ PLT) MCH 31.7 pg 27.0-3 3.0 normal Not Available [facility] [place] [facility] [address] [place], [address], 06/21/2023 04:53:21 06/20/20 23 06/21/2023 CBC (INCL UDES DIFF/ PLT) MCHC 33.9 g/dL 32.0-3 6.0 normal Not Available [facility] [place] [facility] [address] [place], [address], 06/21/2023 04:53:21 06/20/20 23 06/21/2023 CBC (INCL UDES DIFF/ PLT) RDW 13.0 % 11.0-1 5.0 normal Not Available [facility] [address] [place], [address], 06/21/2023 04:53:21 06/20/20 23 06/21/2023 CBC (INCL UDES DIFF/ PLT) platelet count 183 thous and/u L 140-40 0 normal Not Available [facility] [place] [facility] [address] [place], [address], 06/21/2023 04:53:21 06/20/20 23 06/21/2023 CBC (INCL UDES DIFF/ PLT) MPV 10.4 fL 7.5-12 .5 normal Not Available [facility] [place] [facility] [address] [place], [address], 06/21/2023 04:53:21 06/20/20 23 06/21/2023 CBC (INCL UDES DIFF/ PLT) absolute neutrophils 3541 cells /uL 1500-7 800 normal Not Available [facility] [place] [facility] [address], [place], [address], 06/21/2023 04:53:21 06/20/20 23 06/21/2023 CBC (INCL UDES DIFF/ PLT) absolute lymphocytes 2869 cells /uL 850-39 00 normal Not Available [facility] [place] [facility] [address], [place], [address], 06/21/2023 04:53:21 06/20/20 23 06/21/2023 CBC (INCL UDES DIFF/ PLT) absolute monocytes 482 cells /uL 200-95 0 normal Not Available [facility] [place] [facility] [address], [place], [address], 06/21/2023 04:53:21 06/20/2006/21/2023 CBC (INCL UDES DIFF/ PLT) absolute eosinophils 358 cells /uL 15-500 normal Not Available [facility] [place] [facility] [address], [place], [address], 06/21/2023 04:53:21 06/20/20 23 06/21/2023 CBC (INCL UDES DIFF/ PLT) absolute basophils 51 cells /uL 0-200 normal Not Available [facility] [place] [facility] [address], [place], [address], 06/21/2023 04:53:21 06/20/20 23 06/21/2023 CBC (INCL UDES DIFF/ PLT) neutrophils 48.5 % normal Not Available [facility] [place] [facility] [address], [place], [address], 06/21/2023 04:53:21 06/20/2006/21/2023 CBC (INCL UDES DIFF/ PLT) lymphocytes 39.3 % normal Not Available [facility] [place] [facility] [address], [place], [address], 06/21/2023 04:53:21 06/20/20 23 06/21/2023 CBC (INCL UDES DIFF/ PLT) monocytes 6.6 % normal Not Available [facility] [place] [facility] [address] [place], [address], 06/21/2023 04:53:21 06/20/20 23 06/21/2023 CBC (INCL UDES DIFF/ PLT) eosinophils 4.9 % normal Not Available [facility] [place] [facility] [address] [place], [address], 06/21/2023 04:53:21 06/20/20 23 06/21/2023 CBC (INCL UDES DIFF/ PLT) basophils 0.7 % normal Not Available [facility] [place] [facility] [address] [place], [address], 06/21/2023 04:53:21 06/20/20 23 06/21/2023 PSA, TOTAL PSA, total 0.25 NG/mL < or = 4.00 normal The total PSA value from this assay syste m is stand ardiz ed again st the WHO stand justin. The test resul t will be appro ximat curt 20% lower when braden red to the equim olar- stand ardiz ed total PSA (Cabral man Coult er). Braden rison of seria l PSA resul ts shoul d be inter prete d with this fact in mind. This test was perfo rmed using the Sieme ns chemi lumin escen t metho d. Value s obtai adonay from diffe rent assay metho ds canno t be used inter silverman eably . PSA level s, regar dless of value , shoul d not be inter prete d as absol silvia evide nce of the prese nce or absen ce of disea se. Not Available [facility] [place] [facility] [address] [place], [address], 06/21/2023 07:04:09 06/20/20 23 06/21/2023 VITAM IN B12/F OLATE , SERUM PANEL vitamin B12 315 pg/mL 200-11 00 normal Pleas e Note: Altho ugh the refer ence range for vitam in B12 is 200-1 100 pg/mL , it has been repor peter that betwe en 5 and 10% of patie nts with value s betwe en 200 and 400 pg/mL may exper ience neuro psych iatri c and hemat ologi c abnor malit ies due to occul t B12 defic iency ; less than 1% of patie nts with value s above 400 pg/mL will have sympt oms. Not Available [facility] [place] [facility] [address] [place], [address], 06/21/2023 07:04:10 06/20/2006/21/2023 VITAM IN B12/F OLATE , SERUM PANEL folate, serum 8.4 NG/mL normal Refer ence Range Low: <3.4 Borde rline : 3.4-5 .4 Rosa l: >5.4 Not Available [facility] [place] [facility] [address] [place], [address], 06/21/2023 07:04:10 06/20/20 23 06/21/2023 TSH W/REF KARISSA TO FT4 TSH w/reflex to FT4 2.64 mIU/L 0.40-4 .50 normal Not Available [facility] [place] [facility] [address] [place], [address], 06/21/2023 07:04:10 06/20/2006/21/2023 VITAM IN D,25- OH,TO JAKY,I A vitamin D,25-oh,tota l,ia 26 NG/mL 30-100 low Vitam in D Statu s 25-OH Vitam in D: Defic iency : <20 ng/mL Insuf ficie ncy: 20 - 29 ng/mL Optim al: > or = 30 ng/mL For 25-OH Vitam in D testi ng on patie nts on D2-simmons pplem entat ion and patie nts for whom quant itati on of D2 and D3 fract ions is requi red, the [facility] eD(TM ) 25-OH VIT D, (D2,D 3), LC/MS /MS is recom obey d: order code [id number] (mark ents >2yrs ). See Note 1 Note 1 For addit ional infor boy molina refer to http: //[facility] venancio Godinez gnost ics.c om/fa q/FAQ 199 (This link is being provi ded for infor fozia shahid/ rhonda correa purpo ses only. ) Not Available [facility] [place] [facility] [address] [place] [address], [place], [address], 06/21/2023 07:04:11 10/28/20 23 10/28/2023 HbA1c (hemo globi n A1c), blood HbA1c 5.6 Not Available [address], [address], 10/28/2023 10:06:10 10/28/20 23 10/28/2023 urina lysis , dipst ick Leukocytes Negati ve Not Available [address], [address], 10/28/2023 10:06:04 10/28/20 23 10/28/2023 urina lysis , dipst ick Nitrite negati ve Not Available [address], [address], 10/28/2023 10:06:04 10/28/20 23 10/28/2023 urina lysis , dipst ick Urobilinogen .2 Not Available [address], [address], 10/28/2023 10:06:04 10/28/20 23 10/28/2023 urina lysis , dipst ick Protein Negati ve Not Available [address], [address], 10/28/2023 10:06:04 10/28/20 23 10/28/2023 urina lysis , dipst ick pH 6.0 Not Available [address], [address], 10/28/2023 10:06:04 10/28/20 23 10/28/2023 urina lysis , dipst ick Blood Modera te Not Available [address], [address], 10/28/2023 10:06:04 10/28/2010/28/2023 urina lysis , dipst ick Specific [place] 1.030 Not Available [address], [address], 10/28/2023 10:06:04 10/28/20 23 10/28/2023 urina lysis , dipst ick Ketone Large (160) Not Available [address], [address], 10/28/2023 10:06:04 10/28/20 23 10/28/2023 urina lysis , dipst ick Bilirubin Negati ve Not Available [address], [address], 10/28/2023 10:06:04 10/28/20 23 10/28/2023 urina lysis , dipst ick Glucose Negati ve Not Available [address], [address], 10/28/2023 10:06:04 10/28/20 23 10/28/2023 urina lysis , dipst ick Appearance Clear Not Available [address], [address], 10/28/2023 10:06:04 10/28/20 23 10/28/2023 urina lysis , dipst ick Color Yellow Not Available [address], [place], [address], 10/28/2023 10:06:04 08/23/20 24 08/24/2024 TSH+F REE T4 TSH 3.200 uIU/m L 0.450- 4.500 normal Not Available [facility] ([facility]) [address] [place], [address], 08/24/2024 08:14:26 08/23/2008/24/2024 TSH+F REE T4 T4,free(dire ct) 1.01 NG/dL 0.82-1 .77 normal Not Available [facility] ([facility]) [address] [place], [address], 08/24/2024 08:14:26 08/23/20 24 08/24/2024 CBC WITH DIFFE RENTI AL/PL ATELE T WBC 8.0 x10e3 /uL 3.4-10 .8 normal Not Available [facility] ([facility]) [address] [place], [address], 08/24/2024 08:14:26 08/23/2008/24/2024 CBC WITH DIFFE RENTI AL/PL ATELE T RBC 5.80 x10e6 /uL 4.14-5 .80 normal Not Available [facility] ([facility]) [address] [place], [address], 08/24/2024 08:14:26 08/23/20 24 08/24/2024 CBC WITH DIFFE RENTI AL/PL ATELE T hemoglobin 18.4 g/dL 13.0-1 7.7 above high normal Not Available [facility] ([facility]) [address] [place], [address], 08/24/2024 08:14:26 08/23/2008/24/2024 CBC WITH DIFFE RENTI AL/PL ATELE T hematocrit 54.8 % 37.5-5 1.0 above high normal Not Available [facility] ([facility]) [address] [facility], [place], [address], 08/24/2024 08:14:26 08/23/2008/24/2024 CBC WITH DIFFE RENTI AL/PL ATELE T MCV 95 fL 79-97 normal Not Available [facility] ([facility]) [address] [facility], [place], [address], 08/24/2024 08:14:26 08/23/2008/24/2024 CBC WITH DIFFE RENTI AL/PL ATELE T MCH 31.7 pg 26.6-3 3.0 normal Not Available [facility] ([facility]) [address] [facility], [place], [address], 08/24/2024 08:14:26 08/23/2008/24/2024 CBC WITH DIFFE RENTI AL/PL ATELE T MCHC 33.6 g/dL 31.5-3 5.7 normal Not Available [facility] ([facility]) [address] [place], [address], 08/24/2024 08:14:26 08/23/2008/24/2024 CBC WITH DIFFE RENTI AL/PL ATELE T RDW 13.0 % 11.6-1 5.4 Not Available [facility] ([facility]) [address] [place], [address], 08/24/2024 08:14:26 08/23/2008/24/2024 CBC WITH DIFFE RENTI AL/PL ATELE T platelets 219 x10e3 /uL 150-45 0 normal Not Available [facility] ([facility]) [address] [place], [address], 08/24/2024 08:14:26 08/23/20 24 08/24/2024 CBC WITH DIFFE RENTI AL/PL ATELE T neutrophils 49 % not estab. normal Not Available [facility] ([facility]) [address] [facility], [place], [address], 08/24/2024 08:14:26 08/23/2008/24/2024 CBC WITH DIFFE RENTI AL/PL ATELE T lymphs 36 % not estab. normal Not Available [facility] ([facility]) [address] [facility], [place], [address], 08/24/2024 08:14:26 08/23/2008/24/2024 CBC WITH DIFFE RENTI AL/PL ATELE T monocytes 9 % not estab. normal Not Available [facility] ([facility]) [address] [facility], [place], [address], 08/24/2024 08:14:26 08/23/2008/24/2024 CBC WITH DIFFE RENTI AL/PL ATELE T eos 5 % not estab. normal Not Available [facility] ([facility]) [address] [facility], [place], [address], 08/24/2024 08:14:26 08/23/20 24 08/24/2024 CBC WITH DIFFE RENTI AL/PL ATELE T basos 1 % not estab. normal Not Available [facility] ([facility]) [address] [facility], [place], [address], 08/24/2024 08:14:26 08/23/2008/24/2024 CBC WITH DIFFE RENTI AL/PL ATELE T immature cells HEMATOLOGY TECHNOLOGIST Not Available [facility] ([facility]) [address] [facility], [place], [address], 08/24/2024 08:14:26 08/23/20 24 08/24/2024 CBC WITH DIFFE RENTI AL/PL ATELE T neutrophils (absolute) 4.0 x10e3 /uL 1.4-7. 0 normal Not Available [facility] ([facility]) [address] [facility], [place], [address], 08/24/2024 08:14:26 08/23/20 24 08/24/2024 CBC WITH DIFFE RENTI AL/PL ATELE T lymphs (absolute) 2.9 x10e3 /uL 0.7-3. 1 normal Not Available [facility] ([facility]) [address] [facility], [place], [address], 08/24/2024 08:14:26 08/23/2008/24/2024 CBC WITH DIFFE RENTI AL/PL ATELE T monocytes(ab solute) 0.7 x10e3 /uL 0.1-0. 9 normal Not Available [facility] ([facility]) [address] [facility], [place], [address], 08/24/2024 08:14:26 08/23/20 24 08/24/2024 CBC WITH DIFFE RENTI AL/PL ATELE T eos (absolute) 0.4 x10e3 /uL 0.0-0. 4 normal Not Available [facility] ([facility]) [address] [facility], [place], [address], 08/24/2024 08:14:26 08/23/20 24 08/24/2024 CBC WITH DIFFE RENTI AL/PL ATELE T baso (absolute) 0.1 x10e3 /uL 0.0-0. 2 normal Not Available [facility] ([facility]) [address] [place], [address], 08/24/2024 08:14:26 08/23/20 24 08/24/2024 CBC WITH DIFFE RENTI AL/PL ATELE T immature granulocytes 0 % not estab. Not Available [facility] ([facility]) [address] [place], [address], 08/24/2024 08:14:26 08/23/20 24 08/24/2024 CBC WITH DIFFE RENTI AL/PL ATELE T immature grans (abs) 0.0 x10e3 /uL 0.0-0. 1 Not Available [facility] ([facility]) [address] [facility], [place], [address], 08/24/2024 08:14:26 08/23/2008/24/2024 CBC WITH DIFFE RENTI AL/PL ATELE T NRBC HEMATOLOGY TECHNOLOGIST Not Available [facility] ([facility]) [address] [facility], [place], [address], 08/24/2024 08:14:26 08/23/2008/24/2024 CBC WITH DIFFE RENTI AL/PL ATELE T hematology comments: HEMATOLOGY TECHNOLOGIST Not Available [facility] ([facility]) [address] [facility], [place], [address], 08/24/2024 08:14:26 08/23/2008/24/2024 COMP. METAB OLIC PANEL (14) glucose 86 mg/dL 70-99 normal Not Available [facility] ([facility]) [address] [facility], [place], [address], 08/24/2024 08:14:27 08/23/20 24 08/24/2024 COMP. METAB OLIC PANEL (14) BUN 13 mg/dL 6-24 normal Not Available [facility] ([facility]) [address] [facility], [place], [address], 08/24/2024 08:14:27 08/23/2008/24/2024 COMP. METAB OLIC PANEL (14) creatinine 0.89 mg/dL 0.76-1 .27 normal Not Available [facility] ([facility]) [address] [facility], [place], [address], 08/24/2024 08:14:27 08/23/20 24 08/24/2024 COMP. METAB OLIC PANEL (14) eGFR 109 mL/mi n/1.7 3 >59 normal Not Available [facility] ([facility]) [address] [facility] [place], [address], 08/24/2024 08:14:27 08/23/20 24 08/24/2024 COMP. METAB OLIC PANEL (14) BUN/creatini ne ratio 15 9-20 normal Not Available [facility] ([facility]) [address] [facility] [place], [address], 08/24/2024 08:14:27 08/23/20 24 08/24/2024 COMP. METAB OLIC PANEL (14) sodium 143 mmol/ L 134-14 4 normal Not Available [facility] ([facility]) [address] [facility], [place], [address], 08/24/2024 08:14:27 08/23/20 24 08/24/2024 COMP. METAB OLIC PANEL (14) potassium 4.3 mmol/ L 3.5-5. 2 normal Not Available [facility] ([facility]) [address] [facility], [place], [address], 08/24/2024 08:14:27 08/23/20 24 08/24/2024 COMP. METAB OLIC PANEL (14) chloride 103 mmol/ L 96-106 normal Not Available [facility] ([facility]) [address] [facility] [place], [address], 08/24/2024 08:14:27 08/23/20 24 08/24/2024 COMP. METAB OLIC PANEL (14) carbon dioxide, total 27 mmol/ L 20-29 normal Not Available [facility] ([facility]) [address] [facility] [place], [address], 08/24/2024 08:14:27 08/23/20 24 08/24/2024 COMP. METAB OLIC PANEL (14) calcium 9.7 mg/dL 8.7-10 .2 normal Not Available [facility] ([facility]) [address] [place], [address], 08/24/2024 08:14:27 08/23/2008/24/2024 COMP. METAB OLIC PANEL (14) protein, total 7.0 g/dL 6.0-8. 5 normal Not Available [facility] ([facility]) [address] [place], [address], 08/24/2024 08:14:27 08/23/20 24 08/24/2024 COMP. METAB OLIC PANEL (14) albumin 4.4 g/dL 4.1-5. 1 normal Not Available [facility] ([facility]) [address] [place], [address], 08/24/2024 08:14:27 08/23/20 24 08/24/2024 COMP. METAB OLIC PANEL (14) globulin, total 2.6 g/dL 1.5-4. 5 Not Available [facility] ([facility]) [address] [place], [address], 08/24/2024 08:14:27 08/23/2008/24/2024 COMP. METAB OLIC PANEL (14) bilirubin, total 0.7 mg/dL 0.0-1. 2 normal Not Available [facility] ([facility]) [address] [place], [address], 08/24/2024 08:14:27 08/23/20 24 08/24/2024 COMP. METAB OLIC PANEL (14) alkaline phosphatase 81 IU/L 44-121 normal Not Available [facility] ([facility]) [address] [place], [address], 08/24/2024 08:14:27 08/23/20 24 08/24/2024 COMP. METAB OLIC PANEL (14) AST (SGOT) 18 IU/L 0-40 normal Not Available [facility] ([facility]) [address] [place], [address], 08/24/2024 08:14:27 08/23/2008/24/2024 COMP. METAB OLIC PANEL (14) ALT (SGPT) 17 IU/L 0-44 normal Not Available [facility] ([facility]) [address] [facility], [place], [address], 08/24/2024 08:14:27 08/23/2008/24/2024 LIPID PANEL cholesterol, total 257 mg/dL 100-19 9 above high normal Not Available [facility] ([facility]) [address] [facility] [place], [address], 08/24/2024 08:14:27 08/23/2008/24/2024 LIPID PANEL triglyceride s 109 mg/dL 0-149 normal Not Available [facility] ([facility]) [address] [place], [address], 08/24/2024 08:14:27 08/23/20 24 08/24/2024 LIPID PANEL HDL cholesterol 44 mg/dL >39 normal Not Available [facility] ([facility]) [address] [place], [address], 08/24/2024 08:14:27 08/23/20 24 08/24/2024 LIPID PANEL VLDL cholesterol tiesha 20 mg/dL 5-40 Not Available [facility] ([facility]) [address] [place], [address], 08/24/2024 08:14:27 08/23/20 24 08/24/2024 LIPID PANEL LDL chol calc ([facility]) 193 mg/dL 0-99 above high normal Not Available [facility] ([facility]) [address] [place], [address], 08/24/2024 08:14:27 08/23/20 24 08/24/2024 LIPID PANEL LDL calc comment: Commen t Consi elin evalu ating for Famil ial Hyper filiberto stero lemia (FH), if clini dain indic ated. Not Available [facility] ([facility]) [address] [facility], [place], [address], 08/24/2024 08:14:27 08/23/20 24 08/24/2024 VITAM IN D, 25-HY DROXY vitamin D, 25-hydroxy 25.2 NG/mL 30.0-1 00.0 below low normal Vitam in D defic iency has been defin ed by the Insti tute of Medic ine and an Endoc rine Socie ty pract ice guide line as a level of serum 25-OH vitam in D less than 20 ng/mL (1,2) . The Endoc rine Socie ty went on to furth er defin e vitam in D insuf ficie ncy as a level betwe en 21 and 29 ng/mL (2). 1. IOM (Inst itute of Medic ine). 2009. Dieta ry refer ence darren es for calci um and D. Janey miguel DC: The Natio nal [facility] Press . 2. Sarah lyon MF, Milan greer [place], Kathleen off-F errar i GILBERT, et al. Evalu ation , treat ment, and preve ntion of vitam in D defic iency : an Endoc rine Socie ty clini tiesha pract ice guide line. JCEM. 2010; 96(7) :1911 -30. Not Available [facility] ([facility]) [address] [facility], [place], [address], 08/24/2024 08:14:28 05/16/20 24 05/16/2024 CT, abdom en + pelvi s, w/o contr ast No observ ation record ed. [email or web address] [facility] [address], [place], [address], 09/05/2024 21:22:51 08/20/20 24 elect rocar diogr am No observ ation record ed. [email or web address] Not Available 2023 16:34:24 11/17/19 25 11/17/2024 XR, chest No observ ation record ed. [email or web address] [facility] [address], [place], [address], 11/23/2024 11:00:23 11/19/19 25 11/17/2024 devon hernandez am No observ ation record ed. [email or web address] [facility] [address], [place], [address], 11/23/2024 10:15:28 Result Notes None recorded. Problems Name Problem SNOMED Code Status Onset Date Resolution Date Notes Provider Name and Address Organization Details Recorded Time Acute sinusiti s 75225894 Completed 201709/21/2018 Problem Code: J01.90; Problem Code Type: ICD-10; Not Available [facility] 2 21:23:57 Acute bronchit is 90351048 Completed 201711/06/2018 Problem Code: J20.9; Problem Code Type: ICD-10; Jocelynn Thurston APRN [address] [place], [address] , [employer] 5 09:17:09 Generali zed anxiety disorder 00120392 Active 2017 Problem Code: F41.1; Problem Code Type: ICD-10; Not Available [facility] 2 21:23:56 Hyperten sive disorder 92273164 Active 2017 Problem Code: I10; Problem Code Type: ICD-10; Not Available [facility] 2 21:23:56 Acute bronchit is 17632821 Completed 201801/19/2019 Problem Code: J20.9; Problem Code Type: ICD-10; Jocelynn Thurston APRN [address] [place], [address] , [employer] 5 09:17:09 Severe obesity 00543068849 104 Completed 201811/29/2019 Problem Code: E66.01; Problem Code Type: ICD-10; Not Available [facility] 2 21:23:56 Finding of body mass index 622190302 Active 2018 Problem Code: Z68.41; Problem Code Type: ICD-10; Not Available [facility] 2 21:23:59 Dietary manageme nt surveill ance Completed 201811/29/2019 Jocelynn Thurston, [employer] [address] [place], [address] , [employer] 4 14:20:47 Nicotine dependen ce in remissio n 108268347 Completed 201811/25/2022 Problem Code: F17.201; Problem Code Type: ICD-10; LINDA JUNIORNEAR null, [employer] 3 11:54:03 Pain in right lower limb 525490522 Completed 201806/23/2019 Not Available [facility] 2 21:23:57 Cellulit is of right lower limb [id number] 523537 Completed 201811/25/2022 Problem Code: L03.115; Problem Code Type: ICD-10; LINDA JUNIORNEAR null, [employer] 3 11:54:03 Hypothyr oidism 55337438 Active 2018 Not Available [facility] 2 21:23:56 Puncture wound of foot 42041674 Completed 201811/25/2022 Problem Code: S91.331A ; Problem Code Type: ICD-10; LINDA JUNIORNEAR null, [employer] 3 11:54:03 Influenz a vaccine needed 82909409130 06 Completed 201811/25/2022 Problem Code: Z23; Problem Code Type: ICD-10; LINDA MYNEAR null, [employer] 3 11:54:03 Influenz a vaccine needed 01059273002 06 Completed 201811/29/2019 Problem Code: Z23; Problem Code Type: ICD-10; LINDA MYNEAR null, [employer] 3 11:54:03 General examinat ion of patient Active 2019 Not Available [facility] 2 21:23:57 Body mass index 30+ - obesity 115604175 Completed 201906/13/2020 Problem Code: Z68.38; Problem Code Type: ICD-10; Jocelynn Thurston APRN [address] [place], [address] , [employer] 5 13:14:10 Pre-surg teddy evaluati on Completed 201912/18/2021 Not Available [facility] 2 21:23:57 Body mass index 30+ - obesity 613777904 Active 2019 Problem Code: Z68.31; Problem Code Type: ICD-10; Jocelynn Thurston APRN [address] [place], [address] , [employer] 5 13:14:09 Influenz a vaccine needed 63261423709 06 Completed 201912/18/2021 Problem Code: Z23; Problem Code Type: ICD-10; LINDA chen [employer] 3 11:54:03 Vitamin D deficien cy 25470958 Active 2020 Problem Code: E55.9; Problem Code Type: ICD-10; Not Available [facility] 2 21:23:56 Tobacco dependen ce caused by cigarett es 22884227772 716530 Active 2020 Problem Code: F17.210; Problem Code Type: ICD-10; Not Available [facility] 2 21:23:56 Mixed hyperlip idemia 728746003 Active 2021 Problem Code: E78.2; Problem Code Type: ICD-10; Not Available [facility] 2 21:23:56 Acute bronchit is 10859402 Active 2024 Problem Code: J20.9; Problem Code Type: ICD-10; Jocelynn Tuhrston APRN [address] [place], [address] , [place] [employer] 5 09:17:09 Notes:*Problem Name: Encount er for general adult medical examination *ICD-10 Codes: Z00.00 *Problem Status: Chronic *Comments: HFT07Cippc: 'Z00.0'; *Problem Code: Z00.0 *Problem Code Type: ICD-10 *Note Date: 06/06/2021 Problem Notes None recorded. Procedures Surgical History Date Name Laterality Status Provider Name and Address Organization Details Recorded Time 11/17/19 ureteroscopy and electrohydraulic lithotripsy of calculus of ureter completed Jocelynn Thurston, [address], [address], [employer]. 08/20/2024 14:28:24 laparoscopic sleeve gastrectomy completed Jocelynn Thurston [address], [address], [employer]. 08/20/2024 13:59:24 Imaging Results None recorded. Procedure Notes None recorded. Medical Equipment None Reported. Allergies Allergen ID Allergen Name Allergen Category Reaction Reaction Severity Criticality Documentation Date Start Date Code Code System Note Provider Name and Address Organization Details Recorded Time 10460 Product containin g penicilli n (product) medicatio n Not available Not available Not available 07/23/2022 60512 8001 SNOMED Aller gyCod e: ''; Aller gyNam e: 'Peni cilli ns'; Aller gyCon ceptT ype: ''; Not Available [facility] 2 22:55:08 Medications Name Sig Start Date Stop [...] completed Not Available Not Available Not Available [place] 5 mg-325 mg tablet As needed 10/22 [...] Heart rate Oxygen saturation Systolic And Diastolic Provider Name and Address Organization Details Last Updated DateTime 3 180.34 cm 36.3 kg/m2 662316. 73 g 98 [degF] 72 /min 100 % 126/71 mm[Hg] LINDA OSORIO [employer] 3 11:48:34 Date Recorded Body height Body mass index (BMI) Body weight Body temperature Heart rate Oxygen saturation Systolic And Diastolic Provider Name and Address Organization Details Last Updated DateTime 3 180.34 cm 37.7 kg/m2 780202. 66 g 97.8 [degF] 75 /min 99 % 111/73 mm[Hg] [employer] 3 09:09:50 Date Recorded Body height Body mass index (BMI) Body weight Body temperature Heart rate Oxygen saturation Systolic And Diastolic Systolic And Diastolic Systolic And Diastolic Provider Name and Address Organization Details Last Updated DateTime 5 180.34 cm 39.1 kg/m2 224617. 58 g 98.1 [degF] 81 /min 92 % 154/81 mm[Hg] 163/79 mm[Hg] 118/81 mm[Hg] [employer] 5 09:08:37 Date Recorded Body height Body mass index (BMI) Body weight Body temperature Heart rate Oxygen saturation Systolic And Diastolic Provider Name and Address Organization Details Last Updated DateTime 4 180.34 cm 37.9 kg/m2 043917. 69 g 97.4 [degF] 84 /min 94 % 125/72 mm[Hg] [employer] 4 14:01:11 Date Recorded Body height Body mass index (BMI) Body weight Body temperature Heart rate Oxygen saturation Systolic And Diastolic Provider Name and Address Organization Details Last Updated DateTime 3 180.34 cm 36.8 kg/m2 390585. 1 g 98 [degF] 83 /min 94 % 134/73 mm[Hg] [employer] 3 15:39:00 Social History Question Answer Notes LastModified by Organizat ion Details LastModified Time Tobacco Smoking Status Current Every Day Smoker SocialHisto ryQuestion: 'Tobacco/Al cohol/Suppl ements'; SocialHisto ryResponse: 'Current Everyday Smoker'; Not Available [facility] 07/23/2022 22:56:33 Do You Have An Advance [...] Do You Have A Medical Power Of Marketing Trainee? No Information not available 11/25/2022 What Was [...] Condition Response Obesity Y Kidney Stones Y Hypertension Y Hypothyroidism Y Immunizations Vaccine Type Date Status Note Provider Nam e and Address Organization Details Recorded Time Hep A, adult 8 completed LINDA chen, [employer] 11/25/2022 11:48:47 Influenza, split virus, quadrivalent, preservative 8 completed Not Available [facility] 07/24/2022 00:01:48 Tdap 9 completed LINDA PACHECONEAR [employer], [employer] 11/25/2022 11:48:47 Influenza, split virus, trivalent, preservative 9 completed Not Available [facility] 10/28/2023 15:15:44 Influenza, split virus, quadrivalent, preservative 0 completed LINDA PACHECONEAR null, [employer] 11/25/2022 11:48:47 Hep A, adult 9 completed LINDA MYNEAR null, [employer] 11/25/2022 11:48:47 Td (adult), 2 Lf tetanus toxoid, preservative free, adsorbed 6 completed LINDA MYNEAR null, [employer] 11/25/2022 11:48:47 Hep B, adult 0 completed LINDA MYNEAR null, [employer] 11/25/2022 11:48:47 Hep B, adult 0 completed LINDA MYNEAR null, [employer] 11/25/2022 11:48:47 Hep B, adult 0 completed LINDA MYNEAR null, [employer] 11/25/2022 11:48:47 Influenza, split virus, quadrivalent, preservative 9 completed LINDA MYNEAR null, [employer] 11/25/2022 11:48:47 Past Encounters Encounter ID Performer Location Encounter Start Date Encounter Closed Date Diagnosis/Indication Diagnosis SNOMED-CT Code Diagnosis ICD10 Code Diagnosis IMO Codes Diagnosis Note [id number] Jocelynn Thurston [address] [address] 11/25/2022 11:23:52 11/25/2022 12:42:22 [employer] license medical examination [id number] Z02.4 CDL EXAM CERTIFIED FOR 2 YEARS. [id number] Jocelynn Thurston [address] [address] 06/20/2023 08:58:11 06/20/2023 09:54:28 Benign essential hypertension 8085357 I10 He has not required medication for hypertensi on since weight loss after bariatric surgery. General ex amination of patient 369988301 Z00.00 Hypothyroidism 80656610 E03.9 Mixed hyperlipidemia 267 020223 E78.2 Vitamin D deficiency 347 61638 E55.9 History of bariatric surgical procedure 053960322 Z98.84 Again instructed patient on following bariatric diet, encouraged aerobic exercise, and recommende d he begin his bariatric vitamin program again. Body mass index 30+ - obesity 571905922 Z68.37 Shoulder joint pain 2679 31854 M25.519 LEFT. 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 Please see exam packet for full details of exam. He was encouraged to work on a low carbohydra te diet, exercise, weight loss, and smoking cessation. [id number] Jocelynn Thurston [address] [address] 08/20/2024 13:50:08 08/20/2024 15:12:03 Adult health examination 934892970 Z00.00 The patient advised to continue a healthy diet and exercise regularly. He was also advised to:follow up with a urologist have a dermatogy skin screening . Labs will be sent to evaluate blood count, renal function lipids. Advised patient to follow up in 1 year or sooner if needed. Hypertensive disorder 38 370477 I10 Low carb low fat diet, exercise, weight loss and smoking cessation discussed, Hypothyroidism 18306282 E03.9 Vitamin D deficiency 347 06043 E55.9 He was reminded to start taking Bariatric vitamin again daily. Mixed hyperlipidemia 267 717587 E78.2 May need to restart statin due to weight gain. He will RTC on Friday AM for fasting labs. Tobacco de pendence caused by cigarettes 9374494680 6063831 F17.210 Smoking cessation emphasized . Body mass index 30+ - obesity 627228644 Z68.37 Persistent insomnia 1919 26141 G47.09 Sleep hygiene and rare prn use of seroquel for insomnia was continued. Chest pain 46652981 R07. 9 Father passed from CAD w/ aortic stenosis. He complains of intermitte nt CP at rest for past 4-6 weeks. Denies CP at present. EKG was NSR. He thinks he had echo and stress test over 5 years ago. Calculus o f kidney and ureter 200483055 N20.2 He has a Urology f/up appt. Will start on potassium citrate daily and discussed decreasing Mt Dew intake. [id number] Jocelynn Thurston APRN [address] [address] 08/17/2025 08:56:56 08/17/2025 10:39:56 Acute bronchitis 49416519 J20.9 [id number] Elan Saavedra presented with a constant headache [...] relief. Body mass index 30+ - obesity 455209843 E66.9 12984206 Health Concerns Section Related Observation LastModified by Organization Detai ls LastModified Time None Recorded Concern Status LastModified by Organization Details LastModified Time None Recorded Advance Directives Directive N: Payers Insurance Date Sequence Insurance Name Policy Number Policy Dennis Covered Member ID Dennis Member ID Guarantor Name 10/14/2025 [facility] Elan Saavedra [id number] Elan Saavedra 08/20/2024 KACIE Saavedra [id number] Elan Saavedra 09/28/2024 1 UNSPECIFIED REMIT PAYOR Elan Saavedra Notes Date Note Type Note Provider Name and Address Organization Details Recorded Time 3 text/html ROS as noted in the [facility] 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 Please see CDL packet for full details of exam. Jocelynn Thurston APRN [address] [place], [address], [facility] [employer] 11/25/2022 12:39:35 3 text/html Annual WellnessReported by PatientSocial/Behavioral HistoryFor diet and nutrition, patient reportshigh carbohydrate mealsbut reportsdiscussed vitamin and supplement use,discussed portion control, anddiscussed diet improvement. For fracture risk, patient reportshistory of fracturesandprevious musculoskeletal injuriesbut reportsno recent explained fractureandno sudden unexplained fractures. For physical activity, patient reportsdiscussed weightbearing activitiesanddiscussed exercise habits. For additional lifestyle factors, patient reportsno tobacco useandno alcohol intake.Mental Status:For depression risk, patient reportsnever feels sad, empty, or tearful,no loss of interest in activities,no significant changes in weight,no sleep disturbances or insomnia,no agitation,no loss of energy,no feelings of worthlessness or guilt,no thoughts of suicide,no history of depression, andno history of mood disorders.Functional AbilityFor hearing, patient reportsno loss of hearing. For vision, patient reportsno vision problems. Musculoskeletal PainReported by PatientHPIFor quality, patient reportssharp. For severity, patient reportsdriving impairment,worsening,interf eres with sleep, andinterferes with work/school. For associated symptoms, patient reportsweak limbsandtinglingbut reportsno fever,no numbness of the legs/feet, andno incontinence. For location, patient reportsleft shoulder(previously had 3 surgeries on the shoulder due to rotator cuff tear per dr. capellan at [facility]. dr. capellan is no longer practicing. he is requesting to see another ortho as shoulder has again become weak and painful.). For duration, patient reportspresent for >12 months. For timing, patient reportsintermittent,pain at night, andgradual. For context, patient reportstrauma. For alleviating factors, patient reportsrestandchanging position. For prior tests/treatments, patient reportsprevious surgery.Last surgery on this shoulder 4-5 years ago. He cannot take NSAIDS due to bariatric surgery.ROS as noted in the HPI Patient with a history of hypothyroidism, hyperlipidemia, vitamin D deficiency. He is here for annual exam. He is status post gastric sleeve. He has regained some of the weight that he lost and admits he has not been diligent about following a healthy diet or exercising. Jocelynn Thurston, REED [address] [place] [address], [phone], [employer] 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 Please see CDL packet for full details of exam. Jocelynnwolfgang Thurston, [employer] [address] [facility], [place], [phone], [employer] 10/28/2023 18:08:36 4 text/html Annual WellnessReported by PatientSocial/Behavioral HistoryFor diet and nutrition, patient reportsdiet is high in fat, low in fiberandhigh carbohydrate mealsbut reportsdiscussed vitamin and supplement use,discussed portion control, anddiscussed diet improvement. For fracture risk, patient reportsprevious musculoskeletal injuriesbut reportsno history of fracturesandno recent explained fracture. For physical activity, patient reportsdoes not exercise on a regular basis. For additional lifestyle factors, patient reportstobacco usebut reportsno alcohol intake,discussed safe sex and sti risk, andpreconception/conception counseling given.Mental Status:For depression risk, patient reportssleep disturbances or insomniabut reportsnever feels sad, empty, or tearful,no loss of interest in activities,no significant changes in weight,no agitation,no loss of energy,no feelings of worthlessness or guilt,no thoughts of suicide,no history of depression, andno history of mood disorders(has chronic insomnia. he has had a sleep study before).Functional AbilityFor hearing, patient reportsno loss of hearing. For vision, patient reportsno vision problems. HypothyroidReported by PatientHPIFor associated symptoms, patient reportsweight gain ____lbs.andchest pain. For reason for visit, patient reportstsh check/labs. For duration, patient reports>12 months. For treatment, patient reportsnot on oral medication. Hypertension F/UReported by PatientHPIFor lifestyle, patient reportsnot exercising regularlyanddoes not adhere to low sodium diet. For associated symptoms, patient reportschest painbut reportsno dizziness,no lightheadedness,no shortness of breath,no palpitations,no edema,no calf pain with exertion, andno headache.He is a smoker Angina/Chest PainReported by PatientHPIFor location, patient reportsradiates to the neckbut reports__ scapular,upper substernal, andsubsternal on the left. For quality, patient reportspressureandheaviness . For context, patient reportsat rest. For aggravating factors, patient reportsstress/emotional upset. For associated symptoms, patient reportsresting episodesbut reportsno dyspnea,no cough,no decrease in exercise capacity,no fatigue,no nocturnal episodes,no associated palpitations,no associated dizziness,no weakness,no rigor,no fever,no muscle aches,no joint pain,no peripheral edema, andno hemoptysis. For severity, patient reportsmild. For duration, patient reportstypical duration is 20 minutes. For onset/timing, patient reportsstarted 4weeks ago,occurs weekly,abrupt onset without warning, andintermittent.ROS as noted in the HPI Was in the ER in May twice for recurrent renal stones. Had prediabetes and HTN, with HLD and Vit D deficiency until he had gastric sleeve surgery. Unfortunately he has gained some of that weight back. Jocelynn Thurston, [employer] [address] [place], [phone], [facility] [employer] 08/22/2024 16:11:13 5 text/html ROS as noted in the HPI Chief ComplaintConstant headache for a week and a half, body aches, difficulty breathing, fatigue, right ear pain that started last night when it felt like this eardrum popped , wheezing, cough with minimal sputum productionHistory of Present IllnessDustleory Saavedra presents with a constant headache that [...] scar after seeing an eye doctor in [place]. Jocelynn Thurston APRN [address] [place] [address], [place], [phone], [facility] [employer] 08/17/2025 13:14:33
--- NOTE | 2025-10-14 18:32 | CT_ITS ---
PROCEDURE INFORMATION: Exam: CT Abdomen And Pelvis Without Contrast Exam date and time: 10/14/2025 6:36 PM Age: 45 years old Clinical indication: Abdominal tenderness; Abdominal pain; Flank; Left; Prior surgery; Surgery date: 6+ months; Surgery type: Gastric sleeve; Additional info: Left flank pain, HX of stones TECHNIQUE: Imaging protocol: Computed tomography of the abdomen and pelvis without contrast. Radiation optimization: All CT scans at this facility use at least one of these dose optimization techniques: automated exposure control; mA and/or kV adjustment per patient size (includes targeted exams where dose is matched to clinical indication); or iterative reconstruction. COMPARISON: CT ABDOMEN PELVIS WO CON 05/16/2024 3:56 AM FINDINGS: Liver: Normal. No mass. Gallbladder and biliary ducts: Cholecystectomy. Pancreas: Normal. No ductal dilation. Spleen: Normal. No splenomegaly. Adrenal glands: Normal. No mass. Kidneys and ureters: Small bilateral renal calculi. Stomach and bowel: Gastric sleeve resection. Appendix: No evidence of appendicitis. Intraperitoneal space: Unremarkable. No free air. No significant fluid collection. Vasculature: Unremarkable. No abdominal aortic aneurysm. Lymph nodes: Unremarkable. No enlarged lymph nodes. Urinary bladder: Poorly evaluated due to underdistention. Reproductive: Unremarkable as visualized. Bones/joints: Unremarkable. No acute fracture. Soft tissues: Unremarkable. IMPRESSION: 1. No acute findings. 2. Bilateral nephrolithiasis without hydronephrosis or hydroureter.
--- NOTE | 2025-10-14 18:34 | HMH.EDGENADL ---
Discharge Plan Disposition Patient Disposition: Home, Self-Care Condition: Good Prescriptions Prescriptions: New dicyclomine 20 mg tablet 20 mg PO BID Qty: 20 0RF No Action methylprednisolone [Medrol (Golden)] 4 mg tablets,dose pack 4 mg PO PER PKG DIR Qty: 21 0RF tamsulosin 0.4 mg capsule 0.4 mg PO DAILY Qty: 30 0RF oxycodone 5 mg tablet 5 mg PO Q8H PRN (Reason: pain) Qty: 12 0RF ketorolac 10 mg tablet 10 mg PO Q8H PRN (Reason: pain) 4 Days Qty: 12 0RF ondansetron 4 mg tablet,disintegrating 4 mg PO Q8H PRN (Reason: nausea and vomiting) 4 Days Qty: 12 0RF meloxicam 7.5 MG tablet 7.5 mg PO BID 10 Days Qty: 20 0RF tizanidine 4 MG tablet 4 mg PO BID PRN (Reason: Breakthru Severe Pain) 7 Days Qty: 14 0RF prednisone 20 mg tablet 40 mg PO DAILY 5 Days Qty: 10 0RF doxycycline monohydrate 100 mg capsule 100 mg PO BID 5 Days Qty: 10 0RF Referrals Follow up/Referrals: Jocelynn Thurston [Primary Care Provider, Medical] - See instructions Activity Restrictions/Add. Instructions Additional Instructions/Restrictions: Take the Bentyl in addition to Tylenol Motrin as needed. Return to the emergency department for any acute or worsening symptoms. Clinical Impressions Clinical Impression: Abdominal pain Instructions Patient Instructions: DI for Urinary Tract Infection (UTI), DI for Urinary Tract Infection in Children Print Language Print Language: Danish Discharge ED Provider: Bessie Navarro Adult HPI General Chief complaint: Urogenital-Male Stated complaint: Left Lower Back Pain History of Kidney Stones Time Seen by Provider: 10/14/25 18:22 Mode of Arrival: Ambulatory Source of Information: Patient Description of Symptoms (Recalled from ER Triage Doc. by RN): Patient states that he has been having pain in left flank since about 1400, states he has a history of kidney stones and is concerned he has another one. Patient took 400 mg ibuprofen at that time. History of Present Illness HPI narrative: Patient is a 45-year-old male who presented to the emergency department with left flank pain that started around 2:00 today. Patient states that he has had history of kidney stones has had previous surgeries for this. Patient states that this pain feels very similar. Patient states that the pain is in his left back radiates into his left abdomen. Patient states that he took ibuprofen prior to arrival. Patient denies any nausea vomiting or diarrhea. Patient denies any chest pain or shortness of breath. Patient denies any other prior surgeries. Patient denies any fevers. Patient denies any upper respiratory symptoms. Related Data Previous Rx's ?Medication ?Instructions ?Recorded methylprednisolone 4 mg tablets in 4 mg PO PER PKG DIR #21 tabs 01/25/21 a dose pack (Medrol (Golden)) meloxicam 7.5 mg tablet 7.5 mg PO BID 10 days #20 tabs 07/08/21 tizanidine 4 mg tablet 4 mg PO BID PRN Breakthru Severe 07/08/21 Pain 7 days #14 tabs ketorolac 10 mg tablet 10 mg PO Q8H PRN pain 4 days #12 05/16/24 tabs ondansetron 4 mg disintegrating 4 mg PO Q8H PRN nausea and 05/16/24 tablet vomiting 4 days #12 tabs oxycodone 5 mg tablet 5 mg PO Q8H PRN pain #12 tabs 05/16/24 tamsulosin 0.4 mg capsule 0.4 mg PO DAILY #30 caps 05/16/24 doxycycline monohydrate 100 mg 100 mg PO BID 5 days #10 caps 11/17/24 capsule prednisone 20 mg tablet 40 mg (2 x 20 mg) PO DAILY 5 days 11/17/24 #10 tabs dicyclomine 20 mg tablet 20 mg PO BID #20 tabs 10/14/25 Allergies Allergy/AdvReac Type Severity Reaction Status Date / Time Penicillins Allergy Severe Anaphylaxis, Verified 03/07/22 14:59 and hives [facility] Disclaimer: The information contained in this section may have been updated after the patient was seen, as this information can be updated by other users. Medical History (Updated 10/14/25 @ 22:10 by Bessie Navarro DO) Tobacco abuse Abnormal EKG HTN (hypertension) SOB (shortness of breath) Chest pain Pre-op evaluation Social History Smoking Status: Current every day smoker tobacco type: cigarettes packs per day: 1 second hand exposure: Yes alcohol intake: never substance use type: denies use current occupational status: employed Travel in the last 8 weeks?: None household members: family housing: house current occupation: [employer] current occupational exposures/hazards: No caffeine: Yes Have you lived/traveled outside [place] in past 30 days?: No Contact w/someone who lives/traveled outside US past 30 days?: No Exposure to someone with infectious disease in past 14 days?: No Do you have a fever (greater than 100.4 F or 38 C)?: No Have you tested positive for COVID-19?: No Exposed to someone with COVID-19 in past 14 days?: No Do you have a sore throat?: No Do you have a cough?: No Do you have any weakness?: No Do you have any diarrhea?: No Are you experiencing any unusual bleeding?: No Do you have any muscle aches/pain?: No Do you have any abdominal pain?: No Are you experiencing loss of taste or smell?: No Other Medical History Have you received the Flu Vaccine for this season: No Have you received the Pneumonia Vaccine: No ROS Obtained: Yes All systems reviewed & no additional complaints except as documented and Yes Systems reviewed as appropriate & no additional complaints except as documented Physical Exam General General appearance: alert and in no apparent distress Head Head exam: atraumatic, normocephalic and normal inspection Eye Eye exam: Present normal appearance, PERRL and EOMI; Absent scleral icterus ENT ENT exam: Present normal exam and normal external ear exam Neck Neck exam: Present normal inspection and full ROM Chest Chest inspection: Present normal inspection and symmetric chest wall rise Respiratory Respiratory exam: Present normal lung sounds bilaterally; Absent respiratory distress or wheezes Cardiovascular Cardiovascular exam: Present regular rate, normal rhythm and normal heart sounds Abdominal Exam Abdominal exam: Present soft, distention and tenderness (L CVA tenderness); Absent guarding or rebound Extremities Exam Extremities exam: Present normal inspection and full ROM Back Exam Back exam: Present normal inspection and full ROM Neurological Exam Neurological exam: Present alert and oriented X3 Psychiatric Psychiatric exam: Present normal affect and normal mood Skin Skin exam: Present warm and dry Medical Decision Making Medical Records Medical records reviewed: Yes I reviewed the patient's medical records. Screening: Per USPSTF and CDC recommendations, given the prevalence of disease in our region, it is our hospital?s policy to screen for HIV and viral Hepatitis for all patients aged 18 and over and those with ongoing risk factors. [place] Inquiry Pt receiving controlled substance: No Vital Signs: 10/14/25 18:25 10/14/25 22:19 Temperature 97.8 F 97.9 F Temperature Source Oral Oral Pulse Rate 78 Pulse Rate [Right Brachial] 72 Respiratory Rate 16 16 Blood Pressure 140/91 H Blood Pressure [Right Arm] 172/101 H Blood Pressure Mean [Right Arm] 124 Blood Pressure Source Automatic Cuff Blood Pressure Source [Right Arm] Automatic Cuff Blood Pressure Position Sitting Blood Pressure Position [Right Arm] Sitting 02 Sat by Pulse Oximetry 100 Oxygen Delivery Method Room Air Room Air Lab Data Lab results reviewed: Yes I reviewed the patient's lab results. Lab Results 10/14/25 18:35: Urine Color Yellow, Urine Appearance Clear, Urine pH 6.0, Ur Specific [place] >= 1.030, Urine Protein Negative, Urine Glucose (UA) Negative, Urine Ketones Trace, Urine Blood Trace-i, Urine Nitrate Negative, Urine Bilirubin Negative, Urine Urobilinogen 0.2, Ur Leukocyte Esterase Negative, Urine RBC None, Urine WBC 3-5, Ur Squamous Epith Cells 3-5, Urine Bacteria None 10/14/25 18:52: WBC 8.6, RBC 5.31, Hgb 16.7, Hct 48.4, MCV 91.1, MCH 31.5 H, MCHC 34.5, RDW 13.2, Plt Count 214, MPV 10.0, Neut % (Auto) 44.7, Lymph % (Auto) 40.7, Christian % (Auto) 9.0, Eos % (Auto) 4.8, Baso % (Auto) 0.6, Neut # (Auto) 3.8, Lymph # (Auto) 3.5, Christian # (Auto) 0.8, Eos # (Auto) 0.4, Baso # (Auto) 0.1, Sodium 144, Potassium 3.9, Chloride 104, Carbon Dioxide 32 H, Anion Gap 11.9, BUN 12, Creatinine 0.90, Estimated Creat Clear 161, Estimated GFR 92, Est GFR ( Amer) 111, Glucose 90, Calcium 9.1, Total Bilirubin 0.3, AST 26, ALT 20, Alkaline Phosphatase 61, Total Protein 7.3, Albumin 4.1, Globulin 3.2, Albumin/Globulin Ratio 1.3, Lipase 30 10/14/25 18:52 10/14/25 18:52 Orders (Tests/Meds): ED MEDICATIONS Discontinued Medications Generic Name Dose Route Start Last Admin Trade Name Freq PRN Reason Stop Dose Admin Belladonna Alkaloids 60 ml 10/14/25 21:08 10/14/25 21:15 Belladonna Alkaloids 60 Ml Ml PO 10/14/25 21:09 60 ml ONCE ONE Administration Dicyclomine HCl 20 mg 10/14/25 21:08 10/14/25 21:14 Dicyclomine 10mg Capsule PO 10/14/25 21:09 20 mg ONCE ONE Administration Sodium Chloride 1,000 mls @ 999 mls/hr 10/14/25 18:32 10/14/25 19:50 Sod Chlor 0.9% 1000ml Bag IV 10/14/25 19:32 999 mls/hr .Q1H1M ONE Administration Ketorolac Tromethamine 30 mg 10/14/25 18:32 10/14/25 19:49 Ketorolac 30mg/Ml Vial IV 10/14/25 18:33 30 mg ONCE ONE Administration Morphine Sulfate 4 mg 10/14/25 18:32 10/14/25 19:50 Morphine 4mg/Ml Syringe IV 10/14/25 18:33 4 mg ONCE ONE Administration Ondansetron HCl 4 mg 10/14/25 18:32 10/14/25 19:49 Ondansetron 4mg/2ml Vial IV 10/14/25 18:33 4 mg ONCE ONE Administration ORDERS Category Date Time Status CT abdomen pelvis wo con Stat Cat Scan 10/14/25 18:32 Completed CBC w/Auto Diff [Complete Blood Count Auto Diff] Stat Lab 10/14/25 18:52 Completed CMP [Comprehensive Metabolic Panel] Stat Lab 10/14/25 18:52 Completed Lipase Stat Lab 10/14/25 18:52 Completed UA [Urinalysis and Microscopic] Stat Lab 10/14/25 18:35 Completed Urine Culture Stat Micro 10/14/25 18:35 Received Medical Decision Narrative: Patient is a 45-year-old male with a history of kidney stones who presents to the emergency department with left flank pain. On arrival, patient was hemodynamically stable with unremarkable vital signs Differential includes but not limited to: Pyelonephritis, nephrolithiasis, gastroenteritis, pancreatitis, amongst others. Labs were obtained as well as CT of the abdomen, patient was given Toradol and Zofran and morphine for pain control. Patient's labs were reviewed and interpreted by myself: CBC showed mild leukocytosis, hemoglobin is stable. CMP is unremarkable. Lipase normal. CT scan of the abdomen showed no acute pathology. Patient continued to have pain after his initial pain medications. Patient now states that his pain has radiated to his epigastric region and his right abdomen. Patient does not have a gallbladder. Patient was given a GI cocktail and Bentyl. After further evaluation, patient stated that his pain was significantly improved. At this time, patient was discharged home in stable condition. Patient was sent Bentyl advised to take Tylenol and ibuprofen. Patient was given return precautions. Critical Care Critical Care Time Critical Care Time: No
[2025-10-14 18:43] LABS: Microscopic, Urine URINE MICROSCOPIC (MICROSCOPIC)
[2025-10-14 18:55] LABS: Bilirubin,Urine Negative (Negative); Color,Urine YELLOW (Yellow); Glucose,Urine (UA) Negative (Negative); Ketones,Urine TRACE (Negative); Leukocyte Esterase,Urine Negative (Negative); PH,Urine 6.0 (5.0-8.5); Protein,Urine Negative (Negative); Specific Gravity, Urine >= 1.030 (1.005-1.030); Urobilinogen,Urine 0.2 EU/dl (0.2)
[2025-10-14 18:58] LABS: Hematocrit 48.4 % (42.0-52.0); Hemoglobin 16.7 g/dL (14.1-18.0); Immature Granulocytes % 0.2 %; Mean Corpuscular HGB Conc 34.5 g/dL (31.8-35.4); Mean Corpuscular Hemoglobin 31.5 pg (27.0-31.2); Mean Corpuscular Volume 91.1 fl (80-94); Nucleated Red Blood Cells % 0 %; Platelet Count 214 K/mm3 (142-424); Red Blood Count 5.31 M/mm3 (4.60-6.20); Red Cell Distribution Width-SD 44.6 fL; White Blood Count 8.6 K/mm3 (4.8-10.8)
[2025-10-14 19:12] LABS: Albumin Level 4.1 g/dl (3.5-5.0); Chloride 104 mmol/L (98-107); Potassium 3.9 mmoL/L (3.5-5.1); Sodium 144 mmol/L (136-145)
[2025-10-14 19:14] LABS: Alanine Aminotransferase 20 U/L (12-78); Aspartate Amino Transferase 26 U/L (17-59); Blood Urea Nitrogen 12 mg/dl (9-20); Creatinine Clearance Estimated 161 mL/min (50-200); Creatinine,Serum 0.90 mg/dl (0.66-1.25); Estimated Glomerular Filt Rate 92 ml/min (>60); GFR (African American) 111 ML/MIN (>60)
[2025-10-14 19:15] LABS: Albumin/Globulin Ratio 1.3 (1.1-1.8); Alkaline Phosphatase 61 U/L (38-126); Anion Gap 11.9 mEq/L (5-15); Bilirubin,Total 0.3 mg/dl (0.2-1.3); Calcium 9.1 mg/dl (8.4-10.2); Carbon Dioxide 32 mmol/L (22.0-30.0); Globulin 3.2 g/dL (1.3-3.2); Glucose 90 mg/dl (74-100); Lipase 30 U/L (23-300); Total Protein,Serum 7.3 g/dl (6.3-8.2)
[2025-10-14] MEDS: KETOROLAC 30MG/ML VIAL 30 MG IV (19:49)
[2025-10-14] MEDS: ONDANSETRON 4MG/2ML VIAL 4 MG IV (19:49)
[2025-10-14] MEDS: MORPHINE 4MG/ML SYRINGE 4 MG IV (19:50)
[2025-10-14] MEDS: 0.9 % SODIUM CHLORIDE 1000ML 1,000 ML 999 ML IV (19:50)
[2025-10-14] MEDS: BELLADONNA ALKALOIDS 60 ML ML PO (21:15)
[2025-10-14 22:19] VITALS: BP 140/91; PULSE 78; RESP 16; TEMP 36.6; O2SAT 99
== END 2025-10-14 22:22 | disposition home or self-care (01) ==
PROVIDERS: Emergency Provider Student in an Organized Health Care Education/Training Program; PCP Nurse Practitioner Family
DX: R10.A2 Flank pain, left side (principal); N20.0 Calculus of kidney; F17.210 Nicotine dependence, cigarettes, uncomplicated; I10 Essential (primary) hypertension
CPT/HCPCS: 74176; 80053; 81001; 83690; 85025; 87086; 96361; 96374; 96375; 99284; 99285; J1885; J2270; J2405; J7030